=== PATIENT | female | born 1965 | race Caucasian/White ===

== ENCOUNTER 2022-12-20 09:48 | Outpatient (OUT) | payer BC, SELFPAY ==
--- NOTE | 2022-12-20 10:30 | MM_ITS ---
Patient: KINZA GONZALEZ Exam Date: 12/20/2022 : 1965 Gender:F Ordering : DR Paddy Ronquillo . Admission #: [id number] Family : DR MARSHALLPEPE ARAMBULA Order #: [id number] CLICK HERE TO VIEW EXAM RADIOLOGY REPORT PROCEDURE: MM TOMOSYNTHESIS SCREENING BI COMPARISON: MG MAMM SCREEN 3D BARBARA CAD, 11/09/2021. MG MAMM SCREEN 3D BARBARA CAD, 11/03/2020. MG MAMM SCREEN BARBARA W CAD, 10/28/2019. MG MAMM BARBARA SCRN W CAD DIG, 03/15/2015. INDICATIONS: Screening mammogram Z12.31 Calculator Name NCI Breast Cancer Risk Assessment Tool 5 Year Breast Cancer Risk 0.90% Lifetime Breast Cancer Risk 5.90% Personal Breast Cancer No Personal Ovarian Cancer No Treatments None Family Cancers Father with lung/brain cancer at age 71; Uncle-paternal with throat cancer at age ~75. LOCATION: [facility] BREAST COMPOSITION: Scattered areas fibroglandular density. FINDINGS: DIAGNOSTIC CATEGORY 2--BENIGN FINDING: RIGHT BREAST: No significant suspicious finding. Scattered benign-appearing nodules are present. No significant change has occurred. LEFT BREAST: No significant suspicious finding. Scattered benign-appearing nodules are present. No significant change has occurred. RECOMMENDATIONS: ROUTINE MAMMOGRAM AND CLINICAL EVALUATION IN 12 MONTHS. PLEASE NOTE: A NORMAL MAMMOGRAM DOES NOT EXCLUDE THE POSSIBILITY OF BREAST CANCER. A CLINICALLY SUSPICIOUS PALPABLE LUMP SHOULD BE BIOPSIED. Dictated by: Devon Jensen M.D. on 12/20/2022 at 14:43 Approved by: Devon Jensen M.D. on 12/20/2022 at 14:46
--- NOTE | 2022-12-20 10:30 | XR_ITS ---
[address] [address] Patient Name: KINZA GONZALEZ MRN: [id number] date: 1965 Sex: F Assigned Patient Location: [facility] Current Patient Location: [facility] Accession/Order Number: [id number] Exam Date: 12/20/2022 10:12 Report Date: 12/20/2022 10:48 At the request of: MARIANA REDD Procedure: XR DEXA axial skeleton EXAMINATION: XR DEXA axial skeleton HISTORY: Osteoporosis screening Z13.820 COMPARISON: DEXA bone densitometry 10/28/2019 TECHNIQUE: Dual-energy X-ray absorptiometry (DXA) was performed. FINDINGS: SPINE ANALYSIS: Average bone mineral density is 1.219 g/cm2. T-score (standard deviation relative to young adult mean): 0.3 . +5.3% change since prior study. HIP ANALYSIS: Lowest bone mineral density is within the right femoral neck, 0.94 g/cm2. T-score (standard deviation relative to young adult mean): -1.0 . -0.4% change since prior study. IMPRESSION: World [employer] Classification: Normal - Low Fracture Risk Electronically authenticated by: ZOFIA ALEXANDER Date: 12/20/2022 10:48
== END 2022-12-20 09:49 | disposition home or self-care (01) ==
LOC: RAD 09:48
PROVIDERS: PCP Family Medicine; Visit Provider Obstetrics & Gynecology
DX: Z12.31 Encounter for screening mammogram for malignant neoplasm of breast (principal); Z13.820 Encounter for screening for osteoporosis
CPT/HCPCS: 77063; 77067; 77080

== ENCOUNTER 2023-11-18 20:54 | Outpatient (REF) | payer BC, SELFPAY ==
[2023-11-21 13:08] LABS: Age Gdln ACOG Testing Note (.); HPV Aptima Negative (Negative); IGP, Aptima HPV, rfx 16/18,45 Note (.)
== END 2023-11-18 20:55 | disposition home or self-care (01) ==
LOC: LAB 20:54
PROVIDERS: PCP Family Medicine; Visit Provider Obstetrics & Gynecology
DX: Z01.419 Encounter for gynecological examination (general) (routine) without abnormal findings (principal)
CPT/HCPCS: 87624; 88175

== ENCOUNTER 2023-12-24 14:48 | Outpatient (OUT) | payer BC, SELFPAY ==
--- NOTE | 2023-12-24 14:50 | MM_ITS ---
Patient Name: KINZA GONZALEZ MR#: [id number] : 1965 Exam Date: 12/24/2023 Ordering Doctor: DR Paddy Ronquillo . RADIOLOGY REPORT PROCEDURE: MM TOMOSYNTHESIS SCREENING BI COMPARISON: MM TOMOSYNTHESIS SCREENING BI, 12/20/2022. MG MAMM SCREEN 3D BARBARA CAD, 11/09/2021. INDICATIONS: Screening Calculator Name NCI Breast Cancer Risk Assessment Tool 5 Year Breast Cancer Risk 0.90% Lifetime Breast Cancer Risk 5.70% Personal Breast Cancer No Personal Ovarian Cancer No Treatments None Family Cancers Father with lung/brain cancer at age 71; Uncle-paternal with throat cancer at age ~75. LOCATION: [facility] BREAST COMPOSITION: There are scattered areas of fibroglandular density. FINDINGS: DIAGNOSTIC CATEGORY 2--BENIGN FINDING. NO CHANGE FROM COMPARISON. Scattered benign-appearing nodules are present. Scattered benign-appearing calcifications are present. Scattered benign-appearing lymph nodes are present. RIGHT BREAST: No significant suspicious finding. LEFT BREAST: No significant suspicious finding. RECOMMENDATIONS: ROUTINE MAMMOGRAM AND CLINICAL EVALUATION IN 12 MONTHS. PLEASE NOTE: A NORMAL MAMMOGRAM DOES NOT EXCLUDE THE POSSIBILITY OF BREAST CANCER. A CLINICALLY SUSPICIOUS PALPABLE LUMP SHOULD BE BIOPSIED. Dictated by: Jostin Alexander MD on 12/25/2023 at 07:38 Approved by: Jostin Alexander MD on 12/25/2023 at 07:39
== END 2023-12-24 14:49 | disposition home or self-care (01) ==
LOC: MAMMO 14:48
PROVIDERS: PCP Family Medicine; Visit Provider Obstetrics & Gynecology
DX: Z12.31 Encounter for screening mammogram for malignant neoplasm of breast (principal); Z80.1 Family history of malignant neoplasm of trachea, bronchus and lung; Z80.8 Family history of malignant neoplasm of other organs or systems
CPT/HCPCS: 77063; 77067

== ENCOUNTER 2024-11-19 19:54 | Outpatient (REF) | payer BC, SELFPAY ==
--- OUTSIDE RECORDS SUMMARY | 2024-11-19 09:00 | XMS_ITS | Encounter Summary ---
Author Organization [facility] Address [address] [facility] [place] [address] Care Team Providers Care News Anchor Name Role Phone Zay Emmanuel DO Primary Care Provider [phone] Reason for Visit * Reason Comments Well Women Visit Encounter Details Date Type Department Care Team (Late Contact Info) Description 11/19/2024 9:00 AM EDT Office Visit [facility] OB [address] [facility] [facility] [address] Paddy Ronquillo [address] [facility] [address] [place] [address] Well woman exam with routine gynecological exam; Breast cancer screening by mammogram; Postmenopausal state Social History Tobacco Use Types Packs/Day Years Used Date Smoking Tobacco: Former Cigarettes Smokeless Tobacco: Never Alcohol Use Standard Drinks/Week Comments Yes 8 (1 standard drink = 0.6 oz pur e alcohol) Comments Unknown Sex and Gender Information Value Date Recorded Sex Assigned at Female 10/20/2022 8:49 AM EDT Legal Sex Female 11:47 PM EDT Gender Identity Female 10/20/2022 8:49 AM EDT Sexual Orientation Straight 10/20/2022 8: 49 AM EDT documented as of this encounter Last Filed Vital Signs Vital Sign Reading Time Taken Comments Blood Pressure 122/78 11/19/2024 9:24 AM EDT Pulse - - Temperature - - Respiratory Rate - - Oxygen Saturation - - Inhaled Oxygen Concentration - - Weight 78.5 kg (173 lb) 11/19/2024 9:24 AM EDT Height - - Body Mass Index 31.64 11/18/2023 9:01 AM EDT documented in this encounter Progress Notes * Pam Dassasha, CLERK ANALYST - 11/19/2024 9:00 AM EDT Reason for Appointment: Patient ID: Kerry Lopez is a 59 y.o. female who presents for Well Women Visit Patient presents today for Annual Exam. MEDICATIONS Current Outpatient Medications Medication Instructions albuterol HFA 90 mcg/act inhaler 2 puffs, Inhalation, Every 4 hours PRN budesonide-formoterol (Symbicort) 80-4.5 MCG/ACT inhaler 2 puffs, Inhalation, 2 times daily, Rinse mouth with water after use to reduce aftertaste and incidence of candidiasis. Do not swallow. cetirizine (ZyrTEC) 10 MG tablet Daily FLUoxetine (PROZAC) 20 mg, Oral, Daily lisinopril 20 mg, Oral, Daily MAGNESIUM GLYCINATE PO Oral, Take 2 gummies a day Multiple Vitamins-Minerals (VITAMINS TO GO WOMEN PO) Oral, SHIVAM Vaginal moisture Take 2 capsules a day omeprazole OTC (PRILOSEC OTC) 20 mg, Daily before breakfast phentermine (Adipex-P) 37.5 MG tablet TAKE 1 TABLET BY MOUTH BEFORE BREAKFAST Specialty Vitamins Products (MENOPAUSE RELIEF PO) Oral, SHIVAM Take 2 gummies Specialty Vitamins Products (MENOPAUSE RELIEF PO) Take by mouth SUMAtriptan (IMITREX) 100 mg, Oral, 2 times daily PRN ALLERGIES No Known Allergies PROBLEMS Active Ambulatory Problems Diagnosis Date Noted Pain in female genitalia on intercourse 11/18/2023 Postmenopausal state 11/18/2023 Well woman exam with routine gynecological exam 11/18/2023 Resolved Ambulatory Problems Diagnosis Date Noted No Resolved Ambulatory Problems Past Medical History: Diagnosis Date Abnormal weight gain Anxiety with depression Dysmenorrhea Hot flashes due to menopause Mood change Obesity Uterine leiomyoma HISTORY PAST MEDICAL HISTORY SOCIAL HISTORY Past Medical History: Diagnosis Date Abnormal weight gain Anxiety with depression Dysmenorrhea Hot flashes due to menopause Mood change Obesity Uterine leiomyoma Social History Tobacco Use Smoking status: Former Types: Cigarettes Smokeless tobacco: Never Vaping Use Vaping status: Never Used Substance Use Topics Alcohol use: Yes Alcohol/week: 8.0 standard drinks of alcohol Types: 8 Shots of liquor per week Drug use: Never FAMILY HISTORY Family History Problem Relation Name Age of Onset Hypertension Mother SURGICAL HISTORY Past Surgical History: Procedure Laterality Date SECTION, LOW TRANSVERSE CHOLECYSTECTOMY DILATION AND CURETTAGE OF UTERUS HYSTERECTOMY 08/11/2018 [place] TONSILLECTOMY & ADENOIDECTOMY <AGE 13 TUBAL LIGATION VAGINA RECONSTRUCTION SURGERY vaginal tear repair REVIEW OF SYSTEMS Review of Systems: Review of Systems Constitutional: Negative. HENT: Negative. Eyes: Negative. Respiratory: Negative. Cardiovascular: Negative. Gastrointestinal: Negative. Genitourinary: Negative. Musculoskeletal: Negative. Skin: Negative. Neurological: Negative. All other systems reviewed and are negative. Hematological: Negative. Endocrine: Negative. Allergic/Immunologic: Negative. OBJECTIVE Objective: Physical Exam Constitutional: Appearance: Normal appearance. She is well-developed. Genitourinary: Vulva normal. Vaginal cuff intact. Cervix is absent. Uterus is absent. Breasts: Breasts are soft. Right: Normal. Left: Normal. Cardiovascular: Rate and Rhythm: Normal rate and regular rhythm. Abdominal: General: Bowel sounds are normal. There is no distension. Palpations: Abdomen is soft. Tenderness: There is no abdominal tenderness. There is no guarding or rebound. Musculoskeletal: General: No swelling. Normal range of motion. Right lower leg: No edema. Left lower leg: No edema. Neurological: Mental Status: She is alert and oriented to person, place, and time. Skin: General: Skin is warm and dry. Psychiatric: Mood and Affect: Mood normal. Behavior: Behavior normal. Vitals and nursing note reviewed. Exam conducted with a professor of history present. Vitals: Estimated body mass index is 31.64 kg/m?? as calculated from the following: Height as of 11/18/23: 5' 2 . Weight as of this encounter: 173 lb. BP: 122/78 No LMP recorded. ASSESSMENT & PLAN ICD-10-CM 1. Well woman exam with routine gynecological exam Z01.419 THIN PREP TIS PAP AND HR HPV DNA 2. Breast cancer screening by mammogram Z12.31 Bilateral screening mammogram Bilateral screening mammogram 3. Postmenopausal state Z78.0 Annual: Patient presents today for an annual exam. Patient states she is doing well and has no complaints. Pap was obtained without difficulty and patient given mammogram order to have scheduled/obtained. Discussed patient supplements by [employer] brand for menopause, that seem to be helping. Orders Placed This Encounter Procedures Bilateral screening mammogram Follow Up: Patient is to return in one year for annual unless needed otherwise. Documented by Pam Acevedo LPN on behalf of: Paddy Ronquillo DO documented in this encounter Plan of Treatment Upcoming Encounters Date Type Department Care Team (Late st Contact Info) Description 11/30/2025 10:00 AM EDT Office Visit [facility] [address] [facility] [facility] [phone] Paddy Ronquillo DO [address] [facility] [place] [address] Scheduled Orders Name Type Priority Associated Diagnoses Orde r Schedule Bilateral screening mammogram Imaging Routine Breast cancer screening by mammogram Expected: 11/19/2024, Expires: 01/19/2026 THIN PREP TIS PAP AND HR HPV DNA Pathology and Cytology Routine Well woman exam with routine gynecological exam Ordered: 11/19/2024 documented as of this encounter Visit Diagnoses Diagnosis Well woman exam with routine gynecological exam Routine gynecological examination Breast cancer screening by mammogram Postmenopausal state Asymptomatic postmenopausal status (age-related) (natural) documented in this encounter Care Teams News Anchor Relationship Specialty Start Date End Date Zay Emmanuel DO PCP - General 11/13/22 documented as of this encounter
--- OUTSIDE RECORDS SUMMARY | 2024-11-19 19:57 | XMS_ITS | Encounter Summary ---
Author Organization [facility] Address [address] [facility] [place] [address] Care Team Providers Care Receiver Name Role Phone Héctormabel Zay Renu ANDREW Primary Care Provider [phone] Encounter Details Date Type Department Care Team (Late Contact Info) Description 12/27/2022 Abstract [facility] [address] [place] [address] Paddy Ronquillo [facility] [address] [place], [place] [address] Social History Tobacco Use Types Packs/Day Years [...] AM EDT documented as of this encounter Plan of Treatment Upcoming Encounters Date Type Department Care Team (Late Contact Info) Description 11/30/2025 10:00 AM EDT Office Visit [facility] [address] [place] [address] Paddy Ronquillo [facility] [address] [place], [place] [address] documented as of this encounter Visit Diagnoses Not on filedocumented in this encounter Care Teams Receiver Relationship Specialty Start Date End Date Zay Emmanuel DO PCP - General 11/13/22 documented as of this encounter
--- OUTSIDE RECORDS SUMMARY | 2024-11-19 19:57 | XMS_ITS | Clinical Summary ---
Author Organization [facility] Address [address] [place] [address] Care Team Providers Care Chief Passenger Ship Steward/Stewardess Name Role Phone Zay Arambula DO Primary Care Provider [phone] Allergies No known active allergies Medications lisinopril 10 MG tablet Take 20 mg by mouth Daily Active budesonide-form oterol (Symbicort) 80-4.5 MCG/ACT inhaler Inhale 2 puffs in the morning and 2 puffs before bedtime. Rinse mouth with water after use to reduce aftertaste and incidence of candidiasis. Do not swallow.. Active albuterol HFA 90 mcg/act inhaler Inhale 2 puffs every 4 (four) hours if needed for wheezing. Active cetirizine (ZyrTEC) 10 MG tablet Daily 4 Active FLUoxetine (PROzac) 20 MG tablet Take 20 mg by mouth Daily 4 Active phentermine (Adipex-P) 37.5 MG tablet TAKE 1 TABLET BY MOUTH BEFORE BREAKFAST Active SUMAtriptan (Imitrex) 100 MG tablet Take 100 mg by mouth 2 (two) times a day as needed 3 Active Multiple Vitamins-Minera ls (VITAMINS TO GO WOMEN PO) Take by mouth SHIVAM Vaginal moisture Take 2 capsules a day Active omeprazole OTC (PriLOSEC OTC) 20 MG EC tablet Take 20 mg by mouth in the morning. Take before meals. Do not crush, chew, or split. Active MAGNESIUM GLYCINATE PO Take by mouth Take 2 gummies a day Active Specialty Vitamins Products (MENOPAUSE RELIEF PO) Take by mouth SHIVAM Take 2 gummies Active Specialty Vitamins Products (MENOPAUSE RELIEF PO) Take by mouth Activ e Active Problems Problem Noted Date Diagnosed Date Pain in female genitalia on intercourse 11/18/19 Postmenopausal state 11/18/2023 Well woman exam with routine gynecological exam 11/18/2023 Encounters Date Type Department Care Team Description 11/19/2024 9:00 AM EDT Office Visit [facility] [address] [facility] [place] [address] Paddy Ronquillo, Well woman exam with routine gynecological exam; Breast cancer screening by mammogram; Postmenopausal state 11/19/2024 Bamboo flowsheet [facility] [address] [facility] [place] [address] Paddy Ronquillo DO 11/14/2024 Travel 11/12/2024 Travel from Last 3 Months Family History Medical History Relation Name Comments Hypertension Mother Relation Name Status Comments Brother 1 Alive Brother 2 Daughter 1 Alive Daughter 2 Alive Father Mother Alive Son Alive Social History Tobacco Use Types Packs/Day Years Used Date Smoking Tobacco: Former Cigarettes Smokeless Tobacco: Never Tobacco Cessation:Counseling Given: Not Answered Alcohol Use Standard Drinks/Week Comments Yes 8 (1 standard drink = 0.6 oz pur e alcohol) Comments Unknown Sex and Gender Information Value Date Recorded Sex Assigned at Female 10/20/2022 8:49 AM EDT Legal Sex Female 11:47 PM EDT Gender Identity Female 10/20/2022 8:49 AM EDT Sexual Orientation Straight 10/20/2022 8: 49 AM EDT Last Filed Vital Signs Vital Sign Reading Time Taken Comments Blood Pressure 122/78 11/19/2024 9:24 AM EDT Pulse - - Temperature - - Respiratory Rate - - Oxygen Saturation - - Inhaled Oxygen Concentration - - Weight 78.5 kg (173 lb) 11/19/2024 9:24 AM EDT Height 157.5 cm (5' 2 ) 11/18/2023 9:01 AM EDT Body Mass Index 31.64 11/18/2023 9:01 AM EDT Plan of Treatment Upcoming Encounters Date Type Department Care Team (Late st Contact Info) Description 11/30/2025 10:00 AM EDT Office Visit [facility] [address] [facility] [place] [address] Paddy Ronquillo, DO [address] [place] [address] Health Maintenance Due Date Last Done Comments CT Colonography 1965 Colonoscopy 1965 FIT 1965 FOBT 1965 Sigmoidoscopy 1965 Mammogram 12/24/2024 12/25/2023 Influenza Vaccine (Season Ended) 2025 Colorectal Cancer Screening 12/21/2025 FIT-DNA 12/21/2025 12/21/2022, 04/28/2018 Pap Smear 11/07/2026 11/07/2021 Cervical Cancer Screening 01/01/2028 HPV/Cotest 01/01/2028 12/31/2022 Procedures Procedure Name Priority Date/Time Associated Diagnosis Comments MM TOMOSYNTHESIS SCREENING BI 12/25/2023 7:39 AM EDT THINPREP PAP AND HPV MRNA E6/E7 W/RFL HPV 16,18/45 Routine 12/31/2022 1:54 PM EDT Well woman exam with routine gynecological exam PAP SMEAR Routine 11/07/2021 12:00 AM EDT from Last 3 Months or Most Recently Relevant to Health Maintenance Results * MM TOMOSYNTHESIS SCREENING BI (12/25/2023 7:39 AM EDT) Anatomical Region Laterality Modality Other 12/25/2023 7:39 AM EDT Narrative 12/25/2023 7:40 AM EDT The [address] [address] Mammography Report Signed Patient: KINZA LOPEZ MR#: [id number] : 1965 Acct:[id number] Age/Sex: 58 / F ADM Date: 12/24/23 Loc: MAMMO Attending Dr: Paddy Ronquillo D.O. Ordering Physician: Paddy Ronquillo D.O. Results: Date of Service: 12/24/23 Follow Up: Procedure(s): MM tomosynthesis screening BI Accession Number(s): [id number] cc: Paddy Ronquillo D.O.; IESHA ARAMBULA Patient Name: KINZA LOPEZ MR#: [id number] : 1965 Exam Date: 12/24/2023 Ordering Doctor: DR Paddy Ronquillo . RADIOLOGY REPORT PROCEDURE: MM TOMOSYNTHESIS SCREENING BI COMPARISON: MM TOMOSYNTHESIS SCREENING BI, 12/20/2022. MG MAMM SCREEN 3D BARBARA CAD, 11/09/2021. INDICATIONS: Screening Calculator Name NCI Breast Cancer Risk Assessment Tool 5 Year Breast Cancer Risk 0.90% Lifetime Breast Cancer Risk 5.70% Personal Breast Cancer No Personal Ovarian Cancer No Treatments None Family Cancers Father with lung/brain cancer at age 71; Uncle-paternal with throat cancer at age 75. LOCATION: [facility] BREAST COMPOSITION: There are scattered areas of fibroglandular density. FINDINGS: DIAGNOSTIC CATEGORY 2--BENIGN FINDING. NO CHANGE FROM COMPARISON. Scattered benign-appearing nodules are present. Scattered benign-appearing calcifications are present. Scattered benign-appearing lymph nodes are present. RIGHT BREAST: No significant suspicious finding. LEFT BREAST: No significant suspicious finding. RECOMMENDATIONS: ROUTINE MAMMOGRAM AND CLINICAL EVALUATION IN 12 MONTHS. PLEASE NOTE: A NORMAL MAMMOGRAM DOES NOT EXCLUDE THE POSSIBILITY OF BREAST CANCER. A CLINICALLY SUSPICIOUS PALPABLE LUMP SHOULD BE BIOPSIED. Dictated by: Jostin Alexander MD on 12/25/2023 at 07:38 Approved by: Jostin Alexander MD on 12/25/2023 at 07:39 Dictated By: Jostin Alexander M.D. Signed By: 12/25/23 0740 DD/ 0739 TD/TT: Mail Processing Clerk: Procedure Note Radiology, Radiologist, - 12/25/2023 [place] [address] Mammography Report Signed Patient: KINZA LOPEZ DMR#: [id number] : 1965Acct:[id number] Age/Sex: 58 / FADM Date: 12/24/23 Loc: MAMMO Attending Dr: Paddy Ronquillo D.O. Ordering Physician: Paddy Ronquillo D.O.Results: Date of Service: 12/24/23Follow Up: Procedure(s): MM tomosynthesis screening BI Accession Number(s): [id number] cc: Paddy Ronquillo D.O.; ZOFIAYonathanIESHA Patient Name: KINZA LOPEZ MR#: [id number] : 1965 Exam Date: 12/24/2023 Ordering Doctor: DR Paddy Ronquillo . RADIOLOGY REPORT PROCEDURE: MM TOMOSYNTHESIS SCREENING BI COMPARISON: MM TOMOSYNTHESIS SCREENING BI, 12/20/2022. MG MAMM [id number] BARBARA CAD, 11/09/2021. INDICATIONS: Screening Calculator Name NCI Breast Cancer Risk Assessment Tool 5 Year Breast Cancer Risk 0.90% Lifetime Breast Cancer Risk 5.70% Personal Breast Cancer No Personal Ovarian Cancer No Treatments None Family Cancers Father with lung/brain cancer at age 71; Uncle-paternal with throat cancer at age 75. LOCATION: [facility] BREAST COMPOSITION: There are scattered areas of fibroglandulardensity. FINDINGS: DIAGNOSTIC CATEGORY 2--BENIGN FINDING. NO CHANGE FROM COMPARISON. Scattered benign-appearing nodules are present. Scatteredbenign-appearing calcifications are present. Scattered benign-appearing lymph nodes are present. RIGHT BREAST: No significant suspicious finding. LEFT BREAST: No significant suspicious finding. RECOMMENDATIONS: ROUTINE MAMMOGRAM AND CLINICAL EVALUATION IN 12 MONTHS. PLEASE NOTE: A NORMAL MAMMOGRAM DOES NOT EXCLUDE THE POSSIBILITY OFBREAST CANCER. A CLINICALLY SUSPICIOUS PALPABLE LUMP SHOULD BE BIOPSIED. Dictated by: Jostin Alexander MD on 12/25/2023 at 07:38 Approved by: Jostin Alexander MD on 12/25/2023 at 07:39 Dictated By: Jostin Alexander M.D. Signed By:12/25/23 0740 DD/ 0739 TD/TT: Mail Processing Clerk: us Paddy Yg DO [facility] Final Result * THINPREP PAP AND HPV MRNA E6/E7 W/RFL HPV 16,18/45 (12/31/2022 1:54 PM EDT) us Paddy Yg DO LAB BLOOD ORDERABLES Final Resul t EXTERNAL LAB * Pap Smear (11/07/2021 12:00 AM EDT) Swab Cervical swab / Unknown us Historical Provider LAB CYTOLOGY ORDERABLES F inal Result EXTERNAL LAB from Last 3 Months or Most Recently Relevant to Health Maintenance Insurance Care Teams Chief Passenger Ship Steward/Stewardess Relationship Specialty Start Date End Date Zay Arambula DO PCP - General 11/13/22
--- OUTSIDE RECORDS SUMMARY | 2024-11-19 19:57 | XMS_ITS | Encounter Summary ---
Author Organization [facility] Address [address] [facility] [place] [address] Care Team Providers Care Coiler Operator Name Role Phone Héctormabel Zay Renu ANDREW Primary Care Provider [phone] Encounter Details Date Type Department Care Team (Late Contact Info) Description 12/27/2022 Abstract [facility] [address] [place] [address] [facility] [address] [place], [place] [address] Social History Tobacco Use Types Packs/Day Years [...] 11/30/2025 10:00 AM EDT Office Visit [facility] [address] [place] [address] [facility] [address] [place], [place] [address] documented as of this encounter Visit Diagnoses Not on filedocumented in this encounter Care Teams Coiler Operator Relationship Specialty Start Date End Date Zay Emmanuel DO PCP - General 11/13/22 documented as of this encounter
--- OUTSIDE RECORDS SUMMARY | 2024-11-19 19:57 | XMS_ITS | Encounter Summary ---
Author Organization [facility] Address [address] [facility] [place] [address] Care Team Providers Care Electric Powerline Examiner Name Role Phone Zay Emmanuel DO Primary Care Provider Encounter Details Date Type Department Care Team (Latest Contact Info) Description 11/12/2024 Travel Social History Tobacco Use Types Packs/Day Years [...] EDT Office Visit [facility] [address] [place] [phone] Paddy Ronquillo DO [address] [facility] [place] [address] documented as of this encounter Visit Diagnoses Not on filedocumented in this encounter Care Teams Electric Powerline Examiner Relationship Specialty Start Date End Date Zay Emmanuel DO PCP - General 11/13/22 documented as of this encounter
--- OUTSIDE RECORDS SUMMARY | 2024-11-19 19:57 | XMS_ITS | Encounter Summary ---
Author Organization [facility] Address [address] [facility] [place] [address] Care Team Providers Care Sprinkler Inspector Name Role Phone Zay Emmanuel Renu ANDREW Primary Care Provider [phone] Encounter Details Date Type Department Care Team (Late Contact Info) Description 11/12/2022 Abstract [facility] [address] [place] [address] [address]addy Ronquillo[address]i, [facility] Social History Tobacco Use Types Packs/Day Years Used Date Smoking Tobacco: Never Assessed Comments Unknown Sex and Gender Information Value Date Recorded Sex Assigned at Female 10/20/2022 8:49 AM EDT Legal Sex Female 11:47 PM EDT Gender Identity Female 10/20/2022 8:49 AM EDT Sexual Orientation Straight 10/20/2022 8: 49 AM EDT COVID-19 Exposure Response Date Recorded In the last 10 days, have yo u been in contact with someone who was confirmed or suspected to have Coronavirus/COVID-19? No / Unsure 11/12/2022 2:45 PM EDT documented as of this encounter Plan of Treatment Upcoming Encounters Date Type Department Care Team (Late Contact Info) Description 11/30/2025 10:00 AM EDT Office Visit [facility] [address] [place] [address] Paddy Ronquillo [facility] Kw[place]i, [facility]11 documented as of this encounter Visit Diagnoses Not on filedocumented in this encounter Care Teams Sprinkler Inspector Relationship Specialty Start Date End Date Zay Emmanuel DO PCP - General 11/13/22 documented as of this encounter
--- OUTSIDE RECORDS SUMMARY | 2024-11-19 19:57 | XMS_ITS | Clinical Summary ---
Author Organization [facility] Address [address] [place], [place] [id number] Care Team Providers Care Business English Instructor Name Role Phone Unavailable Primary Care Provider Unavailabl e Social History Tobacco Use Types Packs/Day Years Used Date Smoking Tobacco: Never Assessed Comments Unknown Sex and Gender Information Value Date Recorded Sex Assigned at Not on file Legal Sex Female 11:02 AM EDT Gender Identity Not on file Sexual Orientation Not on file Plan of Treatment Not on file
--- OUTSIDE RECORDS SUMMARY | 2024-11-19 19:57 | XMS_ITS | Encounter Summary ---
Author Organization [facility] Address [address] [facility] [place] [address] Care Team Providers Care Finishing And Shipping Supervisor Name Role Phone Héctormabel Zay Renu ANDREW Primary Care Provider [phone] Encounter Details Date Type Department Care Team (Late Contact Info) Description 12/27/2022 Abstract [facility] [address] [place] [address] Paddy Ronquillo [facility] Kw[place]i, [place] [address] Social History Tobacco Use Types Packs/Day Years [...] 11/30/2025 10:00 AM EDT Office Visit [facility] [address] [place] [address] Paddy Ronquillo [facility] [address] [place], [place] [address] documented as of this encounter Visit Diagnoses Not on filedocumented in this encounter Care Teams Finishing And Shipping Supervisor Relationship Specialty Start Date End Date Zay Emmanuel DO PCP - General 11/13/22 documented as of this encounter
--- OUTSIDE RECORDS SUMMARY | 2024-11-19 19:57 | XMS_ITS | Encounter Summary ---
Author Organization [facility] Address [address] [place] [address] Care Team Providers Care Photovoltaic Subcontractor Name Role Phone Unavailable Primary Care Provider Unavailabl e Source Comments In the event this information is protected by the Federal Confidentiality of Alcohol and Drug AbusePatient Records regulations: The Federal rules restrict any use of the information to criminally investigate or prosecute any alcohol or drug abuse patient.[facility] Encounter Details Date Type Department Care Team (Late st Contact Info) Description 12/24/2023 Lab Requisition [facility] [place] [address] Spike Mcgregor MD [address] [place] [phone] Person encountering health services to consult on behalf of another person Social History Tobacco Use Types Packs/Day Years Used Date Smoking Tobacco: Never Assessed Comments Unknown Sex and Gender Information Value Date Recorded Sex Assigned at Not on file Legal Sex Female 11:02 AM EDT Gender Identity Not on file Sexual Orientation Not on file documented as of this encounter Plan of Treatment Not on file documented as of this encounter Procedures Procedure Name Priority Date/Time Associated Diagnosis Comments SURGICAL PATHOLOGY REFERENCE LAB CONSULT Routine 12/24/2023 11:10 AM EDT Person encountering health services to consult on behalf of another person documented in this encounter Results * SURGICAL PATHOLOGY REFERENCE LAB CONSULT (12/24/2023 11:10 AM EDT) Case Report Surgical Pathology Report Case: [id number] Authorizing Provider: Spike Mcgregor, Collected: 12/24/2023 11:10 AM Ordering Location: [facility] Received: 12/24/2023 11:09 AM [facility] Pathologist: Nani Dorsey MD Specimen: Slide(s), 1 SLIDE [id number] 12/24/2023 5:08 PM EDT [facility] FINAL DIAGNOSIS A. Skin, left axilla, shave biopsy: - Squamous hyperplasia with acantholytic dyskeratosis, see comment. ÁNGEL/roberto 12/24/2023 12/24/2023 5:08 PM EDT [facility] at 1708 EDT Diagnosis Comment Thank you for consulting on this case of a 58-year-old woman with a lesion on the left axilla. Histologic sections demonstrate a lobular, endophytic, squamous proliferation with hyperkeratosis, hypergranulosis, and acanthosis with downward extension of the rete ridges into villus projections. The epidermis shows marked acantholysis from the suprabasilar region to the upper third of the epidermis, with scattered dyskeratosis of keratinocytes. The findings are those of squamous hyperplasia with acantholytic dyskeratosis. As a solitary lesion the findings are most consistent with a warty dyskeratoma. If part of a rash, the findings could be consistent with Blanco's disease. Clinical correlation remains essential. Thank you for consulting on this case and please keep me apprised of any pertinent clinical follow-up. 12/24/2023 5:08 PM EDT [facility] Clinical History CONSULT REQUESTED 12/24/2023 5:08 PM EDT [facility] Performing Lab Diagnostic interpretation performed at [facility], [address] [place] [address]# [id number] Professor Of Environmental Studies: Patrice Anguiano M.D. 12/24/2023 5:08 PM EDT [facility] Blocks or Slides MICROSCOPE SLIDE / Unknown 12/24/2023 11:10 AM EDT 12/24/2023 11:09 AM EDT us Spike Dsouza MD SURGICAL PATHOLOGY Fin al Result Performing Organization Address City/State/[facility] Co de Phone Number [facility] [place] [id number] [place] [address], documented in this encounter Visit Diagnoses Diagnosis Person encountering health services to consult on behalf of another person Other person consulting on behalf of another person documented in this encounter
--- OUTSIDE RECORDS SUMMARY | 2024-11-19 19:57 | XMS_ITS | Encounter Summary ---
Author Organization [facility] Address [address] [facility] [place] [address] Care Team Providers Care Tax Professional Name Role Phone HéctorZay monroe Renu ANDREW Primary Care Provider [phone] Encounter Details Date Type Department Care Team (Late st Contact Info) Description 12/25/2023 Clinisync Result Encounter [facility] External Department Unsolicited Paddy Ronquillo, DO [address] [place] [id number] Social History Tobacco Use Types Packs/Day Years [...] EDT Office Visit [facility] [address] [place] [phone] Paddy Ronquillo DO [address] [place] [address] documented as of this encounter Procedures Procedure Name Priority Date/Time Associated Diagnosis Comments MM TOMOSYNTHESIS SCREENING BI 12/25/2023 7:39 AM EDT documented in this encounter Results * MM TOMOSYNTHESIS SCREENING BI (12/25/2023 7:39 AM EDT) Anatomical Region Laterality Modality Other 12/25/2023 7:39 AM EDT Narrative 12/25/2023 7:40 [place] [address] Mammography Report Signed Patient: KINZA LOPEZ MR#: [id number] : 1965 Acct:[id number] Age/Sex: 58 / F ADM Date: 12/24/23 Loc: MAMMO Attending Dr: Paddy Ronquillo D.O. Ordering Physician: Paddy Ronquillo D.O. Results: Date of Service: 12/24/23 Follow Up: Procedure(s): MM tomosynthesis screening BI Accession Number(s): [id number] cc: Paddy Ronquillo D.O.; IESHA EMMANUEL Patient Name: KINZA LOPEZ MR#: [id number] : 1965 Exam Date: 12/24/2023 Ordering Doctor: [...] throat cancer at age 76. LOCATION: [facility] BREAST COMPOSITION: There are scattered areas [...] Signed By: 12/25/23 0740 DD/ 0739 TD/TT: Utility Gelatin Maker: Procedure Note Radiology, Radiologist, MD - 12/25/2023 [place] [address] Mammography Report Signed Patient: KINZA LOPEZ DMR#: [id number] : 1965Acct:[id number] Age/Sex: 58 / FADM Date: 12/24/23 Loc: MAMMO Attending Dr: Paddy Ronquillo D.O. Ordering Physician: Paddy Ronquillo D.O.Results: Date of Service: 12/24/23Follow Up: Procedure(s): MM tomosynthesis screening BI Accession Number(s): [id number] cc: Paddy Ronquillo D.O.; IESHA EMMANUEL Patient Name: KINZA LOPEZ MR#: [id number] : 1965 Exam Date: 12/24/2023 Ordering Doctor: DR Paddy Ronquillo . RADIOLOGY REPORT PROCEDURE: MM TOMOSYNTHESIS SCREENING BI COMPARISON: MM TOMOSYNTHESIS SCREENING BI, 12/20/2022. MG MAMM [id number] BARBARA CAD, 11/09/2021. INDICATIONS: Screening Calculator Name NCI Breast Cancer Risk Assessment Tool 5 Year Breast Cancer Risk 0.90% Lifetime Breast Cancer Risk 5.70% Personal Breast Cancer No Personal Ovarian Cancer No Treatments None Family Cancers Father with lung/brain cancer at age 71; Uncle-paternal with throat cancer at age 75. LOCATION: [facility] BREAST COMPOSITION: There are scattered areas [...] 07:39 Dictated By: Jostin Alexander M.D. Signed By:12/25/2340 DD/ 8 TD/TT: Utility Gelatin Maker: Paddy Ronquillo DO [facility] Final Result documented in this encounter Visit Diagnoses Not on filedocumented in this encounter Care Teams Tax Professional Relationship Specialty Start Date End Date Zay Emmanuel DO PCP - General 11/13/22 documented as of this encounter
--- OUTSIDE RECORDS SUMMARY | 2024-11-19 19:57 | XMS_ITS | Encounter Summary ---
Author Organization [facility] Address [address] [facility] [place] [address] Care Team Providers Care Technician Support Association Name Role Phone Héctormabel Zay Renu ANDREW Primary Care Provider [phone] Encounter Details Date Type Department Care Team (Late Contact Info) Description 11/19/2024 Bamboo flowsheet [facility] [address] [place] [address] Paddy Ronquillo [address] [place], [place] [address] Social History Tobacco Use Types Packs/Day Years [...] 11/30/2025 10:00 AM EDT Office Visit [facility] [address] [place] [address] Paddy Ronquillo [facility] [place] [address] documented as of this encounter Visit Diagnoses Not on filedocumented in this encounter Care Teams Technician Support Association Relationship Specialty Start Date End Date Zay Emmanuel DO PCP - General 11/13/22 documented as of this encounter
--- OUTSIDE RECORDS SUMMARY | 2024-11-19 19:58 | XMS_ITS | CCD ---
Author Organization [facility] CliniSypr Care Team Providers Care Safety Instructor Name Role Phone Zay Arambula Unavailable DO Zay Arambula Primary Care Provider DO Zay Arambula Attending Provider [phone] ZAY ARAMBULA Primary Care Unavailable IVANIA ., DR PEÑA Attending Unavailable IVANIA ., DR PEÑA Consulting Unavailable IVANIA ., DR PEÑA Admitting Unavailable DO Zay Arambula Primary Care Provider DO Zay Arambula Attending Provider AJAY NEWBY Attending Unavailable MARIANA RONQUILLO Attending Unavailable DO Zay Arambula Primary Care Provider [phone] DO Zay Arambula Attending Provider [phone] Zay Arambula DO Primary Care Provider [phone] Zay Arambula DO Attending Provider [phone] Zay Arambula Primary Care Unavailable Zay Arambula Attending Unavailable Zay Arambula Admitting Unavailable Zay Arambula Attending Unavailable Zay Arambula Admitting Unavailable Zay Arambula Primary Care Unavailable Zay Arambula Attending Unavailable Zay Arambula Admitting Unavailable Zay Arambula Primary Care Unavailable Zay Arambula Attending Unavailable Zay Arambula Admitting Unavailable Zay Arambula Primary Care Unavailable Medications Current Medications Medication Drug Class(es) Dates Sig (Normalized) Sig (Original) cetirizine hydrochloride 10 mg oral tablet (20 sources) Histamine-1 Receptor Antagonist Start: 08-07-2023 take 1 tablet by mouth once daily Cetirizine (Zyrtec) 10 mg tablet Active 10 MG PO Daily August 07, 2023 1:00am FreeTextSi tablet Orally Once a day; Note: Source Status: Taking; Provider: Cholo Collazo ( ) take 1 tablet by messi th every twenty-four hours ZyrTEC Allergy 10 MG 1 tablet Orally Once a day Active FLUoxetine 40 mg oral capsule (20 sources) Serotonin Reuptake Inhibitor Start: 09-09-2024 take 1 capsule by mouth once daily Fluoxetine (Prozac) 40 mg capsule Active 40 MG PO Daily September 09, 2024 12:00am Start: 08-07-2023 End: 09-09-2024 take 1 capsule by mouth once daily Fluoxetine 20 mg capsule Discontinued 20 MG PO Daily September 09, 2024 12:00am September 09, 2024 9:05am Start: 05-16-2023 take 1 tablet by messi th every twenty-four hours FLUoxetine HCl 20 MG 1 tablet Orally Once a day for 30 days Apr, Active lisinopril 20 mg oral tablet (20 sources) Angiotensin Converting Enzyme Inhibitor Start: 09-09-2024 take 1 tablet by mouth once daily Lisinopril 20 mg tablet Active 20 MG PO Daily September 09, 2024 9:45am Start: 04-30-2017 End: 09-09-2024 take 1 tablet by mouth once daily Lisinopril 10 mg tablet Discontinued 10 MG PO Daily November 25, 2023 4:30pm September 09, 2024 9:50am magnesium gluconate 550 mg oral tablet (3 sources) Start: 09-09-2024 take 1 tablet by mouth once daily Magnesium Gluconate 30 mg (550 mg) tablet Active 30 MG PO Daily September 09, 2024 12:00am omeprazole 20 mg delayed release oral capsule (3 sources) Proton Pump Inhibitor Start: 09-09-2024 take 1 capsule by mouth once daily Omeprazole 20 mg capsule,delayed release(DR/EC) Active 20 MG PO Daily September 09, 2024 12:00am ProAir HFA 108 (90 Base) MCG/ACT (18 sources) Start: 08-06-2017 take 2 puff(s) by inhalation every four hours as needed ProAir HFA 108 (90 Base) MCG/ACT 2 puffs as needed Inhalation every 4 hrs Jul, Active Start: 08-06-2017 take 2 puff(s) by in halation every four hours as needed ProAir HFA 108 (90 Base) MCG/ACT 2 puffs as needed Inhalation every 4 hrs prn Jul, Active Completed/Discontinued Medications Medication Drug Class(es) Dates Sig (Normalized) Sig (Original) [id number] 200 actuat albuterol 0.09 mg/actuat metered dose inhaler (20 sources) beta2-Adrenergic Agonist Start: 08-06-2017 take 2 puff(s) by inhalation every four hours as needed ProAir HFA 108 (90 Base) MCG/ACT 2 puffs as needed Inhalation every 4 hrs prn Jul, Active Start: 08-06-2017 Start: 04-30-2017 End: 08-09-2023 Albuterol Sulfate (Proair Hf a) 90 mcg/actuation HFA aerosol inhaler Discontinued 2 INH INHALATION Q6H as needed for Shortness Of Breath 8.5 August 08, 2023 3:16pm August 09, 2023 1:07pm azithromycin 250 mg oral tablet (15 sources) Macrolide Antimicrobial Start: 02-11-2024 End: 04-23-2024 Azithromycin (Zithromax Z-Sabas) 250 mg tablet Discontinued 0 PO .COMPLEX 6 April 14, 2024 12:00am April 23, 2024 4:50pm For 250 mg dose pack: take 500 mg today (day 1), then 250 mg for 4 days (days 2-5) PO Start: 09-24-2022 Zithromax Z-Pa k 250 MG as directed Orally as directed Sep, Active Start: 06-13-2021 Zithromax Z-Pa k 250 MG 2 tablet on the first day, then 1 tablet daily for 4 days Orally Once a day for 5 day(s) May, Active Start: 06-13-2021 120 actuat budesonide 0.16 mg/actuat / formoterol fumarate 0.0045 mg/actuat metered dose inhaler (20 sources) Corticosteroid, beta2-Adrenergic Agonist Start: 06-13-2023 take 2 puff(s) by inhalation once daily Budesonide-Formoterol Fumarate 160-4.5 MCG/ACT 2 puffs Inhalation Once a day May, Active Start: 04-30-2017 End: 09-09-2024 take 1 puff(s) by inhalation twice daily Budesonide-Formoterol 160-4.5 mcg/actuation HFA aerosol inhaler Discontinued 2 PUFF INHALATION Twice daily 10.2 May 27, 2024 12:56pm September 09, 2024 9:50am Start: 08-17-2015 take 2 puff(s) by in halation once daily as needed Symbicort 160-4.5 MCG/ACT 2 puffs Inhalation Once a day prn Aug, Active Start: 08-17-2015 citalopram 40 mg oral tablet (6 sources) Serotonin Reuptake Inhibitor Start: 04-30-2017 End: 08-07-2023 take 1 tablet by mouth once daily Citalopram (Celexa) 40 mg Tablet Discontinued 40 MG PO Daily April 30, 2017 1:00am August 07, 2023 5:21pm dexlansoprazole 60 mg delayed release oral capsule (6 sources) Proton Pump Inhibitor Start: 04-30-2017 End: 08-07-2023 take 1 capsule by mouth once daily Dexlansoprazole (Dexilant) 60 capsule,biphase delayed releas Discontinued 60 MG PO Daily April 30, 2017 1:00am August 07, 2023 5:22pm diclofenac sodium 0.01 mg/mg topical gel (15 sources) Nonsteroidal Anti-inflammatory Drug Start: 05-12-2024 End: 09-09-2024 apply 2 g topically four times daily Diclofenac Sodium (Aleve (Diclofenac)) 1 % gel Discontinued 2 GM TOPICAL Four times daily 100 90 May 12, 2024 4:07pm September 09, 2024 9:04am Start: 04-23-2024 End: 05-12-2024 apply 2 g topically four times daily Diclofenac Sodium (Aleve (Diclofenac)) 1 % gel Discontinued 2 GM TOPICAL Four times daily 100 90 April 23, 2024 1:00am May 12, 2024 4:08pm Start: 04-11-2021 Pennsaid 2 % 2 pumps Externally Twice a day Mar, Active Start: 04-11-2021 doxycycline hyclate 100 mg oral capsule (3 sources) Tetracycline-class Drug Start: 07-07-2024 End: 09-09-2024 take 1 capsule by mouth twice daily at mealtime Doxycycline Hyclate 100 mg capsule Discontinued 100 MG PO Twice daily 05 04July 07, 2024 1:00am September 09, 2024 9:05am take with food and full glass of water, no dairy products ibuprofen 800 mg oral tablet (6 sources) Nonsteroidal Anti-inflammatory Drug Start: 04-30-2017 End: 08-07-2023 take 1 tablet by mouth every eight hours as needed for pain Ibuprofen 800 mg tablet Discontinued 800 MG PO Q8H as needed for Pain April 30, 2017 1:00am August 07, 2023 5:22pm levoFLOXacin 500 mg oral tablet (3 sources) Quinolone Antimicrobial Start: 04-23-2024 End: 05-12-2024 take 1 tablet by mouth once daily Levofloxacin 500 mg tablet Discontinued 500 MG PO Daily April 23, 2024 1:00am May 12, 2024 3:25pm LORazepam 1 mg oral tablet (6 sources) Benzodiazepine Start: 04-30-2017 End: 08-07-2023 take 1 tablet by mouth at bedtime as needed for anxiety Lorazepam (Ativan) 1 mg Tablet Discontinued 1 MG PO Bedtime as needed for Anxiety April 30, 2017 1:00am August 07, 2023 5:22pm meclizine hydrochloride 25 mg oral tablet (19 sources) Antiemetic Start: 12-07-2022 take 1 tablet by mouth every twelve hours Meclizine HCl 25 MG 1 tablet as needed Orally every 12 hrs Nov, Active Start: 04-30-2017 End: 09-09-2024 take 1 tablet by mouth once daily as needed for dizziness Meclizine 25 mg tablet Discontinued 25 MG PO Daily as needed for prn dizziness May 12, 2024 4:07pm September 09, 2024 9:05am methylPREDNISolone 4 mg oral tablet (3 sources) Corticosteroid Start: 04-14-2024 End: 04-23-2024 take 1 tablet by mouth once Methylprednisolone (Medrol (Sabas)) 4 mg tablets,dose pack Discontinued 0 PO per package directions April 14, 2024 12:00am April 23, 2024 4:50pm PO PER PKG DIR mupirocin 0.02 mg/mg topical ointment (8 sources) RNA Synthetase Inhibitor Antibacterial Start: 02-11-2024 End: 04-23-2024 Mupirocin 2 % ointment Discontinued 1 APPLIC TOPICAL Twice daily February 12, 2024 10:07am April 23, 2024 4:50pm Nirmatrelvir-Ritonavi r (Paxlovid) 300 mg (150 mg x 2)-100 mg tablets,dose pack (3 sources) Start: 05-27-2024 End: 07-07-2024 Nirmatrelvir-Ritonavi r (Paxlovid) 300 mg (150 mg x 2)-100 mg tablets,dose pack Discontinued 0 PO .COMPLEX May 27, 2024 1:00am July 07, 2024 5:30pm take TWO 150 mg tablets of nirmatrelvir with ONE 100 mg tablet of ritonavir twice daily for 5 days PO phentermine hydrochloride 37.5 mg oral tablet (20 sources) Sympathomimetic Amine Anorectic Start: 08-07-2023 End: 04-23-2024 take 1 tablet by mouth once daily before breakfast Phentermine 37.5 mg tablet Discontinued 37.5 MG PO Daily February 11, 2024 3:01pm April 23, 2024 4:50pm 1 tablet before breakfast Orally Once a day Start: 06-13-2023 take 1 tablet by messi once daily before breakfast Adipex-P 37.5 MG 1 tablet before breakfast Orally Once a day for 30 days May, Active Start: 05-16-2023 take 1 tablet by messi once daily before breakfast Adipex-P 37.5 MG 1 tablet before breakfast Orally Once a day for 30 days Apr, Active Start: 04-18-2023 take 1 tablet by messi once daily before breakfast Adipex-P 37.5 MG 1 tablet before breakfast Orally Once a day for 30 days Apr, Active Start: 03-20-2023 take 1 tablet by messi once daily before breakfast Adipex-P 37.5 MG 1 tablet before breakfast Orally Once a day for 30 days Mar, Active predniSONE 20 mg oral tablet (11 sources) Start: 04-23-2024 End: 05-12-2024 Prednisone 20 mg tablet Discontinued 20 MG PO .COMPLEX April 23, 2024 1:00am May 12, 2024 3:25pm 20 mg orally BID for five days, QD for five days; Start: 09-24-2022 predniSONE 20 MG 1 tablet Orally BID for 5 days then Daily for 5 days Sep, Active Start: 06-13-2021 predniSONE 20 MG 1 tablet Orally BID x 5 days, daily x 5 days for 10 days May, Active SUMAtriptan 100 mg oral tablet (20 sources) Serotonin-1b and Serotonin-1d Receptor Agonist Start: 11-26-2016 End: 09-09-2024 Sumatriptan Succinate 100 mg Tablet Discontinued 1 dose pk PO As Directed as needed for Headache April 30, 2017 1:00am September 09, 2024 9:05am tiZANidine 4 mg oral tablet (15 sources) Central alpha-2 Adrenergic Agonist Start: 04-30-2017 End: 08-07-2023 take 1 tablet by mouth at bedtime Tizanidine 4 mg tablet Discontinued 4 MG PO Bedtime April 30, 2017 1:00am August 07, 2023 5:22pm Problems Active Problems Problem Classification Problem Date Documented Date Episodic/Chronic Abdominal hernia (20 sources) Umbilical hernia; Translations: [Umbilical hernia without obstruction or gangrene] Episodic Abdominal pain (20 sources) Epigastric pain; Translations: [Epigastric pain] 07-07-2024 Episodic Adjustment disorders (20 sources) Family tension; Translations: [Reaction to severe stress, unspecified] 02-11-2024 Chronic Anxiety disorders (20 sources) Anxiety disorder; Translations: [Anxiety disorder, unspecified] Chronic Asthma (20 sources) Asthma; Translations: [Other asthma] Onset: 05-01-2021 Resolved: 06-18-2021 Chronic Conditions associated with dizziness or vertigo (12 sources) Dizziness and giddiness; Translations: [Dizziness] Episodic Diabetes mellitus without complication (20 sources) Hyperglycemia; Translations: [Hyperglycemia, unspecified] Onset: 04-11-2021 Resolved: 04-11-2021 Episodic Disorders of lipid metabolism (20 sources) Hyperlipidemia; Translations: [Hyperlipidemia, unspecified] Onset: 04-11-2021 Resolved: 04-11-2021 Chronic Esophageal disorders (20 sources) Gastroesophageal reflux disease; Translations: [Gastro-esophageal reflux disease without esophagitis] 08-08-2023 Chronic Essential hypertension (20 sources) Essential hypertension; Translations: [Essential (primary) hypertension] Onset: 12-04-2021 Resolved: 12-04-2021 Chronic Headache; including migraine (20 sources) Migraine; Translations: [Migraine, unspecified, not intractable, without status migrainosus] Onset: 04-11-2021 Resolved: 04-11-2021 Chronic Headache; including migraine (11 sources) Headache; Translations: [Headache] 02-11-2024 Episodic Malaise and fatigue (20 sources) Fatigue; Translations: [Other fatigue] Onset: 04-11-2021 Resolved: 04-11-2021 Episodic Menopausal disorders (10 sources) Menopausal syndrome; Translations: [Menopausal and female climacteric states] Chronic Mood disorders (20 sources) Major depressive disorder, single episode, unspecified; Translations: [Depression] 04-30-2017 Chronic Other connective tissue disease (10 sources) Trochanteric bursitis; Translations: [Trochanteric bursitis, left hip] Episodic Other connective tissue disease (2 sources) Pain in right hand Onset: 06-13-2021 Resolved: 06-13-2021 Episodic Other infections; including parasitic (6 sources) Post-viral disorder; 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] 07-07-2024 Chronic Other lower respiratory disease (13 sources) Cough; Translations: [Cough] 05-12-2024 Episodic Other nervous system disorders (20 sources) Carpal tunnel syndrome; Translations: [Carpal tunnel syndrome, unspecified upper limb] Chronic Other non-traumatic joint disorders (20 sources) Knee pain; Translations: [Pain in right knee] Episodic Other non-traumatic joint disorders (10 sources) Hip pain; Translations: [Pain in left hip] Episodic Other nutritional; endocrine; and metabolic disorders (18 sources) Body mass index 30+ - obesity; Translations: [Body mass index (BMI) 30.0-30.9, adult] Chronic Other nutritional; endocrine; and metabolic disorders (6 sources) Obesity caused by energy imbalance; Translations: [Other obesity due to excess calories] Chronic Other nutritional; endocrine; and metabolic disorders (4 sources) Other obesity due to excess calories Chronic Other nutritional; endocrine; and metabolic disorders (2 sources) Body mass index (BMI) 32.0-32.9, adult Chronic Other nutritional; endocrine; and metabolic disorders (3 sources) Obese class I; Translations: [Body mass index (BMI) 31.0-31.9, adult] Chronic Other nutritional; endocrine; and metabolic disorders (1 source) Body mass index (BMI) 31.0-31.9, adult Chronic Other nutritional; endocrine; and metabolic disorders (7 sources) Obesity; Translations: [Obesity, unspecified] 09-05-2023 Chronic Other nutritional; endocrine; and metabolic disorders (5 sources) Obesity, unspecified; Translations: [Obesity, unspecified] Chronic Other nutritional; endocrine; and metabolic disorders (2 sources) Body mass index (BMI) 30.0-30.9, adult Chronic Other nutritional; endocrine; and metabolic disorders (6 sources) Overweight in adulthood with body mass index of 25 or more but less than 30; Translations: [Body mass index (BMI) 28.0-28.9, adult] 09-05-2023 Episodic Other nutritional; endocrine; and metabolic disorders (1 source) Body mass index (BMI) 29.0-29.9, adult; Translations: [Body Mass Index 29.0-29.9, adult] 08-08-2023 Episodic Other nutritional; endocrine; and metabolic disorders (1 source) Body mass index (BMI) 28.0-28.9, adult; Translations: [Body Mass Index 28.0-28.9, adult] 09-05-2023 Episodic Other nutritional; endocrine; and metabolic disorders (1 source) Body mass index (BMI) 27.0-27.9, adult; Translations: [Body Mass Index 27.0-27.9, adult] 02-11-2024 Episodic Other screening for suspected conditions (not mental disorders or infectious disease) (15 sources) Encounter for screening for malignant neoplasm of cervix; Translations: [Patient encounter status] Onset: 11-13-2022 Episodic Other skin disorders (4 sources) Skin tag; Translations: [Other hypertrophic disorders of the skin] 11-12-2023 Episodic Other upper respiratory disease (10 sources) Allergic rhinitis; Translations: [Allergic rhinitis, unspecified] Chronic Other upper respiratory disease (15 sources) Seasonal allergy; Translations: [Other seasonal allergic rhinitis] Chronic Other upper respiratory disease (2 sources) Other seasonal allergic rhinitis Chronic Other upper respiratory infections (18 sources) Sinusitis; Translations: [Chronic sinusitis, unspecified] Chronic Other upper respiratory infections (10 sources) Acute sinusitis; Translations: [Acute sinusitis, unspecified] Episodic Residual codes; unclassified (20 sources) Insomnia; Translations: [Insomnia, unspecified] Episodic Residual codes; unclassified (10 sources) Dyssomnia; Translations: [Sleep disorder, unspecified] Episodic Residual codes; unclassified (4 sources) Pain; Translations: [Pain, unspecified] 11-12-2023 Episodic Viral infection (6 sources) Disease caused by 2019-nCoV; Translations: [COVID-19] 05-27-2024 Episodic Past or Other Problems Problem Classification Problem Date Documented Da te Episodic/Chronic Neoplasms of unspecified nature or uncertain behavior (2 sources) Neoplasm of uncertain behavior, unspecified; Translations: [Neoplasm of uncertain behavior of skin] Onset: 12-13-2023 Episodic Other connective tissue disease (2 sources) Pain in right finger(s); Translations: [Pain of finger of right hand M79.644] Onset: 04-11-2021 Resolved: 05-01-2021 Episodic Other lower respiratory disease (1 source) Cough Onset: 06-13-2021 Resolved: 06-13-2021 Episodic Other non-traumatic joint disorders (5 sources) Pain in left knee; Translations: [Left knee pain] Onset: 04-13-2024 04-10-2024 Episodic Residual codes; unclassified (1 source) Localized edema Onset: 06-13-2021 Resolved: 06-13-2021 Episodic Unclassified (1 source) Lumbar back pain M54.50 Results Test Name Value Interpretation Reference Range Facility Alanine aminotransferase [En zymatic activity/volume] in Serum or PlasmaOrdered By: Zay Arambula on 09-09-2024 ALT [Catalytic activity/Vol] Alanine aminotransferase [Enzymatic activity/volume] in Serum or Plasma 7-52 [facility] Albumin [Mass/volume] in Ser um or Plasma by Bromocresol green (BCG) dye binding methoOrdered By: Zay Arambula on 09-09-2024 Albumin BCG dye [Mass/Vol] Albumin [Mass/volume] in Serum or Plasma by Bromocresol green (BCG) dye binding metho 3.5-5.7 [facility] Alkaline phosphatase [Enzyma tic activity/volume] in Serum or PlasmaOrdered By: Zay Arambula on 09-09-2024 ALP [Catalytic activity/Vol] Alkaline phosphatase [Enzymatic activity/volume] in Serum or Plasma 34-104 [facility] Aspartate aminotransferase [ Enzymatic activity/volume] in Serum or PlasmaOrdered By: Zay Arambula on 09-09-2024 AST [Catalytic activity/Vol] Aspartate aminotransferase [Enzymatic activity/volume] in Serum or Plasma 13-39 [facility] Basophils Auto (Bld) [#/Vol] Ordered By: Zay Arambula on 09-09-2024 Basophils (Bld) [#/Vol] Automated basoph il count 0.0-0.2 [facility] Basophils/100 WBC Auto (Bld) Ordered By: Zay Arambula on 09-09-2024 Basophils/100 WBC (Bld) Automated basophil % . [facility] Bilirubin.total [Mass/volume ] in Serum or PlasmaOrdered By: Zay Arambula on 09-09-2024 Bilirubin [Mass/Vol] Bilirubin.total [Mass/volume] in Serum or Plasma 0.3-1.0 [facility] CMP with reflex to A1Con Albumin [Mass/Vol] 4.7 g/dL Normal 3.5-5.7 [facility] Comment on above: Performed By: #### C BC, EBS A1C, CMP wRFX A1C, LIPID, TSH3 #### [facility] [address] [place] [address] [place] Albumin/Globulin [Mass ratio] 1.9 {ratio} Normal [facility] Comment on above: Performed By: #### C BC, EBS A1C, CMP wRFX A1C, LIPID, TSH3 #### [facility] [address] [place] [address] [place] ALP [Catalytic activity/Vol] 62 U/L Normal 34-104 [facility] Comment on above: Performed By: #### C BC, EBS A1C, CMP wRFX A1C, LIPID, TSH3 #### [facility] [address] [place] [address] [place] ALT [Catalytic activity/Vol] 40 U/L Normal 7-52 [facility] Comment on above: Performed By: #### C BC, EBS A1C, CMP wRFX A1C, LIPID, TSH3 #### [facility] [address] [place] [id number] [place] Anion gap [Moles/Vol] 14.1 mmol/L Normal 6.0-15.0 [facility] Comment on above: Performed By: #### C BC, EBS A1C, CMP wRFX A1C, LIPID, TSH3 #### [address] AST [Catalytic activity/Vol] 31 U/L Normal 13-39 [facility] Comment on above: Performed By: #### C BC, EBS A1C, CMP wRFX A1C, LIPID, TSH3 #### [address] Bilirubin [Mass/Vol] 0.6 mg/dL Normal 0.3-1.0 [facility] Comment on above: Performed By: #### C BC, EBS A1C, CMP wRFX A1C, LIPID, TSH3 #### [address] Calcium [Mass/Vol] 10.0 mg/dL Normal 8.6-10.3 [facility] Comment on above: Performed By: #### C BC, EBS A1C, CMP wRFX A1C, LIPID, TSH3 #### [place] [address] [place] Chloride [Moles/Vol] 104 mmol/L Normal 98-107 [facility] Comment on above: Performed By: #### C BC, EBS A1C, CMP wRFX A1C, LIPID, TSH3 #### [place] [address] [place] CO2 [Moles/Vol] 29.4 mmol/L Normal 21.0-31.0 [facility] Comment on above: Performed By: #### C BC, EBS A1C, CMP wRFX A1C, LIPID, TSH3 #### [place] [address] [place] Creatinine [Mass/Vol] 0.74 mg/dL Normal 0.60-1.20 [facility] Comment on above: Performed By: #### C BC, EBS A1C, CMP wRFX A1C, LIPID, TSH3 #### [facility] [address] [place] [address] [place] GFR/1.73 sq M.predicted MDRD (S/P/Bld) [Vol rate/Area] mL/min/{1.73_m2} Normal [facility] Comment on above: Performed By: #### C BC, EBS A1C, CMP wRFX A1C, LIPID, TSH3 #### [address] Globulin (S) [Mass/Vol] 2.5 g/dL Normal T he [facility] Comment on above: Performed By: #### C BC, EBS A1C, CMP wRFX A1C, LIPID, TSH3 #### [address] Glucose [Mass/Vol] 104 mg/dL High 70-100 [facility] Comment on above: Result Comment: ADA recommended reference range Performed By: #### C BC, EBS A1C, CMP wRFX A1C, LIPID, TSH3 #### [address] Potassium [Moles/Vol] 4.5 mmol/L Normal 3.5-5.1 [facility] Comment on above: Performed By: #### C BC, EBS A1C, CMP wRFX A1C, LIPID, TSH3 #### [address] Protein [Mass/Vol] 7.2 g/dL Normal 6.4-8.9 [facility] Comment on above: Performed By: #### C BC, EBS A1C, CMP wRFX A1C, LIPID, TSH3 #### [address] Sodium [Moles/Vol] 143 mmol/L Normal 136-145 [facility] Comment on above: Performed By: #### C BC, EBS A1C, CMP wRFX A1C, LIPID, TSH3 #### [address] Urea nitrogen [Mass/Vol] 12 mg/dL Normal 7-25 [facility] Comment on above: Performed By: #### C BC, EBS A1C, CMP wRFX A1C, LIPID, TSH3 #### [facility] [address] [place] [id number] [facility] Calcium [Mass/volume] in Ser um or PlasmaOrdered By: Zay Arambula on 09-09-2024 Calcium [Mass/Vol] Calcium [Mass/volume ] in Serum or Plasma 8.6-10.3 [facility] Carbon dioxide, total [Moles /volume] in Serum or PlasmaOrdered By: Zay Arambula on 09-09-2024 CO2 [Moles/Vol] Carbon dioxide, tota l [Moles/volume] in Serum or Plasma 21.0-31.0 [facility] Chloride [Moles/volume] in S benja or PlasmaOrdered By: Zay Arambula on 09-09-2024 Chloride [Moles/Vol] Chloride [Moles/volume] in Serum or Plasma 98-107 [facility] Cholesterol [Mass/volume] in Serum or PlasmaOrdered By: Zay Arambula on 09-09-2024 Cholesterol [Mass/Vol] Cholesterol [Mass/volume] in Serum or Plasma 140-200 [facility] Comment on above: Chol less than 200 m g/dl low riskChol 201-239 mg/dl borderline riskChol 240 mg/dl and greater high risk Cholesterol in HDL [Mass/vol ume] in Serum or PlasmaOrdered By: Zay Arambula on 09-09-2024 Cholesterol in HDL [Mass/Vol] Serum or plasma high density lipoprotein (HDL) cholesterol measurement 23-92 [facility] Comment on above: HDL CHOL ATP-III CLA SSIFICATION Cardiovascular RiskHDL > or equal to 60 mg/dL LOWHDL < 40 mg/dL HIGH Cholesterol in LDL Calc [Mas s/Vol]Ordered By: Zay Arambula on 09-09-2024 Cholesterol in LDL [Mass/Vol] Cholesterol in LDL [Mass/volume] in Serum or Plasma by calculation 0-100 [facility] Comment on above: LDL ATP III CLASSIFI CATIONLDL less than 100 mg/dL OptimalLDL 100-129 mg/dL Near or above optimalLDL 130-159 mg/dL Borderline highLDL 160-189 mg/dL HighLDL greater than 189 mg/dL Very high Cholesterol in VLDL Calc [Ma ss/Vol]Ordered By: Zay Arambula on 09-09-2024 Cholesterol in VLDL [Mass/Vol] Cholesterol in VLDL [Mass/volume] in Serum or Plasma by calculation [facility] Complete Blood Count Auto Di ffon 09-09-2024 Basophils (Bld) [#/Vol] 0.1 10*3/uL Normal 0.0-0.2 [facility] Comment on above: Result Comment: PERF ORMED BY: [place] [address] PATHOLOGIST SCOW DERRICK OPERATOR SPIKE DAVALOS M.D. Performed By: #### C BC, EBS A1C, CMP wRFX A1C, LIPID, TSH3 #### [address] Basophils/100 WBC (Bld) 0.9 % Normal . [facility] Comment on above: Performed By: #### C BC, EBS A1C, CMP wRFX A1C, LIPID, TSH3 #### [place] [address] [place] Eosinophils (Bld) [#/Vol] 0.1 10*3/uL Normal 0.0-0.45 [facility] Comment on above: Performed By: #### C BC, EBS A1C, CMP wRFX A1C, LIPID, TSH3 #### [address] Eosinophils/100 WBC (Bld) 1.2 % Normal . [facility] Comment on above: Performed By: #### C BC, EBS A1C, CMP wRFX A1C, LIPID, TSH3 #### [address] Erythrocyte distribution width (RBC) [Ratio] 12.7 % Normal 11.9-15.3 [facility] Comment on above: Performed By: #### C BC, EBS A1C, CMP wRFX A1C, LIPID, TSH3 #### [address] Hematocrit (Bld) [Volume fraction] 42.4 % Normal 34.0-46.4 [facility] Comment on above: Performed By: #### C BC, EBS A1C, CMP wRFX A1C, LIPID, TSH3 #### [address] Hemoglobin (Bld) [Mass/Vol] 14.2 g/dL Normal 11.8-15.4 [facility] Comment on above: Performed By: #### C BC, EBS A1C, CMP wRFX A1C, LIPID, TSH3 #### [address] Lymphocytes (Bld) [#/Vol] 1.3 10*3/uL Normal 1.00-4.8 [facility] Comment on above: Performed By: #### C BC, EBS A1C, CMP wRFX A1C, LIPID, TSH3 #### [address] Lymphocytes/100 WBC (Bld) 18.2 % Normal . [facility] Comment on above: Performed By: #### C BC, EBS A1C, CMP wRFX A1C, LIPID, TSH3 #### [address] MCH (RBC) [Entitic mass] 30.2 pg Normal 24.7-34.3 [facility] Comment on above: Performed By: #### C BC, EBS A1C, CMP wRFX A1C, LIPID, TSH3 #### [address] MCV (RBC) [Entitic vol] 89.9 fL Normal 80-100 [facility] Comment on above: Performed By: #### C BC, EBS A1C, CMP wRFX A1C, LIPID, TSH3 #### [address] Mean Corpuscular HGB Conc 33.6 g/dL Normal 32.0-35.0 [facility] Comment on above: Performed By: #### C BC, EBS A1C, CMP wRFX A1C, LIPID, TSH3 #### [address] Monocytes (Bld) [#/Vol] 0.6 10*3/uL Normal 0.0-0.8 [facility] Comment on above: Performed By: #### C BC, EBS A1C, CMP wRFX A1C, LIPID, TSH3 #### [facility] [address] [place] [address] [place] Monocytes/100 WBC (Bld) 8.2 % Normal . [facility] Comment on above: Performed By: #### C BC, EBS A1C, CMP wRFX A1C, LIPID, TSH3 #### [place] [address] [place] Neutrophils (Bld) [#/Vol] 5.3 10*3/uL Normal 1.8-7.7 [facility] Comment on above: Performed By: #### C BC, EBS A1C, CMP wRFX A1C, LIPID, TSH3 #### [place] [address] [place] Neutrophils/100 WBC (Bld) 71.5 % Normal . [facility] Comment on above: Performed By: #### C BC, EBS A1C, CMP wRFX A1C, LIPID, TSH3 #### [place] [address] [place] NRBC% 0.1 /100{WBC} Normal 0-0.5 [facility] Comment on above: Performed By: #### C BC, EBS A1C, CMP wRFX A1C, LIPID, TSH3 #### [place] [address] [place] Platelet mean volume (Bld) [Entitic vol] 8.4 fL Normal 6.3-10.7 [facility] Comment on above: Performed By: #### C BC, EBS A1C, CMP wRFX A1C, LIPID, TSH3 #### [place] [address] [place] Platelets (Bld) [#/Vol] 287 10*3/uL Normal 150-450 [facility] Comment on above: Performed By: #### C BC, EBS A1C, CMP wRFX A1C, LIPID, TSH3 #### [place] [address] [place] RBC (Bld) [#/Vol] 4.72 10*6/uL Normal 3.60-5.00 [facility] Comment on above: Performed By: #### C BC, EBS A1C, CMP wRFX A1C, LIPID, TSH3 #### [address] WBC (Bld) [#/Vol] 7.4 10*3/uL Normal 3.8-11.6 [facility] Comment on above: Performed By: #### C BC, EBS A1C, CMP wRFX A1C, LIPID, TSH3 #### [address] Creatinine [Mass/volume] in Serum or PlasmaOrdered By: Zay Arambula on 09-09-2024 Creatinine [Mass/Vol] Creatinine [Mass/volume] in Serum or Plasma 0.60-1.20 [facility] EBS A1C with Estimated Ave G luon 09-09-2024 Glucose [Mass/Vol] 111 mg/dL Normal [facility] Comment on above: Result Comment: PERF ORMED BY: [place] [address] PATHOLOGIST SCOW DERRICK OPERATOR SPIKE DAVALOS M.D. Performed By: #### C BC, EBS A1C, CMP wRFX A1C, LIPID, TSH3 #### [address] HbA1c (Bld) [Mass fraction] 5.5 % Normal 4.3-5.6 [facility] Comment on above: Result Comment: Incr eased risk for diabetes: 5.7 - 6.4 diabetes: >6.4 glycemic control for adults with diabetes: <7.0 Performed By: #### C BC, EBS A1C, CMP wRFX A1C, LIPID, TSH3 #### [place] [address] [place] Eosinophils Auto (Bld) [#/Vo l]Ordered By: Zay Arambula on 09-09-2024 Eosinophils (Bld) [#/Vol] Automated eosinophil count 0.0-0.45 [facility] Eosinophils/100 WBC Auto (Bl d)Ordered By: Zay Arambula on 09-09-2024 Eosinophils/100 WBC (Bld) Automated eosinophil % . [facility] Erythrocyte distribution wid th Auto (RBC) [Ratio]Ordered By: Zay Arambula on 09-09-2024 Erythrocyte distribution width (RBC) [Ratio] Erythrocyte distribution width [Ratio] by Automated count 11.9-15.3 [facility] FPG ECG *PCP OFFICE ONLY*on 09-09-2024 FPG ECG *PCP OFFICE ONLY* [facility] [place] [address] Electrocardiograph Report Signed Patient: Kerry Lopez MR#: [id number] : 1965 Acct:[id number] Age/Sex: 58 / F ADM Date: 09/09/24 Loc: EKGCAST Room: Type: [facility] Attending Dr: Zay Arambula DO Ordering Provider: Zay Arambula DO Date of Service: 09/09/24 ECG/FPG ECG *PCP OFFICE ONLY*: Z00.00 - Encounter for general adult medical examination ... Copies to: Test Reason : Blood Pressure : */* mmHG Vent. Rate : 78 BPM Atrial Rate : 78 BPM P-R Int : 118 ms QRS Dur : 70 ms QT Int : 390 ms P-R-T Axes : 72 50 45 degrees QTcB Int : 444 ms Normal sinus rhythm Normal ECG No previous ECGs available Confirmed by Osman Lance ([id number]) on 09/15/2024 5:16:12 AM Referred By: Electronically Signed By: Osman Lance Transcribed By: MUS Signed By Osman Lance MD 09/15/24 0516 Normal [facility] Globulin Calc (S) [Mass/Vol] Ordered By: aZy Arambula on 09-09-2024 Globulin (S) [Mass/Vol] Serum globulin measurement by calculation (mass/volume) [facility] Glucose [Mass/volume] in Ser um or PlasmaOrdered By: Zay Arambula on 09-09-2024 Glucose [Mass/Vol] Glucose [Mass/volume ] in Serum or Plasma High 70-100 [facility] Comment on above: ADA recommended refe rence range Hematocrit Auto (Bld) [Volum e fraction]Ordered By: Zay Arambula on 09-09-2024 Hematocrit (Bld) [Volume fraction] Hematocrit [Volume Fraction] of Blood by Automated count 34.0-46.4 [facility] Hemoglobin [Mass/volume] in BloodOrdered By: Zay Arambula on 09-09-2024 Hemoglobin (Bld) [Mass/Vol] Hemoglobin [Mass/volume] in Blood 11.8-15.4 [facility] Leukocytes [#/volume] correc mike for nucleated erythrocytes in Blood by Automated counOrdered By: Zay Arambula on 09-09-2024 WBC corrected for nucl RBC Auto (Bld) [#/Vol] Leukocytes [#/volume] corrected for nucleated erythrocytes in Blood by Automated coun 3.8-11.6 [facility] Lipid Panelon 09-09-2024 Cholesterol [Mass/Vol] 193 mg/dL Normal 140-200 [facility] Comment on above: Result Comment: Chol less than 200 mg/dl low risk Chol 201-239 mg/dl borderline risk Chol 240 mg/dl and greater high risk Performed By: #### C BC, EBS A1C, CMP wRFX A1C, LIPID, TSH3 #### [facility] [address] [place] [id number] [place] Cholesterol in HDL [Mass/Vol] 86 mg/dL Normal 23-92 [facility] Comment on above: Result Comment: HDL CHOL ATP-III CLASSIFICATION Cardiovascular Risk HDL > or equal to 60 mg/dL LOW HDL < 40 mg/dL HIGH Performed By: #### C BC, EBS A1C, CMP wRFX A1C, LIPID, TSH3 #### [facility] [address] [place] [address] [place] Cholesterol.total/Heide sterol in HDL [Mass ratio] 2.2 {ratio} Normal <5.0 [facility] Comment on above: Performed By: #### C BC, EBS A1C, CMP wRFX A1C, LIPID, TSH3 #### [facility] [address] [place] [address] [place] LDL Cholesterol,Calculated 94 mg/dL Normal 0-100 [facility] Comment on above: Result Comment: LDL ATP III CLASSIFICATION LDL less than 100 mg/dL Optimal LDL 100-129 mg/dL Near or above optimal LDL 130-159 mg/dL Borderline high LDL 160-189 mg/dL High LDL greater than 189 mg/dL Very high Performed By: #### C BC, EBS A1C, CMP wRFX A1C, LIPID, TSH3 #### [facility] [address] Triglyceride w/Reflex 64 mg/dL Normal 0-149 [facility] Comment on above: Result Comment: TRIG ATP III CLASSIFICATION TRIG less than 150 mg/dL Normal TRIG 150-199 mg/dL Borderline high TRIG 200-500 mg/dL High TRIG greater than 500 mg/dL Very high Standard traceable to the Center for Disease Conrtrol and Prevention (CDC) test method. Performed By: #### C BC, EBS A1C, CMP wRFX A1C, LIPID, TSH3 #### [facility] [address] VLDL CHOLESTEROL 12 mg/dL Normal [facility] Comment on above: Performed By: #### C BC, EBS A1C, CMP wRFX A1C, LIPID, TSH3 #### [facility] [address] Lymphocytes Auto (Bld) [#/Vo l]Ordered By: Zay Arambula on 09-09-2024 Lymphocytes (Bld) [#/Vol] Lymphocytes [#/volume] in Blood by Automated count 1.00-4.8 [facility] Lymphocytes/100 WBC Auto (Bl d)Ordered By: Zay Arambula on 09-09-2024 Lymphocytes/100 WBC (Bld) Lymphocytes/100 leukocytes in Blood by Automated count . [facility] MCH Auto (RBC) [Entitic mass ]Ordered By: Zay Arambula on 09-09-2024 MCH (RBC) [Entitic mass] MCH [Entitic mass] by Automated count 24.7-34.3 [facility] MCHC Auto (RBC) [Mass/Vol]Or dered By: Zay Arambula on 09-09-2024 MCHC (RBC) [Mass/Vol] MCHC [Mass/volume] by Automated count 32.0-35.0 [facility] MCV Auto (RBC) [Entitic vol] Ordered By: Zay Arambula on 09-09-2024 MCV (RBC) [Entitic vol] MCV [Entitic vol ume] by Automated count 80-100 [facility] Monocytes Auto (Bld) [#/Vol] Ordered By: Zay Arambula on 09-09-2024 Monocytes (Bld) [#/Vol] Automated blood monocyte count 0.0-0.8 [facility] Monocytes/100 WBC Auto (Bld) Ordered By: Zay Arambula on 09-09-2024 Monocytes/100 WBC (Bld) Automated monocyte % . [facility] Neutrophils Auto (Bld) [#/Vo l]Ordered By: Zay Arambula on 09-09-2024 Neutrophils (Bld) [#/Vol] Neutrophils [#/volume] in Blood by Automated count 1.8-7.7 [facility] Neutrophils/100 WBC Auto (Bl d)Ordered By: Zay Arambula on 09-09-2024 Neutrophils/100 WBC (Bld) Automated neutrophil % . [facility] No Panel InformationOrdered By: Zay Arambula on 09-09-2024 Estimated GFR (CKD-EPI) > 60.0 mL/Min [facility] Creatinine Clearance (Chem N/A [facility] Nucleated erythrocytes [Pres ence] in Blood by Automated countOrdered By: Zay Arambula on 09-09-2024 Nucleated RBC Auto Ql (Bld) Nucleated erythrocytes [Presence] in Blood by Automated count 0-0.5 [facility] Platelet mean volume Auto (B ld) [Entitic vol]Ordered By: Zay Arambula on 09-09-2024 Platelet mean volume (Bld) [Entitic vol] Platelet mean volume [Entitic volume] in Blood by Automated count 6.3-10.7 [facility] Platelets Auto (Bld) [#/Vol] Ordered By: Zay Arambula on 09-09-2024 Platelets (Bld) [#/Vol] Platelets [#/vol ume] in Blood by Automated count 150-450 [facility] Potassium [Moles/volume] in Serum or PlasmaOrdered By: Zay Arambula on 09-09-2024 Potassium [Moles/Vol] Potassium [Moles/volume] in Serum or Plasma 3.5-5.1 [facility] Protein [Mass/volume] in Ser um or PlasmaOrdered By: Zay Arambula on 09-09-2024 Protein [Mass/Vol] Protein [Mass/volume ] in Serum or Plasma 6.4-8.9 [facility] RBC Auto (Bld) [#/Vol]Ordere d By: Zay Arambula on 09-09-2024 RBC (Bld) [#/Vol] Erythrocytes [#/volume] in Blood by Automated count 3.60-5.00 [facility] Serum or plasma albumin/glob ulin mass ratioOrdered By: Zay Arambula on 09-09-2024 Albumin/Globulin [Mass ratio] Serum or plasma albumin/globulin mass ratio [facility] Serum or plasma anion gap de terminationOrdered By: Zay Arambula on 09-09-2024 Anion gap [Moles/Vol] Serum or plasma an ion gap determination 6.0-15.0 [facility] Serum or plasma total choles terol/high density lipoprotein (HDL) cholesterol mass ratOrdered By: Zay Arambula on 09-09-2024 Cholesterol.total/Heide sterol in HDL [Mass ratio] Serum or plasma total cholesterol/high density lipoprotein (HDL) cholesterol mass rat <5.0 [facility] Sodium [Moles/volume] in Ser um or PlasmaOrdered By: Zay Arambula on 09-09-2024 Sodium [Moles/Vol] Sodium [Moles/volume ] in Serum or Plasma 136-145 [facility] Thyroid Stimulating Hormoneo n 09-09-2024 TSH Qn 0.88 m[IU]/L Normal 0.45-5.33 [facility] Comment on above: Result Comment: PERF ORMED BY: [place] [address] PATHOLOGIST SCOW DERRICK OPERATOR SPIKE DAVALOS M.D. Performed By: #### C BC, EBS A1C, CMP wRFX A1C, LIPID, TSH3 #### [place] [address] [place] Thyrotropin [Units/volume] i n Serum or PlasmaOrdered By: Zay Arambula on 09-09-2024 TSH Qn Thyrotropin [Units/volume] in Serum or Plasma 0.45-5.33 [facility] Triglyceride [Mass/volume] i n Serum or PlasmaOrdered By: Zay Arambula on 09-09-2024 Triglyceride [Mass/Vol] Triglyceride [Mass/volume] in Serum or Plasma 0-149 [facility] Comment on above: TRIG ATP III CLASSIF ICATIONTRIG less than 150 mg/dL NormalTRIG 150-199 mg/dL Borderline highTRIG 200-500 mg/dL High TRIG greater than 500 mg/dL Very highStandard traceable to the Center for Disease Conrtrol and Prevention (CDC) test method. Urea nitrogen [Mass/volume] in Serum or PlasmaOrdered By: Zay Arambula on 09-09-2024 Urea nitrogen [Mass/Vol] Urea nitrogen [Mass/volume] in Serum or Plasma 01-08 [facility] WBC Auto (Bld) [#/Vol]Ordere d By: Zay Arambula on 09-09-2024 WBC (Bld) [#/Vol] Leukocytes [#/volume ] in Blood by Automated count 3.8-11.6 [facility] Laboratory - Chemistry and C hemistry - challengeon 07-07-2024 Bilirubin Ql (U) Negative [facility] Glucose (U) [Mass/Vol] Negative [facility] Ketones Ql (U) Negative [facility] pH (U) 6.5 [pH] [facility] Specific gravity (U) [Rel density] 1.010 [facility] Urobilinogen (U) [Mass/Vol] 0.2 mg/dL [facility] Laboratory - Specimen inform ationon 07-07-2024 Appearance (U) clear [facility] Color (U) yellow [facility] Laboratory - Urinalysison Leukocyte esterase Test strip Ql (U) Negative [facility] Nitrite Ql (U) Negative [facility] Protein Ql (U) Negative [facility] No Panel Informationon 07-07 Urine Occult Blood Negative [facility] XR knee LT 4V*on 04-13-2024 XR knee LT 4V* [facility] [address] [address] XRay Report Signed Patient: Kerry Lopez MR#: [id number] : 1965 Acct:[id number] Age/Sex: 58 / F ADM Date: 04/13/24 Loc: XD Room: Type: [facility] Attending Dr: Zya Arambula DO Copies to: Zay Arambula DO Ordering Provider: Zay Arambula DO Date of Service: 04/13/24 XR/XR knee LT 4V*: M25.562 - Pain in left knee LEFT KNEE - 4 views COMPARISON: 07/18/2018 CLINICAL DATA: Left knee pain for the past month. No specific injury. AP, lateral and both oblique views were obtained. There is no acute fracture or dislocation. There is no disproportionate joint space narrowing. There is minor marginal spurring at the medial tibiofemoral compartment. There is subchondral lucency at the posterior patella that could be chondromalacia. A trace amount of joint fluid is seen. There is no soft tissue swelling. 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 NO ACUTE BONY FINDINGS. Impression dictated by: Skye Wheatley M.D.04/13/2024 10:49 AM Dictation Location: [place] [address] Transcribed By: [facility] 04/13/24 1049 Dictated By: Skye Wheatley MD 04/13/24 104 Signed By: 04/13/24 1049 Normal [facility] Influenza virus B Ag [Presen ce] in Upper respiratory specimen by Rapid immunoassayon 02-11-2024 FLUBV Ag IA.rapid Ql (Nph) Negative [facility] No Panel Informationon 02-10 Influenza Type A (Rapid) Negative [facility] POC SARS CoV-2 Antigen Negative [facility] No Panel InformationOrdered By: Zay Arambula on 02-11-2024 Quick Strep (POC) [facility] RSV (POC) [facility] Greyson 12-13-2023 L Specimen: [id number] Received: 12/16/23-0753 Status: SOUT Req Num: [id number] Spec Type: Surgical Subm Dr: Zay Arambula DO Tissues: A Skin-Other than Cyst, tag, debridement or plastic repair (LT AXILLA) Procedures: HE, Gross/Micro L4 Age/ Patient Sex Location Account Attending Physician Kerry Lopez 58/F [id number] Zay Arambula DO SPEC NUM: [id number] RECD: 12/16/23 STATUS: JAG CAROL NUM: [id number] GIOVANNA: 12/13/23- [facility] DR: Zay Arambula DO ENTERED: 12/16/[address] [facility] [address]: SPEC TYPE: Surgical DEPT: S ORDERED: HE, Gross/Micro L4 ORDERED: ASHLEE Gross/Micro L4 Supplemental Report Addendum 1 Entered: 12/26/23 This case was sent to [facility] for consultation. 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 Please see attached consultation report from [facility] for diagnostic details. Addendum Signed (signature on file) Spike Davalos MD 12/26/231953 -------- Pathological Diagnosis Preliminary report Skin lesion, left axilla, biopsy: Reactive keratosis. Pending consultation. -------- Specimen: [id number] Received: 12/16/23 Status: JAG Matthew Num: [id number] Spec Type: Surgical Subm Dr: Zay Arambula DO Tissues: A Skin-Other than Cyst, tag, debridement or plastic repair (LT AXILLA) Procedures: Rebecca ROSADO -------- Patient: Kerry Lopez [id number] (Continued) -------- Specimen: [id number] Received: 12/16/23 (Continued) Signed (signature on file) Spike Davalos MD 12/18/23 1537 -------- Specimen: [id number] Received: 12/16/23 Status: JAG Matthew Num: [id number] Spec Type: Surgical Subm Dr: Zay Arambula DO Tissues: A Skin-Other than Cyst, tag, debridement or plastic repair (LT AXILLA) Procedures: Rebecca ROSADO -------- Patient: Kerry Lopez [id number] (Continued) -------- Specimen: [id number] Received: 12/16/23 (Continued) Clinical Information Neoplasm of uncertain behavior of skin/suspicious lesion Gross Description Received in formalin labeled with the patient's name, date of and left axilla 1.1 cm is a 0.6 x 0.4 x 0.3 cm raised thakkar-white skin shave biopsy. The specimen is inked black along its resection margin, bisected and entirely submitted in A1. CPT Codes 45519 -------- -------- Specimen: [id number] Received: 12/16/23 Status: JAG Matthew Num: [id number] Spec Type: Surgical Subm Dr: Zay Arambula, Tissues: A Skin-Other than Cyst, tag, debridement or plastic repair (LT AXILLA) Procedures: HE, Gross/Micro L4 -------- Patient: Kerry Lopez [id number] (Continued) -------- Signed (signature on file) Spike Davalos MD 12/18/23 1537 Normal [facility] Alanine aminotransferase [En zymatic activity/volume] in Serum or PlasmaOrdered By: Zay Arambula on 09-09-2023 ALT [Catalytic activity/Vol] 27 U/L 7-52 [facility] Albumin [Mass/volume] in Ser um or Plasma by Bromocresol green (BCG) dye binding methoOrdered By: Zay Arambula on 09-09-2023 Albumin BCG dye [Mass/Vol] 4.4 g/dL 3.5-5.7 [facility] Alkaline phosphatase [Enzyma tic activity/volume] in Serum or PlasmaOrdered By: Zya Arambula on 09-09-2023 ALP [Catalytic activity/Vol] 59 U/L 34-104 [facility] Aspartate aminotransferase [ Enzymatic activity/volume] in Serum or PlasmaOrdered By: Zay Arambula on 09-09-2023 AST [Catalytic activity/Vol] 22 U/L 13-39 [facility] Basophils Auto (Bld) [#/Vol] Ordered By: Zay Arambula on 09-09-2023 Basophils (Bld) [#/Vol] 0.1 10*3/uL 0.0-0.2 [facility] Basophils/100 WBC Auto (Bld) Ordered By: Zay Arambula on 09-09-2023 Basophils/100 WBC (Bld) 0.9 % . [facility] Bilirubin.total [Mass/volume ] in Serum or PlasmaOrdered By: Zay Arambula on 09-09-2023 Bilirubin [Mass/Vol] 0.6 mg/dL 0.3-1.0 [facility] Calcium [Mass/volume] in Ser um or PlasmaOrdered By: Zay Arambula on 09-09-2023 Calcium [Mass/Vol] 9.4 mg/dL 8.6-10.3 [facility] Carbon dioxide, total [Moles /volume] in Serum or PlasmaOrdered By: Zay Arambula on 09-09-2023 CO2 [Moles/Vol] 28.2 mmol/L 21.0-31.0 [facility] Chloride [Moles/volume] in S benja or PlasmaOrdered By: Zay Arambula on 09-09-2023 Chloride [Moles/Vol] 107 mmol/L 98-107 [facility] Cholesterol [Mass/volume] in Serum or PlasmaOrdered By: Zay Arambula on 09-09-2023 Cholesterol [Mass/Vol] 176 mg/dL 140-200 [facility] Comment on above: Chol less than 200 m g/dl low riskChol 201-239 mg/dl borderline riskChol 240 mg/dl and greater high risk Cholesterol in LDL Calc [Mas s/Vol]Ordered By: Zay Arambula on 09-09-2023 Cholesterol in LDL [Mass/Vol] 81 mg/dL 0-100 [facility] Comment on above: LDL ATP III CLASSIFI CATIONLDL less than 100 mg/dL OptimalLDL 100-129 mg/dL Near or above optimalLDL 130-159 mg/dL Borderline highLDL 160-189 mg/dL HighLDL greater than 189 mg/dL Very high Cholesterol in VLDL Calc [Ma ss/Vol]Ordered By: Zay Arambula on 09-09-2023 Cholesterol in VLDL [Mass/Vol] 15 mg/dL [facility] Creatinine [Mass/volume] in Serum or PlasmaOrdered By: Zay Arambula on 09-09-2023 Creatinine [Mass/Vol] 0.75 mg/dL 0.60-1.20 [facility] Eosinophils Auto (Bld) [#/Vo l]Ordered By: Zay Arambula on 09-09-2023 Eosinophils (Bld) [#/Vol] 0.1 10*3/uL 0.0-0.45 [facility] Eosinophils/100 WBC Auto (Bl d)Ordered By: Zay Arambula on 09-09-2023 Eosinophils/100 WBC (Bld) 1.2 % . [facility] Erythrocyte distribution wid th Auto (RBC) [Ratio]Ordered By: Zay Arambula on 09-09-2023 Erythrocyte distribution width (RBC) [Ratio] 13.2 % 11.9-15.3 [facility] Globulin Calc (S) [Mass/Vol] Ordered By: Zay Arambula on 09-09-2023 Globulin (S) [Mass/Vol] 2.2 g/dL [facility] Glucose [Mass/volume] in Ser um or PlasmaOrdered By: Zay Arambula on 09-09-2023 Glucose [Mass/Vol] 104 mg/dL 70-100 [facility] Comment on above: ADA recommended refe rence rangeRandom Glucose Reference Range is dependent on time and content of last meal. Glucose of more than 200 mg/dL in a nonstressed, ambulatory subject supports the diagnosis of Diabetes Mellitus. Glucose mean value [Mass/vol ume] in Blood Estimated from glycated hemoglobinOrdered By: Zay Arambula on 09-09-2023 Average glucose Estimated from glycated hemoglobin (Bld) [Mass/Vol] 111 mg/dL [facility] Hematocrit Auto (Bld) [Volum e fraction]Ordered By: Zay Arambula on 09-09-2023 Hematocrit (Bld) [Volume fraction] 42.2 % 34.0-46.4 [facility] Hemoglobin A1c percentageOrd ered By: Zay Arambula on 09-09-2023 HbA1c (Bld) [Mass fraction] 5.5 % 4.3-5.6 [facility] Comment on above: Increased risk for d iabetes: 5.7 - 6.4diabetes: >6.4glycemic control for adults with diabetes: <7.0 Hemoglobin [Mass/volume] in BloodOrdered By: Zay Arambula on 09-09-2023 Hemoglobin (Bld) [Mass/Vol] 13.7 g/dL 11.8-15.4 [facility] Leukocytes [#/volume] correc mike for nucleated erythrocytes in Blood by Automated counOrdered By: Zay Arambula on 09-09-2023 WBC corrected for nucl RBC Auto (Bld) [#/Vol] 6.3 10*3/uL 3.8-11.6 [facility] Lymphocytes Auto (Bld) [#/Vo l]Ordered By: Zay Arambula on 09-09-2023 Lymphocytes (Bld) [#/Vol] 1.5 10*3/uL 1.00-4.8 [facility] Lymphocytes/100 WBC Auto (Bl d)Ordered By: Zay Arambula on 09-09-2023 Lymphocytes/100 WBC (Bld) 24.6 % . [facility] MCH Auto (RBC) [Entitic mass ]Ordered By: Zay Arambula on 09-09-2023 MCH (RBC) [Entitic mass] 29.6 pg 24.7-34.3 [facility] MCHC Auto (RBC) [Mass/Vol]Or dered By: Zay Arambula on 09-09-2023 MCHC (RBC) [Mass/Vol] 32.6 g/dL 32.0-35.0 [facility] MCV Auto (RBC) [Entitic vol] Ordered By: Zay Arambula on 09-09-2023 MCV (RBC) [Entitic vol] 90.8 fL 80-100 [facility] Monocytes Auto (Bld) [#/Vol] Ordered By: Zay Arambula on 09-09-2023 Monocytes (Bld) [#/Vol] 0.6 10*3/uL 0.0-0.8 [facility] Monocytes/100 WBC Auto (Bld) Ordered By: Zay Arambula on 09-09-2023 Monocytes/100 WBC (Bld) 9.7 % . [facility] Neutrophils Auto (Bld) [#/Vo l]Ordered By: Zay Arambula on 09-09-2023 Neutrophils (Bld) [#/Vol] 4.0 10*3/uL 1.8-7.7 [facility] Neutrophils/100 WBC Auto (Bl d)Ordered By: Zay Arambula on 09-09-2023 Neutrophils/100 WBC (Bld) 63.6 % . [facility] No Panel InformationOrdered By: Zay Arambula on 09-09-2023 Estimated GFR (CKD-EPI) > 60.0 mL/Min [facility] Creatinine Clearance (Chem N/A [facility] Nucleated erythrocytes [Pres ence] in Blood by Automated countOrdered By: Zay Arambula on 09-09-2023 Nucleated RBC Auto Ql (Bld) 0.1 /100{WBC} 0-0.5 [facility] Platelet mean volume Auto (B ld) [Entitic vol]Ordered By: Zay Arambula on 09-09-2023 Platelet mean volume (Bld) [Entitic vol] 8.2 fL 6.3-10.7 [facility] Platelets Auto (Bld) [#/Vol] Ordered By: Zay Arambula on 09-09-2023 Platelets (Bld) [#/Vol] 249 10*3/uL 150-450 [facility] Potassium [Moles/volume] in Serum or PlasmaOrdered By: Zay Arambula on 09-09-2023 Potassium [Moles/Vol] 4.1 mmol/L 3.5-5.1 [facility] Protein [Mass/volume] in Ser um or PlasmaOrdered By: Zay Arambula on 09-09-2023 Protein [Mass/Vol] 6.6 g/dL 6.4-8.9 [facility] RBC Auto (Bld) [#/Vol]Ordere d By: Zay Arambula on 09-09-2023 RBC (Bld) [#/Vol] 4.64 10*6/uL 3.60-5.00 [facility] Serum or plasma albumin/glob ulin mass ratioOrdered By: Zay Arambula on 09-09-2023 Albumin/Globulin [Mass ratio] 2.0 {ratio} [facility] Serum or plasma anion gap de terminationOrdered By: Zay Arambula on 09-09-2023 Anion gap [Moles/Vol] 9.9 mmol/L 6.0-15.0 [facility] Serum or plasma high density lipoprotein (HDL) cholesterol measurementOrdered By: Zay Arambula on 09-09-2023 Cholesterol in HDL [Mass/Vol] 79 mg/dL 23- [facility] Comment on above: HDL CHOL ATP-III CLA SSIFICATION Cardiovascular RiskHDL > or equal to 60 mg/dL LOWHDL < 40 mg/dL HIGH Serum or plasma total choles terol/high density lipoprotein (HDL) cholesterol mass ratOrdered By: Zay Arambula on 09-09-2023 Cholesterol.total/Heide sterol in HDL [Mass ratio] 2.2 {ratio} <5.0 [facility] Sodium [Moles/volume] in Ser um or PlasmaOrdered By: Zay Arambula on 09-09-2023 Sodium [Moles/Vol] 141 mmol/L 136-145 [facility] Thyrotropin [Units/volume] i n Serum or PlasmaOrdered By: Zay Arambula on 09-09-2023 TSH Qn 1.22 m[IU]/L 0.45-5.33 [facility] Triglyceride [Mass/volume] i n Serum or PlasmaOrdered By: Zay Arambula on 09-09-2023 Triglyceride [Mass/Vol] 79 mg/dL 0-149 [facility] Comment on above: TRIG ATP III CLASSIF ICATIONTRIG less than 150 mg/dL NormalTRIG 150-199 mg/dL Borderline highTRIG 200-500 mg/dL High TRIG greater than 500 mg/dL Very highStandard traceable to the Center for Disease Conrtrol and Prevention (CDC) test method. Urea nitrogen [Mass/volume] in Serum or PlasmaOrdered By: Zay Arambula on 09-09-2023 Urea nitrogen [Mass/Vol] 11 mg/dL 01-08 [facility] WBC Auto (Bld) [#/Vol]Ordere d By: Zay Arambula on 09-09-2023 WBC (Bld) [#/Vol] 6.3 10*3/uL 3.8-11.6 [facility] A1C HEMOGLOBINon 10-04-2023 HbA1c (Bld) [Mass fraction] 5,.5 [facility] [employer] Other HbA1c (Bld) [Mass fraction]o n 03-20-2023 A1C HEMOGLOBIN [facility] [employer] Other Alanine aminotransferase [En zymatic activity/volume] in Serum or PlasmaOrdered By: Zay Arambula on 09-28-2022 ALT [Catalytic activity/Vol] 37 U/L 7-52 [facility] Albumin [Mass/volume] in Ser um or Plasma by Bromocresol green (BCG) dye binding methoOrdered By: Zay Arambula on 09-28-2022 Albumin BCG dye [Mass/Vol] 4.3 g/dL 3.5-5.7 [facility] Alkaline phosphatase [Enzyma tic activity/volume] in Serum or PlasmaOrdered By: Zay Arambula on 09-28-2022 ALP [Catalytic activity/Vol] 47 U/L 34-104 [facility] Aspartate aminotransferase [ Enzymatic activity/volume] in Serum or PlasmaOrdered By: Zay Arambula on 09-28-2022 AST [Catalytic activity/Vol] 28 U/L 13-39 [facility] Basophils Auto (Bld) [#/Vol] Ordered By: Zay Arambula on 09-28-2022 Basophils (Bld) [#/Vol] 0.1 10*3/uL 0.0-0.2 [facility] Basophils/100 WBC Auto (Bld) Ordered By: Zay Arambula on 09-28-2022 Basophils/100 WBC (Bld) 1.1 % . [facility] Bilirubin.total [Mass/volume ] in Serum or PlasmaOrdered By: Zay Arambula on 09-28-2022 Bilirubin [Mass/Vol] 0.7 mg/dL 0.3-1.0 [facility] Calcium [Mass/volume] in Ser um or PlasmaOrdered By: Zay Arambula on 09-28-2022 Calcium [Mass/Vol] 8.7 mg/dL 8.6-10.3 [facility] Carbon dioxide, total [Moles /volume] in Serum or PlasmaOrdered By: Zay Arambula on 09-28-2022 CO2 [Moles/Vol] 27.1 mmol/L 21.0-31.0 [facility] Chloride [Moles/volume] in S benja or PlasmaOrdered By: Zay Arambula on 09-28-2022 Chloride [Moles/Vol] 108 mmol/L 98-107 [facility] Cholesterol [Mass/volume] in Serum or PlasmaOrdered By: Zay Arambula on 09-28-2022 Cholesterol [Mass/Vol] 162 mg/dL 140-200 [facility] Comment on above: Chol less than 200 m g/dl low riskChol 201-239 mg/dl borderline riskChol 240 mg/dl and greater high risk Cholesterol in LDL Calc [Mas s/Vol]Ordered By: Zay Arambula on 09-28-2022 Cholesterol in LDL [Mass/Vol] 69 mg/dL 0-100 [facility] Comment on above: LDL ATP III CLASSIFI CATIONLDL less than 100 mg/dL OptimalLDL 100-129 mg/dL Near or above optimalLDL 130-159 mg/dL Borderline highLDL 160-189 mg/dL HighLDL greater than 189 mg/dL Very high Cholesterol in VLDL Calc [Ma ss/Vol]Ordered By: Zay Arambula on 09-28-2022 Cholesterol in VLDL [Mass/Vol] 9 mg/dL [facility] Creatinine [Mass/volume] in Serum or PlasmaOrdered By: Zay Arambula on 09-28-2022 Creatinine [Mass/Vol] 0.78 mg/dL 0.60-1.20 [facility] Eosinophils Auto (Bld) [#/Vo l]Ordered By: Zay Arambula on 09-28-2022 Eosinophils (Bld) [#/Vol] 0.2 10*3/uL 0.0-0.45 [facility] Eosinophils/100 WBC Auto (Bl d)Ordered By: Zay Arambula on 09-28-2022 Eosinophils/100 WBC (Bld) 2.9 % . [facility] Erythrocyte distribution wid th Auto (RBC) [Ratio]Ordered By: Zay Arambula on 09-28-2022 Erythrocyte distribution width (RBC) [Ratio] 12.9 % 11.9-15.3 [facility] Ferritin [Mass/volume] in Se rum or PlasmaOrdered By: Zay Arambula on 09-28-2022 Ferritin [Mass/Vol] 115.5 ng/mL 11.0-306.8 [facility] Globulin Calc (S) [Mass/Vol] Ordered By: Zay Arambula on 09-28-2022 Globulin (S) [Mass/Vol] 2.2 g/dL [facility] Glucose [Mass/volume] in Ser um or PlasmaOrdered By: Zay Arambula on 09-28-2022 Glucose [Mass/Vol] 105 mg/dL 70-100 [facility] Comment on above: ADA recommended refe rence rangeRandom Glucose Reference Range is dependent on time and content of last meal. Glucose of more than 200 mg/dL in a nonstressed, ambulatory subject supports the diagnosis of Diabetes Mellitus. Hematocrit Auto (Bld) [Volum e fraction]Ordered By: Zay Arambula on 09-28-2022 Hematocrit (Bld) [Volume fraction] 42.3 % 34.0-46.4 [facility] Hemoglobin [Mass/volume] in BloodOrdered By: Zay Arambula on 09-28-2022 Hemoglobin (Bld) [Mass/Vol] 13.9 g/dL 11.8-15.4 [facility] Iron [Mass/volume] in Serum or PlasmaOrdered By: Zay Arambula on 09-28-2022 Iron [Mass/Vol] 115 ug/dL 50-212 [facility] Iron binding capacity [Mass/ volume] in Serum or PlasmaOrdered By: Zay Arambula on 09-28-2022 Iron binding capacity [Mass/Vol] 392 ug/dL 255-450 [facility] Iron saturation [Mass Fracti on] in Serum or PlasmaOrdered By: Zay Arambula on 09-28-2022 Iron saturation [Mass fraction] 29.3 % 20-50 [facility] Leukocytes [#/volume] correc mike for nucleated erythrocytes in Blood by Automated counOrdered By: Zay Arambula on 09-28-2022 WBC corrected for nucl RBC Auto (Bld) [#/Vol] 6.5 10*3/uL 3.8-11.6 [facility] Lymphocytes Auto (Bld) [#/Vo l]Ordered By: Zay Arambula on 09-28-2022 Lymphocytes (Bld) [#/Vol] 2.0 10*3/uL 1.00-4.8 [facility] Lymphocytes/100 WBC Auto (Bl d)Ordered By: Zay Arambula on 09-28-2022 Lymphocytes/100 WBC (Bld) 31.2 % . [facility] MCH Auto (RBC) [Entitic mass ]Ordered By: Zay Arambula on 09-28-2022 MCH (RBC) [Entitic mass] 29.8 pg 24.7-34.3 [facility] MCHC Auto (RBC) [Mass/Vol]Or dered By: Zay Arambula on 09-28-2022 MCHC (RBC) [Mass/Vol] 32.7 g/dL 32.0-35.0 [facility] MCV Auto (RBC) [Entitic vol] Ordered By: Zay Arambula on 09-28-2022 MCV (RBC) [Entitic vol] 91.2 fL 80-100 [facility] Monocytes Auto (Bld) [#/Vol] Ordered By: Zay Arambula on 09-28-2022 Monocytes (Bld) [#/Vol] 0.6 10*3/uL 0.0-0.8 [facility] Monocytes/100 WBC Auto (Bld) Ordered By: Zay Arambula on 09-28-2022 Monocytes/100 WBC (Bld) 9.6 % . [facility] Neutrophils Auto (Bld) [#/Vo l]Ordered By: Zay Arambula on 09-28-2022 Neutrophils (Bld) [#/Vol] 3.6 10*3/uL 1.8-7.7 [facility] Neutrophils/100 WBC Auto (Bl d)Ordered By: Zay Arambula on 09-28-2022 Neutrophils/100 WBC (Bld) 55.2 % . [facility] No Panel InformationOrdered By: Zay Arambula on 09-28-2022 Estimated GFR (CKD-EPI) > 60.0 mL/Min [facility] Creatinine Clearance (Chem N/A [facility] Nucleated erythrocytes [Pres ence] in Blood by Automated countOrdered By: Zay Arambula on 09-28-2022 Nucleated RBC Auto Ql (Bld) 0.3 /100{WBC} 0-0.5 [facility] Platelet mean volume Auto (B ld) [Entitic vol]Ordered By: Zay Arambula on 09-28-2022 Platelet mean volume (Bld) [Entitic vol] 8.8 fL 6.3-10.7 [facility] Platelets Auto (Bld) [#/Vol] Ordered By: Zay Arambula on 09-28-2022 Platelets (Bld) [#/Vol] 212 10*3/uL 150-450 [facility] Potassium [Moles/volume] in Serum or PlasmaOrdered By: Zay Arambula on 09-28-2022 Potassium [Moles/Vol] 4.2 mmol/L 3.5-5.1 [facility] Protein [Mass/volume] in Ser um or PlasmaOrdered By: Zay Arambula on 09-28-2022 Protein [Mass/Vol] 6.5 g/dL 6.4-8.9 [facility] RBC Auto (Bld) [#/Vol]Ordere d By: Zay Arambula on 09-28-2022 RBC (Bld) [#/Vol] 4.65 10*6/uL 3.60-5.00 [facility] Serum or plasma albumin/glob ulin mass ratioOrdered By: Zay Arambula on 09-28-2022 Albumin/Globulin [Mass ratio] 2.0 {ratio} [facility] Serum or plasma anion gap de terminationOrdered By: Zay Arambula on 09-28-2022 Anion gap [Moles/Vol] 10.1 mmol/L 6.0-15.0 [facility] Serum or plasma high density lipoprotein (HDL) cholesterol measurementOrdered By: Zay Arambula on 09-28-2022 Cholesterol in HDL [Mass/Vol] 83 mg/dL 35-85 [facility] Comment on above: HDL CHOL ATP-III CLA SSIFICATION Cardiovascular RiskHDL > or equal to 60 mg/dL LOWHDL < 40 mg/dL HIGH Serum or plasma total choles terol/high density lipoprotein (HDL) cholesterol mass ratOrdered By: Zay Arambula on 09-28-2022 Cholesterol.total/Heide sterol in HDL [Mass ratio] 2.0 {ratio} <5.0 [facility] Sodium [Moles/volume] in Ser um or PlasmaOrdered By: Zay Arambula on 09-28-2022 Sodium [Moles/Vol] 141 mmol/L 136-145 [facility] Thyrotropin [Units/volume] i n Serum or PlasmaOrdered By: Zay Arambula on 09-28-2022 TSH Qn 1.64 m[IU]/L 0.45-5.33 [facility] Thyroxine (T4) free [Mass/vo lume] in Serum or PlasmaOrdered By: Zay rAambula on 09-28-2022 Free T4 [Mass/Vol] 0.85 ng/dL 0.61-1.12 [facility] Transferrin [Mass/volume] in Serum or PlasmaOrdered By: Zay Arambula on 09-28-2022 Transferrin [Mass/Vol] 280 mg/dL 203-362 [facility] Triglyceride [Mass/volume] i n Serum or PlasmaOrdered By: Zay Arambula on 09-28-2022 Triglyceride [Mass/Vol] 49 mg/dL 0-149 [facility] Comment on above: TRIG ATP III CLASSIF ICATIONTRIG less than 150 mg/dL NormalTRIG 150-199 mg/dL Borderline highTRIG 200-500 mg/dL High TRIG greater than 500 mg/dL Very highStandard traceable to the Center for Disease Conrtrol and Prevention (CDC) test method. Urea nitrogen [Mass/volume] in Serum or PlasmaOrdered By: Zay Arambula on 09-28-2022 Urea nitrogen [Mass/Vol] 15 mg/dL 7-25 [facility] WBC Auto (Bld) [#/Vol]Ordere d By: Zay Arambula on 09-28-2022 WBC (Bld) [#/Vol] 6.5 10*3/uL 3.8-11.6 [facility] Vital Signs Date Time Vital Sign Value Performing Clinician Facility 09-09-2024 09:00-0400 Body height 157.48 cm Zay Arambula DO Work Phone: [facility] 09-09-2024 09:00-0400 Body mass index (BMI) [Ratio] 31.2 kg/m2 Zay Héctors DO Work Phone: [facility] 09-09-2024 09:00-0400 Body weight 77.56 kg Zay Héctors DO Work Phone: [facility] 09-09-2024 09:00-0400 Diastolic blood pressure 88 mm[Hg] Zay Kuns DO Work Phone: [facility] 09-09-2024 09:00-0400 Heart rate 88 /min Zay Kuns DO Work Phone: [facility] 09-09-2024 09:00-0400 Respiratory rate 18 /min Zay Héctors DO Work Phone: [facility] 09-09-2024 09:00-0400 SaO2% (BldA) [Mass fraction] 97 % Zay Héctors DO Work Phone: [facility] 09-09-2024 09:00-0400 Systolic blood pressure 142 mm[Hg] Zay Hcétors DO Work Phone: [facility] 07-07-2024 16:04-0500 Body height 157.48 cm Zay Héctors DO Work Phone: [facility] 07-07-2024 16:04-0500 Body mass index (BMI) [Ratio] 31.8 kg/m2 Zay Kuns DO Work Phone: [facility] 07-07-2024 16:04-0500 Body weight 78.92 kg Zay Kuns DO Work Phone: [facility] 07-07-2024 16:04-0500 Diastolic blood pressure 90 mm[Hg] Zay Kuns DO Work Phone: [facility] 07-07-2024 16:04-0500 Heart rate 87 /min Zay Kuns DO Work Phone: [facility] 07-07-2024 16:04-0500 Respiratory rate 18 /min Zay Kuns DO Work Phone: [facility] 07-07-2024 16:04-0500 SaO2% (BldA) [Mass fraction] 98 % Zay Kuns DO Work Phone: [facility] 07-07-2024 16:04-0500 Systolic blood pressure 150 mm[Hg] Zay Kuns DO Work Phone: [facility] 02-11-2024 14:32-0400 Body height 157.48 cm DO Zay Kuns Work Phone: [facility] 02-11-2024 14:32-0400 Body mass index (BMI) [Ratio] 27.4 kg/m2 DO Zay Kuns Work Phone: [facility] 02-11-2024 14:32-0400 Body weight 68.03 kg DO Zay Kuns Work Phone: [facility] 02-11-2024 14:32-0400 Diastolic blood pressure 96 mm[Hg] DO Zay Kuns Work Phone: [facility] 02-11-2024 14:32-0400 Heart rate 91 /min DO Zay Kuns Work Phone: [facility] 02-11-2024 14:32-0400 Respiratory rate 16 /min DO Zay Kuns Work Phone: [facility] 02-11-2024 14:32-0400 SaO2% (BldA) [Mass fraction] 98 % DO Zay Kuns Work Phone: [facility] 02-11-2024 14:32-0400 Systolic blood pressure 144 mm[Hg] DO Zay Kuns Work Phone: [facility] 09-05-2023 13:49-0400 Body height 157.48 cm DO Zay Kuns Work Phone: [facility] 09-05-2023 13:49-0400 Body mass index (BMI) [Ratio] 28.9 kg/m2 DO Zay Kuns Work Phone: [facility] 09-05-2023 13:49-0400 Body weight 71.66 kg DO Zay Kuns Work Phone: [facility] 09-05-2023 13:49-0400 Diastolic blood pressure 80 mm[Hg] DO Zay Kuns Work Phone: [facility] 09-05-2023 13:49-0400 Heart rate 85 /min DO Zay Kuns Work Phone: [facility] 09-05-2023 13:49-0400 Respiratory rate 16 /min DO Zay Kuns Work Phone: [facility] 09-05-2023 13:49-0400 SaO2% (BldA) [Mass fraction] 94 % DO Zay Kuns Work Phone: [facility] 09-05-2023 13:49-0400 Systolic blood pressure 118 mm[Hg] DO Zay Kuns Work Phone: [facility] 08-08-2023 14:12-0500 Body height 157.48 cm DO Zay Kuns Work Phone: [facility] 08-08-2023 14:12-0500 Body mass index (BMI) [Ratio] 29.6 kg/m2 DO Zay Kuns Work Phone: [facility] 08-08-2023 14:12-0500 Body weight 73.48 kg DO Zay Kuns Work Phone: [facility] 08-08-2023 14:12-0500 Diastolic blood pressure 86 mm[Hg] DO Zay Kuns Work Phone: [facility] 08-08-2023 14:12-0500 Heart rate 83 /min DO Zay Arambula Work Phone: [facility] 08-08-2023 14:12-0500 Respiratory rate 16 /min DO Zay Arambula Work Phone: [facility] 08-08-2023 14:12-0500 SaO2% (BldA) [Mass fraction] 97 % DO Zay Arambula Work Phone: [facility] 08-08-2023 14:12-0500 Systolic blood pressure 130 mm[Hg] DO Zay Arambula Work Phone: [facility] 07-11-2023 13:45-0500 Body height 157.48 cm Zay Arambula Other [facility] 07-11-2023 13:45-0500 Body mass index (BMI) [Ratio] 30.21 kg/m2 Zay Arambula Other [facility] [employer] Other 07-11-2023 13:45-0500 Body weight 74.93 kg Zay Arambula Other [facility] 07-11-2023 13:45-0500 Diastolic blood pressure 76 mm[Hg] Zay Arambula Other [facility] 07-11-2023 13:45-0500 Respiratory rate 16 /min Zay Arambula Other [employer] [facility] [employer] Other 07-11-2023 13:45-0500 SaO2% (BldA) [Mass fraction] 96 % Zay Arambula Other [employer] [facility] [employer] Other 07-11-2023 13:45-0500 Systolic blood pressure 116 mm[Hg] Zay Anayas Other [facility] 06-13-2023 14:45-0500 Body height 157.48 cm Zay Anayas Other [facility] 06-13-2023 14:45-0500 Body mass index (BMI) [Ratio] 30.47 kg/m2 Zay Arambula Other [employer] Other 06-13-2023 14:45-0500 Body weight 75.57 kg Zay Arambula Other [employer] Other 06-13-2023 14:45-0500 Body weight 75.56 kg DO Zayjailyn Arambula Work Phone: [facility] 06-13-2023 14:45-0500 Diastolic blood pressure 78 mm[Hg] Zay Arambula Other [facility] 06-13-2023 14:45-0500 Respiratory rate 16 /min Zay Arambula Other [employer] Other 06-13-2023 14:45-0500 SaO2% (BldA) [Mass fraction] 96 % Zay Arambula Other [employer] Other 06-13-2023 14:45-0500 Systolic blood pressure 128 mm[Hg] Zay Arambula Other [facility] 05-16-2023 14:15-0500 Body height 157.48 cm Zay Arambula Other [employer] Other 05-16-2023 14:15-0500 Body mass index (BMI) [Ratio] 31.02 kg/m2 Zay Arambula Other [employer] Other 05-16-2023 14:15-0500 Body weight 76.93 kg Zay Arambula Other [employer] Other 05-16-2023 14:15-0500 Diastolic blood pressure 84 mm[Hg] Zayjailyn Anayamabel Other [employer] Other 05-16-2023 14:15-0500 Respiratory rate 18 /min Zay Anayamabel Other [employer] Other 05-16-2023 14:15-0500 SaO2% (BldA) [Mass fraction] 95 % Zayjailyn Anayamabel Other [employer] Other 05-16-2023 14:15-0500 Systolic blood pressure 124 mm[Hg] Zay Arambula Other [employer] Other 04-18-2023 12:30-0400 Body height 157.48 cm Zayjailyn Anayamabel Other [employer] Other 04-18-2023 12:30-0400 Body mass index (BMI) [Ratio] 32 kg/m2 Zay Anayamabel Other [employer] Other 04-18-2023 12:30-0400 Body weight 79.38 kg Zay Arambula Other [employer] Other 04-18-2023 12:30-0400 Diastolic blood pressure 86 mm[Hg] Zay Cholo Other [employer] Other 04-18-2023 12:30-0400 Respiratory rate 18 /min Zay Cholo Other [employer] Other 04-18-2023 12:30-0400 SaO2% (BldA) [Mass fraction] 99 % Zay Arambula Other [employer] Other 04-18-2023 12:30-0400 Systolic blood pressure 136 mm[Hg] Zay Arambula Other [employer] Other 03-20-2023 09:30-0400 Body height 157.48 cm Zay Arambula Other [employer] Other 03-20-2023 09:30-0400 Body mass index (BMI) [Ratio] 32.55 kg/m2 Zay Arambula Other [employer] Other 03-20-2023 09:30-0400 Body weight 80.74 kg Zay Arambula Other [employer] Other 03-20-2023 09:30-0400 Diastolic blood pressure 74 mm[Hg] Zay Arambula Other [employer] Other 03-20-2023 09:30-0400 Respiratory rate 16 /min Zay Cholo Other [employer] Other 03-20-2023 09:30-0400 SaO2% (BldA) [Mass fraction] 98 % Zay Arambula Other [employer] Other 03-20-2023 09:30-0400 Systolic blood pressure 122 mm[Hg] Zay Arambula Other [employer] Other 12-10-2022 14:00-0400 Body height 157.48 cm Zay Arambula Other [employer] Other 12-10-2022 14:00-0400 Body mass index (BMI) [Ratio] 32.19 kg/m2 Zay Arambula Other [employer] Other 12-10-2022 14:00-0400 Body weight 79.83 kg Zay Cholo Other [employer] Other 12-10-2022 14:00-0400 Diastolic blood pressure 84 mm[Hg] Zay Arambula Other [employer] Other 12-10-2022 14:00-0400 Respiratory rate 16 /min Zay Arambula Other [employer] Other 12-10-2022 14:00-0400 SaO2% (BldA) [Mass fraction] 97 % Zay Arambula Other [employer] Other 12-10-2022 14:00-0400 Systolic blood pressure 134 mm[Hg] Zay Arambula Other [employer] Other 10-16-2022 14:45-0400 Body height 157.48 cm Zay Arambula Other [employer] Other 10-16-2022 14:45-0400 Body mass index (BMI) [Ratio] 32 kg/m2 Zay Arambula Other [facility] Other 10-16-2022 14:45-0400 Body weight 79.38 kg Zay Arambula Other [facility] Other 10-16-2022 14:45-0400 Diastolic blood pressure 78 mm[Hg] Zay Arambula Other [facility] Other 10-16-2022 14:45-0400 Respiratory rate 16 /min Zay Arambula Other [facility] Other 10-16-2022 14:45-0400 SaO2% (BldA) [Mass fraction] 98 % Zay Héctormabel Other [facility] Other 10-16-2022 14:45-0400 Systolic blood pressure 136 mm[Hg] Zay Arambula Other [facility] Other 09-24-2022 15:00-0400 Body height 157.48 cm Zay Arambula Other [facility] Other 09-24-2022 15:00-0400 Body mass index (BMI) [Ratio] 32 kg/m2 aZy Arambula Other [facility] Other 09-24-2022 15:00-0400 Body weight 79.38 kg Zay Arambula Other [facility] Other 09-24-2022 15:00-0400 Diastolic blood pressure 88 mm[Hg] Zay Arambula Other [facility] Other 09-24-2022 15:00-0400 Respiratory rate 16 /min Zay Arambula Other [facility] Other 09-24-2022 15:00-0400 SaO2% (BldA) [Mass fraction] 96 % Zay Arambula Other [facility] Other 09-24-2022 15:00-0400 Systolic blood pressure 128 mm[Hg] Zay Arambula Other [facility] Other 06-13-2021 14:45-0500 Body height 157.48 cm Zay Arambula Other [facility] Other 06-13-2021 14:45-0500 Body temperature 96.7 [degF] Zayjailyn Arambula Other [facility] Other 06-13-2021 14:45-0500 Diastolic blood pressure 80 mm[Hg] Zya Cholo Other [facility] Other 06-13-2021 14:45-0500 Systolic blood pressure 135 mm[Hg] Zay Arambula Other [facility] Other 04-11-2021 14:45-0400 Body height 157.48 cm Zay Arambula Other [facility] Other 04-11-2021 14:45-0400 Body mass index (BMI) [Ratio] 31.82 kg/m2 Zay Arambula Other [facility] Other 04-11-2021 14:45-0400 Body weight 78.93 kg Zay Arambula Other [facility] Other 04-11-2021 14:45-0400 Diastolic blood pressure 70 mm[Hg] Zay Arambula Other [facility] Other 04-11-2021 14:45-0400 Respiratory rate 16 /min Zay Arambula Other [facility] Other 04-11-2021 14:45-0400 SaO2% (BldA) [Mass fraction] 97 % Zay Arambula Other [facility] Other 04-11-2021 14:45-0400 Systolic blood pressure 116 mm[Hg] Zay Arambula Other [facility] Other Encounters Encounter Date Encounter Type Care Provider Facility Start: 09-09-2024 End: 09-09-2024 Patient encounter procedure Zay Arambula DO Work Phone: [facility] [place] Work Phone: Start: 09-09-2024 End: 09-09-2024 ambulatory Zay Arambula DO Work Phone: [facility] Work Phone: Start: 09-09-2024 End: 09-09-2024 ambulatory Zay Arambula DO Work Phone: [facility] Work Phone: Start: 09-09-2024 End: 09-09-2024 Encounter for general adult medical examination without abnormal findings Zay Cholo DO Work Phone: [facility] Start: 09-09-2024 End: 09-09-2024 Patient encounter procedure Zay Arambula DO Work Phone: [facility] [place] Work Phone: Start: 07-07-2024 End: 07-07-2024 Patient encounter procedure Zay Arambula DO Work Phone: [facility] [place] Work Phone: Start: 04-13-2024 End: 04-13-2024 Patient encounter procedure DO Zay Arambula Work Phone: [facility] Work Phone: Start: 04-13-2024 End: 04-13-2024 ambulatory DO Zayjailyn Arambula Work Phone: [facility] Work Phone: Start: 03-12-2024 Non-patient / Non-visit DO Nav jailyn Cholo Work Phone: [facility] [place] Work Phone: Start: 02-11-2024 End: 02-11-2024 Patient encounter procedure DO Zay Arambula Work Phone: [facility] [place] Work Phone: Start: 12-13-2023 End: 12-13-2023 ambulatory Zay Arambula Facility:[facility] Start: 11-18-2023 End: 11-18-2023 ambulatory MARIANA RONQUILLO Not Available Start: 10-01-2023 End: 10-01-2023 ambulatory AJAY NEWBY Not Available Start: 09-09-2023 End: 09-09-2023 ambulatory DO Zay Arambula Work Phone: [facility] Work Phone: Start: 09-09-2023 End: 09-09-2023 Patient encounter procedure DO Zay Arambula Work Phone: [facility] [place] Work Phone: Start: 09-05-2023 End: 09-05-2023 Patient encounter procedure DO Zay Arambula Work Phone: [facility] [place] Work Phone: Start: 08-08-2023 End: 08-08-2023 Patient encounter procedure DO Zay Arambula Work Phone: [facility] [place] Work Phone: Start: 07-11-2023 End: 07-11-2023 ambulatory Zay Arambula Other [facility] Other Start: 07-11-2023 Office outpatient vi sit 15 minutes Zay Arambula [facility] [place] Start: 07-11-2023 End: 07-11-2023 Patient encounter procedure DO Zay Arambula Work Phone: [facility]- Start: 06-13-2023 End: 06-13-2023 ambulatory Zay Arambula Other [facility] Other Start: 06-13-2023 Office outpatient vi sit 15 minutes Zay Arambula [facility] [place] Start: 06-13-2023 End: 06-13-2023 Patient encounter procedure DO Zay Arambula Work Phone: [facility] [place] Work Phone: Start: 05-16-2023 End: 05-16-2023 ambulatory Zay Arambula Other [facility] Other Start: 05-16-2023 Office outpatient vi sit 15 minutes Zay Arambula [facility] [place] Start: 04-19-2023 End: 04-19-2023 ambulatory Zay Arambula Other [facility] Other Start: 04-19-2023 Telephone encounter Zay Arambula [facility] [place] Start: 04-18-2023 End: 04-18-2023 ambulatory Zay Arambula Other [facility] Other Start: 04-18-2023 Office outpatient vi sit 15 minutes Zay Arambula [facility] [place] Start: 03-20-2023 End: 03-20-2023 ambulatory Zay Arambula Other [facility] Other Start: 03-20-2023 Office outpatient vi sit 15 minutes Zay Arambula [facility] [place] Start: 02-18-2023 End: 02-18-2023 ambulatory Zay Arambula Other [facility] Other Start: 02-18-2023 Encounter by carolin Arambula [facility] [place] Start: 01-16-2023 End: 01-16-2023 ambulatory Zay Arambula Other [facility] Other Start: 01-16-2023 Encounter by Shiftg[employer] r link Zay Arambula [facility] [place] Start: 12-10-2022 End: 12-10-2022 ambulatory Zay Arambula Other [facility] Other Start: 12-10-2022 Office outpatient vi sit 15 minutes Zay Arambula [facility] [place] Start: 12-07-2022 End: 12-07-2022 ambulatory Zay Arambula Other [facility] Other Start: 12-07-2022 Telephone encounter Zay Arambula [facility] [place] Start: 12-02-2022 End: 12-02-2022 ambulatory Zay Arambula Other [facility] Other Start: 12-02-2022 Encounter by Seculert Zay Arambula [facility] [place] Start: 11-13-2022 End: 11-13-[address] ZAY ARAMBULA Facility: Start: 10-18-2022 End: 10-18-2022 ambulatory Zay Arambula Other [facility] Other Start: 10-18-2022 Telephone encounter Zay Arambula [facility] [place] Start: 10-16-2022 End: 10-16-2022 ambulatory Zay Arambula Other [employer] Other Start: 10-16-2022 Office outpatient vi sit 15 minutes Zay Arambula [facility] [place] Start: 10-16-2022 Telephone encounter Zay Arambula [facility] [place] Start: 09-28-2022 End: 09-28-2022 ambulatory DO Zay Arambula Work Phone: [facility] Work Phone: Start: 09-28-2022 End: 09-28-2022 Patient encounter procedure DO Zay Arambula Work Phone: [facility] [place] Work Phone: Start: 09-24-2022 End: 09-24-2022 ambulatory Zay Arambula Other [facility] Other Start: 09-24-2022 Office outpatient vi sit 25 minutes Zay Arambula [facility] [place] Start: 07-17-2022 End: 07-17-2022 ambulatory Zay Héctormabel Other [facility] Other Start: 07-17-2022 Encounter by Seculert Zay Cholo [facility] [place] Start: 06-28-2022 End: 06-28-2022 ambulatory Zayjailyn Arambula Other [facility] Other Start: 06-28-2022 Telephone encounter Zayjailyn Anayamabel [facility] [place] Start: 06-02-2022 End: 06-02-2022 ambulatory Zayjailyn Arambula Other [facility] Other Start: 06-02-2022 Encounter by Seculert Zay Cholo [facility] [place] Start: 12-04-2021 End: 12-04-2021 ambulatory Zayjailyn Arambula Other [facility] Other Start: 12-04-2021 Encounter by Seculert Zay Cholo [facility] [place] Start: 11-16-2021 End: 11-16-2021 ambulatory Zay Héctormabel Other [employer] Other Start: 11-16-2021 Telephone encounter Zayjailyn Arambula [facility] [place] Start: 06-18-2021 End: 06-18-2021 ambulatory Zay Héctormabel Other [facility] Other Start: 06-18-2021 Encounter by compute r link Zay Arambula [facility] Start: 06-13-2021 (Televisit) Televisit Zay Arambula [facility] Start: 06-13-2021 End: 06-13-2021 ambulatory Zay Cholo Other [employer] Other Start: 05-01-2021 End: 05-01-2021 ambulatory Zay Cholo Other [facility] Other Start: 05-01-2021 Encounter by Seculert Zay Cholo [facility] Start: 04-11-2021 Office outpatient vi sit 15 minutes Zay Arambula [facility] Procedures Date Procedure Procedure Detail Performing Clinician Start: 04-13-2024 X-ray of left knee, four views DO Zay Arambula Work Phone: Start: 02-11-2024 Quick Strep (POC) DO Ruth rowe Cholo Work Phone: Start: 02-11-2024 RSV (POC) DO Zay Talbert israel Work Phone: Electrocardiogram Zay Arambula Other Plan of Treatment Date Care Activity Detail Author Start: 09-09-2024 [facility] Start: 09-09-2024 [facility] Albumin/Globulin ratio [facility] Anion gap measurement [facility] Basophils [#/volume] in Blood by Automated count [facility] Basophils/100 leukoc ytes in Blood by Automated count [facility] Calculated LDL cholesterol level [facility] Cholesterol.total/Ch olesterol in HDL [Mass Ratio] in Serum or Plasma [facility] Eosinophils/100 leuk ocytes in Blood by Automated count [facility] Erythrocyte distribu tion width [Ratio] by Automated count [facility] Erythrocytes [#/volume] in Blood [facility] Globulin [Mass/volume] in Serum [facility] Glucose measurement estimated from glycated hemoglobin [facility] Glucose measurement estimated from glycated hemoglobin [facility] Hematocrit [Volume F raction] of Blood [facility] Hemoglobin [Mass/vol ume] in Blood [facility] Hemoglobin A1c/Hemog lobin.total in Blood [facility] Leukocytes [#/volume ] corrected for nucleated erythrocytes in Blood by Automated coun [facility] Leukocytes [#/volume] in Blood [facility] Lymphocytes [#/volum e] in Blood by Automated count [facility] Lymphocytes/100 leuk ocytes in Blood by Automated count [facility] MCH [Entitic mass] b y Automated count [facility] MCHC [Mass/volume] b y Automated count [facility] MCV [Entitic volume] by Automated count [facility] Monocytes [#/volume] in Blood by Automated count [facility] Monocytes/100 leukoc ytes in Blood by Automated count [facility] Neutrophils [#/volum e] in Blood by Automated count [facility] Neutrophils/100 leuk ocytes in Blood by Automated count [facility] Nucleated erythrocyt es [Presence] in Blood by Automated count [facility] Platelet mean volume [Entitic volume] in Blood by Automated count [facility] Platelets [#/volume] in Blood [facility] VLDL cholesterol measurement [facility] Immunizations Immunization Date Immunization Notes Care Provider Torrey kirkland 06-14-2021 COVID-19 mRNA, Comirnaty (Pfizer) DO Zay Arambula Work Phone: [facility] 10-12-2020 COVID-19 Vaccine Pfizer - Documentation Purposes Only Zay Arambula Other [facility] 09-21-2020 COVID-19 Vaccine Pfizer - Documentation Purposes Only Zay Arambula Other [facility] 09-26-2018 influenza, seasonal, injectable Patient Objection Zay Arambula Other [facility] Other NEGATED: Highlighted row has not occurred!09-26-2018 influenza, seasonal, injectable Patient Objection Zay Arambula Other [facility] Payers Date Payer Category Payer Unknown [id number] 2023 Self-pay [id number] 1965 Unknown [id number] 1965 Unknown [id number] 1965 Unknown [id number] 1958 [facility] [id number] Unknown HCAP/HFA/FAP Active [id number] Unknown [id number] Unknown [id number] Unknown [id number] Unknown [id number] Social History Date Type Detail Facility Unknown if ever smoked [facility] Other Sex Assigned At Sex Assigned At Bir th [facility] Other Start: 04-30-2017 End: 09-09-2024 Tobacco smoking status NHIS Ex-smoker (finding) [facility] Start: 1965 Sex Assigned At Female F [facility] Start: 09-09-2024 End: 09-10-2024 Sex Female (finding) [facility] Clinical Notes 07-18-2016 to 09-09-2024 Note Date & Type Note Facility 09-09-2024 Evaluation note Authored September 09, 2024 9:2 4am The above note written by Soto Cardoso LPN, acting as human recorder, note dictated by Dr. Zay Arambula. [facility] Work Phone: 1(654) 686-718308-27-2024 Evaluation note* Author Magali Cardoso [facility] Authored February 11, 2024 2: 27pm The above note written by Soto Cardoso LPN, acting as human recorder, note dictated by Dr. Zay Arambula. [facility] Work Phone: 1(127) 850-453802-22-2024 Evaluation note* Author Franny Alvarado [facility] Authored August 08, 2023 3:53pm The above note written by RICH Serrato acting as human recorder, note dictated by Dr.Bryan Arambula. Author Elodia Castle [facility] Authored September 05, 2023 2:1 2pm Sooner if needed, the ER if concerns,The above note written by Eloida Castle LPN acting as human recorder, note dictated by Dr. Zay Arambula [facility] Work Phone: 1(878) 974-934401-25-2024 Evaluation note* Encounter Date Diagnosis Assessment Notes Treatment Notes Treatment Clinical Notes Jun, BMI 30.0-30.9,adult (ICD-10 - Z68.30) Patient is to continue with the above medication. Encouraged patient with her efforts in weight loss. Refill provided. We will follow up again next month. Jun, Obesity (ICD-10 - E66.9) Encouraged to watch diet and increase exercise regimen; we will continue to monitor. [facility] Other 12-28-2023 Evaluation note* Encounter Date Diagnosis Assessment Notes Treatment Notes Treatment Clinical Notes May, Obesity (ICD-10 - E66.9) Encouraged she continue with weight loss efforts. May, BMI 30.0-30.9,adult (ICD-10 - Z68.30) Patient has lost three pounds and was advised she needs to lose another five pounds over the next two months to continue after the initial three months. Patient encouraged to stay active and monitor diet to promote optimal weight loss. Refill e-scribed. 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 She also has multiple other spots on her arms and legs that I advised should be monitored. She is in agreement with getting established with dermatology. She will call if a referral is needed. May, Other asthma (ICD-10 - J45.998) Brand symbicort is no longer covered as of the beginning of the year, generic printed to take in when she needs a refill. [facility] Other 11-30-2023 Evaluation note* Encounter Date Diagnosis Assessment Notes Treatment Notes Treatment Clinical Notes Apr, Other obesity due to excess calories (ICD-10 - E66.09) Encouraged to watch diet and increase exercise regimen; we will continue to monitor. Apr, BMI 31.0-31.9,adult (ICD-10 - Z68.31) Patient presents in the office with a nine pound weight loss from last check. Refill provided. Apr, Anxiety (ICD-10 - F41.9) Patient admits to increase of anxiety, stress and irritability. Patient has been on different SSRI's in the past. The patient has on prozac in the past that Dr. Ronquillo did prescribe and she does recall this helping. Therefore I did prescribe the above medication. Apr, Other asthma (ICD-10 - J45.998) The patient got a notice her insurance will no longer be covering the symbicort inhaler, patient is to bring in the letter from her insurance at the next appointment to see what they will cover. [facility] Other 11-03-2023 Evaluation note* Encounter Date Diagnosis Assessment Notes Treatment Notes Treatment Clinical Notes Apr, Other obesity due to excess calories (ICD-10 - E66.09) [facility] Other 11-02-2023 Evaluation note* Encounter Date Diagnosis Assessment Notes Treatment Notes Treatment Clinical Notes Apr, Other obesity due to excess calories (ICD-10 - E66.09) Pt's goal was to lose 8.5 pounds over the 3 month course. She does have 5.3 pounds to go to meet her goal, which I do feel she will be able to achieve. She feels she could have lost more this month, but she was laid off for some time and was less active. Pt is doing well on the above medication, therefore a refill was provided for them today after an [place] report was generated and reviewed. Pt is to continue with the above medication and continue watching their diet and increase their exercise regimen. Apr, Body mass index [BMI] 32.0-32.9, adult (ICD-10 - Z68.32) [facility] Other 10-04-2023 Evaluation note* Encounter Date Diagnosis Assessment Notes Treatment Notes Treatment Clinical Notes Mar, Dizziness (ICD-10 - R42) Dizziness has subsided somewhat. It is triggered periodically when she gets her hair done. Mar, Seasonal allergies (ICD-10 - J30.2) Mar, Screening for colon cancer (ICD-10 - Z12.11) Recent cologuard from 12/2022 was negative. This will be repeated in 3 years. To report any changes in stools Mar, Hyperglycemia (ICD-10 - R73.9) In house A1C is 5.5 which has improved from previous. She has modified her diet and has tried to reduce her carb and starch intake. I do want her to continue with diet modification. Increase activity as tolerated and she needs to work on weight loss. Mar, Essential (primary) hypertension (ICD-10 - I10) Blood pressure is well controlled on the lisinopril She denies any cough. I do wish to keep her on the current meds as ordered and I want her to continue to monitor her BP at home. Work on weight loss Mar, Other obesity due to excess calories (ICD-10 - E66.09) Patient is wanting to lose weight. She had taken Adipex by a different provider over a year ago and did well on it. She is interested in trying Adipex again to lose weight. I have reviewed the criteria and rules for being on this medication. She must present with a 5% weight reduction in order to continue to be on this. EKG will be performed in office today. If this is normal then I will order Adipex for her today. She needs to lose 7 pounds in the next 3 months. EKG in office does not show any changes from the previous. Safe to start medication Mar, Body mass index [BMI] 32.0-32.9, adult (ICD-10 - Z68.32) Patient needs to reduce her caloric intake. Increase activity and work on weight loss. I will initiate adipex today. [facility] Other 09-04-2023 Evaluation note* Encounter Date Diagnosis Assessment Notes Treatment Notes Treatment Clinical Notes Feb, Other asthma (ICD-10 - J45.998) [facility] Other 06-26-2023 Evaluation note* Encounter Date Diagnosis Assessment Notes Treatment Notes Treatment Clinical Notes Nov, Dizziness (ICD-10 - R42) Patient voices significant improvement on antivert. She describes several instances of vertigo in a few days time before calling last Saturday when antivert was prescribed for her. Upon examination I did reproduce a slight vertiginious episode with head maneuver, very mild in nature. Work note provided, she may continue with antivert as needed. Nov, Screening for colon cancer (ICD-10 - Z12.11) [facility] Other 06-23-2023 Evaluation note* Encounter Date Diagnosis Assessment Notes Treatment Notes Treatment Clinical Notes Nov, Vertigo (ICD-10 - R42) [facility] Other 06-18-2023 Evaluation note* Encounter Date Diagnosis Assessment Notes Treatment Notes Treatment Clinical Notes Nov, Essential (primary) hypertension (ICD-10 - I10) [facility] Other 05-02-2023 Evaluation note* Encounter Date Diagnosis Assessment Notes Treatment Notes Treatment Clinical Notes October, Hyperlipidemia (ICD-10 - E78.5) Cholesterol levels are great upon review of blood work results. Total cholesterol is WNL at 162, LDL is WNL at 69 and HDL is borderline elevated at 89 which I am very happy about. Therefore the patient is to continue to monitor diet and exercise. October, Hyperglycemia (ICD-1 0 - R73.9) Fasting glucose reading of 105 and A1C reading of 5.8. Therefore, patient is to continue to monitor diet and exercise. October, Fatigue, unspecified type (ICD-10 - R53.83) Iron levels and thyroid levels are WNL upon review of blood work results. October, Migraine (ICD-10 - G43.909) Patient admits to missing two days of work back in August due to migraines. I am agreeable that the patient needs to get FMLA for migraines and I am agreeable to provide this for her. Refill provided of the above medication. [facility] Other 04-10-2023 Evaluation note* Encounter Date Diagnosis Assessment Notes Treatment Notes Treatment Clinical Notes Sep, Hand pain, right (ICD-10 - M79.641) Patient does have significant pain and swelling in her right hand but she does repetitive movements at work using a cutting tool. Sep, Seasonal allergies (ICD-10 - J30.2) I did suggest updating blood work then as long as everything looks okay, we will discuss a kenalog injection when she returns as OTC allergy medications are not as effective. Sep, Lumbar back pain (ICD-10 - M54.50) Patient does have intermittent back pain that is worsened with different tasks at work. Sep, Fatigue (ICD-10 - R53.83) Patient reports significant fatigue for quite some time now. She has not had any blood work since 2020 therefore I suggested we update that before we discuss further. She did start using [employer] supplements including turmeric, magnesium 50mg, and 5mg melatonin gummies that both help her sleep at night and will also help with her joint pain/swelling. Blood work ordered to update. Sep, Hyperlipidemia (ICD-10 - E78.5) Blood work ordered to update. Sep, Hyperglycemia (ICD-1 0 - R73.9) Blood work ordered to update. Sep, Sinusitis (ICD-10 - J32.9) Above prescribed to alleviate sinus symptoms related to the weather. She was advised if the oral steroids help but wear off and symptom start to return, we will discuss a kenalog injection when she comes back to review her blood work. Pt was advised to get blood work before starting oral steroid but she may start the zpak right away. [facility] Other 01-31-2023 Evaluation note* Encounter Date Diagnosis Assessment Notes Treatment Notes Treatment Clinical Notes Jun, Other asthma (ICD-10 - J45.998) [employer] Other 01-12-2023 Evaluation note* Encounter Date Diagnosis Assessment Notes Treatment Notes Treatment Clinical Notes Jun, Other asthma (ICD-10 - J45.998) [facility] Other 12-17-2022 Evaluation note* Encounter Date Diagnosis Assessment Notes Treatment Notes Treatment Clinical Notes May, Essential (primary) hypertension (ICD-10 - I10) [facility] Other 06-20-2022 Evaluation note* Encounter Date Diagnosis Assessment Notes Treatment Notes Treatment Clinical Notes Nov, Essential (primary) hypertension (ICD-10 - I10) [facility] Other 12-28-2021 Evaluation note* Encounter Date Diagnosis Assessment Notes Treatment Notes Treatment Clinical Notes May, Cough (ICD-10 - R05) I did prescribe the above antibiotic with steroids and encouraged patient to increase fluids. Discussed with patient if the symptoms persist, suggest a covid test. Patient verbally understood. May, Edema of hand (ICD-10 - R60.0) Reviewed XR results with the patient May, Right hand pain (ICD-10 - M79.641) Reviewed XR results with patient. Noted mild arthritis at the right thumb. I advised patient to continue using topical as needed. May, Other asthma (ICD-10 - J45.998) Patient is to continue with the above inhaler as needed. [facility] Other 11-15-2021 Evaluation note* Encounter Date Diagnosis Assessment Notes Treatment Notes Treatment Clinical Notes Apr, Pain of finger of right hand (ICD-10 - M79.644) Apr, Other asthma (ICD-10 - J45.998) [facility] Other 10-26-2021 Evaluation note* Encounter Date Diagnosis Assessment Notes Treatment Notes Treatment Clinical Notes Mar, Migraine (ICD-10 - G43.909) I did provide a refill of the above medication for patient to take as needed for migraine. Mar, Hyperglycemia (ICD-1 0 - R73.9) Patients A1C reading of 5.6 upon review of blood work results. Mar, Fatigue, unspecified type (ICD-10 - R53.83) Patients TSH and iron levels are WNL upon review of blood work results. Mar, Hyperlipidemia (ICD-10 - E78.5) Patients cholesterol levels continue to be WNL upon review of blood work results. Therefore I encouraged patient to continue with diet and exercise. Mar, Pain of finger of right hand (ICD-10 - M79.644) Noted right middle finger. Patient reports pain, swelling and tingling sensation. I did provide sample of the above topical cream. XR order provided to rule out abnormalities. [facility] Other 02-01-2017 History general Narrative - Reported* Type Description Date Medical History hypertension 2010 Medical History mammogram (2010) Medical History 07/2016 Right Nephrolithiasis Medical History 07/27/2016 Medical History Follows with Dr. Ronquillo for paps and mammograms Medical History 10/2019 Mammogram, P AP smear, and DEXA at [facility] Surgical History gallbladder removed 1994 Surgical History tonsils removed Surgical History 1983 Surgical History D&C 09/2016 Surgical History Hysterectomy 08/2018 Hospitalization History see above [facility] Other 02-01-2017 History general Narrative - Reported* Type Description Date Medical History hypertension 2010 Medical History mammogram (2010) Medical History 07/2016 Right Nephrolithiasis Medical History 07/27/2016 Medical History Follows with Dr. Ronquillo for paps and mammograms Medical History 10/2019 Mammogram, P AP smear, and DEXA at [facility] Medical History 12/21/2022 Negative cologuard Surgical History gallbladder removed 1994 Surgical History tonsils removed Surgical History 1983 Surgical History D&C 09/2016 Surgical History Hysterectomy 08/2018 Hospitalization History see above [facility] Other Evaluation noteNortLateral SV Other Evaluation [facility]No [facility] [employer] Other Evaluation noteNo assessment information available [facility] Work Phone: Evaluation note* Author Magali Cardoso [facility] Authored September 09, 2024 9:2 4am The above note written by Soto Cardoso LPN, acting as human recorder, note dictated by Dr. Zay Arambula. [facility] Work Phone: History general N[facility]ative - [facility] [employer] Other Chief Complaint and Reason for Visit Chief Complaint E78.5 R53.83 r73.9 Chief Complaint Adipex Adipex adipex adipex E78.5 Reason for Visit Body mass index 29.0 -29.9, adult Obesity BMI 28.0-28.9,adult Depression Hyperglycemia Hyperlipidemia Obesity Chief Complaint 2 month f/u Amb Documentation m25.562 Reason for Visit BMI 27.0-27.9,adult Obesity Stress at home Headache Sinusitis Chief Complaint Admit Date fatigue July 07, 2024 3 :04pm wellness September 09, 2024 8:4 8am Reason for Visit Admit Date Left flank pain July 07, 2024 3 :04pm Post covid-19 condition, unspecified Angus rice 2024 3:04pm Sinusitis July 07, 2024 3 :04pm Depression September 09, 2024 8:4 8am Hypertension September 09, 2024 8:4 8am Encounter for wellness examination September 09, 2024 8:48am Chief Complaint Admit Date fatigue July 07, 2024 3 :04pm wellness September 09, 2024 8:4 8am Z00.00 September 09, 2024 8:5 3am z00.00 September 09, 2024 9:5 3am Advance Directives No Advanced Directives Records Found Advance Directive Response Recorded Date/ Time Advance Directives No February 4:24pm Summary Purpose Family History No Family History Records Found Relationship Condition Age at Onset Recorded Date/T ramez brother Unknown father Unknown family member Unknown Not Specified Hypertension Unknown Family history of mental disorder Unknown natural son Diabetes mellitus Unknown daughter High blood cholesterol Unknown Disorder of thyroid Unknown Relationship Condition Age at Onset Recorded Date/T ramez brother Unknown son Diabetes mellitus Unknown daughter High blood cholesterol Unknown Disorder of thyroid Unknown mother Hypertension Unknown Cerebrovascular accident (CVA) Unknown Family history of mental disorder Unknown Heart disease Unknown Relationship Condition Age at Onset Recorded Date/T ramez daughter High blood cholesterol Unknown Disorder of thyroid Unknown mother Hypertension Unknown Cerebrovascular accident (CVA) Unknown Family history of mental disorder Unknown son Diabetes mellitus Unknown Heart disease Unknown Additional Source Comments REASON FOR VISIT (unrecogniz ed section and content) FOLLOW UPNew Refill Request2 month Follow upClinical Acute IllnessNew Refill RequestNew Refill RequestRefillsNew Refill Requestfatigue/wants to get bloodworkClinical3 week follow up review labsfmla questionNew Refill RequestClinical Acute IllnessPER BPK- dizziness- needs work note see TECancel Appointment RequestNew Refill RequestR/S 3 month f/u dizzinessadipex #2REFILLadipexADIPEXadipex Care Teams (unrecognized sec tion and content) Team Status: Active Member Role Status Jhonny Arambula DO Primary Care Provider Active Team Status: Inactive Member Role Status Jhonny Arambula DO Primary Care Provider, Attending Provi melodie Active Team Status: Inactive Member Role Status Jhonny Arambula DO Attending Provider Active Start: June 13, 2023 End: June 13, 2023 Team Status: Inactive Member Role Status Jhonny Arambula DO Attending Provider Active Start: July 11, 2023 End: July 11, 2023 Team Status: Inactive Member Role Status Jhonny Arambula DO Primary Care Provide r, Attending Provider Active Start: August 08, 2023 End: August 08, 2023 Team Status: Inactive Member Role Status Jhonny Arambula DO Primary Care Provide r, Attending Provider Active Start: September 05, 2023 End: September 05, 2023 Team Status: Inactive Member Role Status Jhonny Arambula DO Primary Care Provide r, Attending Provider Active Start: September 09, 2023 End: September 09, 2023 Team Status: Inactive Member Role Status Jhonny Arambula DO Primary Care Provide r, Attending Provider Active Start: February 11, 2024 End: February 11, 2024 Team Status: Active Member Role Status Dates Zay Kuns , DO Primary Care Provider Active Sta rt: March 12, 2024 RICH Donahue Attending Provider Active Start: March 12, 2024 Team Status: Inactive Member Role Status Dates Zayjailyn Arambula DO Primary Care Provide r, Attending Provider Active Start: April 13, 2024 End: April 13, 2024 Team Status: Inactive Member Role Status Dates Zayjailyn Arambula , DO Primary Care Provide r, Attending Provider Active Start: July 07, 2024 End: July 07, 2024 Team Status: Inactive Member Role Status Dates Zay Cholo , DO Primary Care Provide r, Attending Provider Active Start: September 09, 2024 End: September 09, 2024 Team Status: Active Member Role Status Dates Zay Héctormabel , DO Primary Care Provide r, Attending Provider Active Start: September 09, 2024 Goals (unrecognized section and content) Goals may be documented in a n alternate section INFORMATION SOURCE (unrecogn ized section and content) DATE CREATED AUTHOR 11/23/2022 [facility] pital DATE CREATED AUTHOR AUTHOR'S ORGANIZ ATION 11/18/2023 [facility] EPIC DATE CREATED AUTHOR AUTHOR'S ORGANIZ ATION 09/30/2024 [facility] FOR RECORDS PERTAINING TO PATIENTS WHO ARE OR HAVE BEEN ENROLLED IN A CHEMICAL DEPENDENCY/SUBSTANCEABUSE PROGRAM, SOME INFORMATION MAY BE OMITTED. This clinical summary was aggregated from multiple sources. Caution should be exercised in using it in the provision of clinical care. This summary normalizes information from multiple sources, and as a consequence, information in this document may materially change the coding, format and clinical context of patient data. In addition, data may be omitted in some cases. CLINICAL DECISIONS SHOULD BE BASED ON THE PRIMARY CLINICAL RECORDS. [employer] [facility]. provides no warranty or guarantee of the accuracy or completeness of information in this document.
[2024-11-24 09:08] LABS: Age Gdln ACOG Testing Note (.); HPV Aptima Negative (Negative); IGP, Aptima HPV, rfx 16/18,45 Note (.)
== END 2024-11-19 19:55 | disposition home or self-care (01) ==
LOC: LAB 19:54
PROVIDERS: PCP Family Medicine; Visit Provider Obstetrics & Gynecology
DX: Z01.419 Encounter for gynecological examination (general) (routine) without abnormal findings (principal)
CPT/HCPCS: 87624; 88175

== ENCOUNTER 2025-04-27 14:41 | Outpatient (OUT) | payer BC, SELFPAY ==
--- OUTSIDE RECORDS SUMMARY | 2025-04-27 09:04 | XMS_ITS | Continuity of Care Document ---
Author Organization [facility] Address [address] [place] [address] Phone Care Team Providers Care Animal Shelter Clerk Name Role Phone Zay Emmanuel DO Primary Care Provider Zay Emmanuel DO Attending Provider Care Teams Patient Care Team Team Status: Active Member Role/Relationship Status Jhonny Emmanuel DO Primary Care Provider Active Visit Care Team Team Status: Inactive Member Role/Relationship Status Jhonny Emmanuel DO Primary Care Provider Active Sta rt: January 27, 2025 End: January 27gen Emmanuel DOAttrobbin ProviderActiveStart: January 27, 2025 End: January 27, 2025 Visit Care Team Team Status: Inactive Member Role/Relationship Status Jhonny Emmanuel DO Primary Care Provider Active Sta rt: February 08, 2025 End: February 08gen Emmanuel DOAttending ProviderActiveStart: February 08, 2025 End: February 08, 2025 Visit Care Team Team Status: Inactive Member Role/Relationship Status Jhonny Emmanuel DO Primary Care Provider Active Sta rt: March 16, 2025 End: March 16gen Emmanuel DOAttrobbin ProviderActiveStart: March 16, 2025 End: March 16, 2025 Patient Care Team Team Status: Inactive Member Role/Relationship Status Jhonny Emmanuel DO Primary Care Provider Active Sta rt: April 27, 2025 End: April 27gen Emmanuel DOAttending ProviderActiveStart: April 27, 2025 End: April 27, 2025 Chief Complaint and Reason for Visit Chief Complaint Admit Date per bpk work note January 27, 2025 10 :54am BP per Dr. Emmanuel/ FMLA February 08, 2025 1:56pm HTN med check March 16, 2025 2:01pm 2 month f/u April 27, 2025 1:16pm Reason for Visit Admit Date Hypertension January 27, 2025 10 :54am Viral gastroenteritis January 27, 2025 10:54am Hypertension February 08, 2025 1: 56pm Migraine February 08, 2025 1: 56pm Hypertension March 16, 2025 2:01pm Migraine March 16, 2025 2:01pm Hypertension April 27, 2025 1:16pm Migraine April 27, 2025 1:16pm Allergies, Adverse Reactions, Alerts Allergen Type Severity Reaction Last Updated Verified Status No Known Allergies Allergy Unknown April 27, 2025 1:28pmYesActive Social History Smoking Status Status Start Date End Date Date of Observa tion Ex-smoker (finding) December 08, 2024 2:36pm Observation Status Observation Response Date of Response Legal Sex Female (finding) [facility] 1965 Family History Relationship Condition Age at Onset Recorded Date/T ramez daughter High blood cholesterol Unknown Disorder of thyroidUnknownmotherHypertensionUnknownCerebrovascular accident (CVA)UnknownFamily history of mental disorderUnknownsonDiabetes mellitusUnknown Heart diseaseUnknown Problems Active Problems Problem Diagnosis/Recorded Date Onset Date Stat us Post covid-19 condition, unspecified July 07 4:32pm Unknown Active Insomnia August 07, 2023 4:15pm Unknown A ctive Other asthma August 07, 2023 4:15pm Unknown A ctive Viral gastroenteritis January 27, 2025 10:35am Unknow n Active Tension headache December 15, 2024 11:55am Unknown A ctive Depression April 30, 2017 7:36pm Unknown A ctive Migraine August 07, 2023 4:15pm Unknown A ctive Hyperglycemia August 07, 2023 4:15pm Unknown Active Hyperlipidemia August 07, 2023 4:15pm Unknown Active Somatic dysfunction of cervical region December 15, 2024 11:57am Unknown Active Stress at home August 07, 2023 4:15pm Unknown Active BMI 27.0-27.9,adult November 12, 2023 1:17pm Unknown Active Left knee pain April 10, 2024 7:30am Unknown Active Left flank pain July 07, 2024 4:53pm Unknown Active GERD (gastroesophageal reflux disease) August 07, 2023 4:15pm Unknown Active Hypertension August 07, 2023 4:15pm Unknown A ctive Obesity August 07, 2023 4:15pm Unknown A ctive Inactive/Resolved Problems Problem Diagnosis/Recorded Date Onset Date Stat us COVID May 27, 2024 11:43am Unknown Resolved Acute cough December 08, 2024 2:16pm Unknown Resol faiza Skin tag November 12, 2023 1:33pm Unknown Resolv ed Pain November 12, 2023 1:34pm Unknown Resolv ed Cough May 12, 2024 3:05pm Unknown R esolved Sinusitis July 07, 2024 4:32pm Unknown Re solved Viremia July 07, 2024 4:30pm Unknown Re solved Sore throat December 08, 2024 2:16pm Unknown Resol faiza Medications Medication Status Dose Units Route Directions Qty Days Refills S tart Date Stop Date End Date Reason(s) Instructions Adherence Albuterol Sulfate (Proair Hfa) 90 mcg/actuation HFA aerosol inhaler Discontinued 2 INH INHALATION Q6H as neede d for Shortness Of Breath 8.5 2February 2023 12:06pmApril 2024 2:04pmLisinopril 10 mg tablet Ktdaxyewnipj14OLPLEprme941Mmjx 2023 3:30pmMarch 2024 8:50am Phentermine 37.5 mg ymjfxdYtkbdjjqvzwr38.8KNNHLvuep73757Msed 2023 1:16pm February 11, 2024 2:24pmBody mass index (BMI) of 29.0 to 29.9 in adult Obesity Body mass index [BMI] 29.0-29.9, adult Obesity, unspecified1 tablet before breakfast Orally Once a dayMupirocin 2 % atyfqpyvNnjsqszycsgz4CAHNIGMSJAXBXVgtix lqjql383Rpljtt 2023 9:07amNovember 2023 3:50pmAzithromycin (Zithromax Z-Sabas) 250 mg uylsowCqolluvplgww1VF .MFCSRDL22Xvavctd 2023 11:00pmNovember 2023 3:50pmFor 250 mg dose pack: take 500 mg today (day 1), then 250 mg for 4 days (days 2-5) PO Methylprednisolone (Medrol (Sabas)) 4 mg tablets,dose zbirTejhhfpjcpud3OClrj package urbemlktca500Ieacyam 2023 11:00pmNovember 2023 3:50pmPO PER PKG DIRLisinopril 20 mg zrbxgeQuunzinphzce22LPOJAsiwb642Jwney 2024 11:19am February 02, 2025 12:50pmAlbuterol Sulfate 90 mcg/actuation HFA aerosol inhaler Zewdwmkhdmdr0KVQQAKUHOYSONN1Q as needed for Shortness Of Breath8.52April 2024 2:04pmApril 2024 5:39pmAlbuterol Sulfate 90 mcg/actuation HFA aerosol hqqqomzFifumm2FRQGAHVBHAYMBB7W as needed for Shortness Of Breath8.52April 2024 5:39pmComplies with drug therapyAzithromycin (Zithromax Z-Sabas) 250 mg lccoyqBsnpjtfsxkhx1UA.KGCTBTO28Glpo 2024 11:00pmJuly 2024 11:31amFor 250 mg dose pack: take 500 mg today (day 1), then 250 mg for 4 days (days 2-5) POBudesonide-Formoterol 160-4.5 mcg/actuation HFA aerosol inhalerDiscontinued2 PUFFINHALATIONTwice daily10.21July 2024 11:09amOctober 2024 11:30am Olmesartan 20 mg gvkigmDttjubbodtsz92XXKPRykhf295Vlhjer 2024 11:00pm March 16, 2025 2:22pmTizanidine 4 mg wtobomOwuqoi4VHFUKbmzt at bedtime as needed for muscle ncctfkybgm506Foejqb 2024 10:41amComplies with drug therapyOlmesartan 40 mg xxkdmvTjzjxbwubguz65WVXNYnhok347Rsrgsjv 2024 11:29amOctober 2024 9:45amBudesonide-Formoterol 160-4.5 mcg/actuation HFA aerosol kwcbxtjOthcmrajvoyf8BVCZXHCRTEYNNRCkyyo daily10.October 2024 11:30amOctober 2024 9:45amBudesonide-Formoterol 160-4.5 mcg/actuation HFA aerosol hjhrgjfJioeti9TPPUHGSPURKJVRMokal daily10.Oct[facility] 2024 9:45am Complies with drug therapyOlmesartan 40 mg xjssaxZbzkhy52ERIPQbuux201Asbqmxv 2024 9:45amComplies with drug therapyCitalopram (Celexa) 40 mg Tablet Qpdwwxsdoilx22WPOLXdesfKluomnti 14th, 2017 12:00amFebruary 2023 4:21pm Ibuprofen 800 mg mvutzyFxiqroevkvtz694BSHDG3N as needed for PainApril 30, 2017 12:00amFebruary 2023 4:22pmTizanidine 4 mg pcskvkIbkvwdzqrocu8YGVX BedtimeApril 30, 2017 12:00amFebruary 2023 4:22pmSumatriptan Succinate 100 mg NijntmLijtfnhoyphr5hhew pkPOAs Directed as needed for Headache April 30, 2017 12:00amMarch 2024 8:05amMeclizine 25 mg Tablet Osxvxoalbvhs87DPYVTcpyqIyymppnl 14th, 2017 12:00amNoveer 2023 3:08pm Lisinopril 10 mg QgkyduSqxxtteblzec03OQCBMqsqyDbugphxu 14th, 2017 12:00am[facility] 20[facility] 3:30pmLorazepam (Ativan) 1 mg JefyxeThmbpxkujuoh2GYPWZprlymc as needed for AnxietyApril 30, 2017 12:00amFebruary 2023 4:22pmAlbuterol Sulfate (Proair Hfa) 90 mcg/actuation Hfa Aerosol UwrethjZfziizbtevjd6AUW TPWBXEIWGPG0T as needed for Shortness Of BreathApril 30, 2017 12:00am August 08, 2023 2:16pmBudesonide-Formoterol 160-4.5 mcg/actuation HFA aerosol wpwpsomBefsnkonvnhq4DANXEQRADPHPPCJdeix dailyApril 30, 2017 12:00am May 27, 2024 11:58amDexlansoprazole (Dexilant) 60 capsule,biphase delayed oljtguAjxntdhtgbyu92KRGOTuevgKwrjyjtl 2016 12:00amFebruary 2023 4:22pmPhentermine 37.5 mg juhpjlIrxogeqsdezq60.8QFMYBkbzm19697Qfkzp 2023 12:42pmMay 2023 1:19pmBody mass index (BMI) of 29.0 to 29.9 in adult Obesity Body mass index [BMI] 29.0-29.9, adult Obesity, unspecifiedFreeTextSi tablet before breakfast Orally Once a day; Note: Source Status: Taking; Refills: 0; Qty: 30 Tablet; Provider: Cholo Sears Fluoxetine 20 mg hnlkvjTjxcycfuiwoc94HVQJZlklu669Htbpkffvy 2023 10:16am September 09, 2024 8:41amDepression Major depressive disorder, single episode, unspecified1 tablet Orally Once a day Levofloxacin 500 mg yolywmLhkihbcwsawr313ARDGDjwzw64227Yossxzir 7th, 2024 12:002023 2:25pmPrednisone 20 mg tyhfgtHsovfzzukoxc72LBGW .RAAQPTO180Lygoamek 7th, 2024 12:002023 2:25pm20 mg orally BID for five days, QD for five days;Diclofenac Sodium (Aleve (Diclofenac)) 1 % gel Gadsqanvnlel3MPORVHGTFCarg times uhxch283968Hmvqzkjr 7th, 2024 12:002023 3:08pmNirmatrelvir-Ritonavir (Paxlovid) 300 mg (150 mg x 2)-100 mg tablets,dose ykmyMfajeqjvslau1WH.FODKYUG247Vpsmqeyk 2023 12:00amJuly 07, 2024 4:30pmtake TWO 150 mg tablets of nirmatrelvir with ONE 100 mg tablet of ritonavir twice daily for 5 days POBudesonide-Formoterol 160-4.5 mcg/actuation HFA aerosol bsczbjfBklvrsrrbkob9XVHCKEZMYFEUULGortu daily10.21 May 27, 2024 11:56amMarch 2024 8:50amDoxycycline Hyclate 100 mg iqjarkzSimyhpncbyeg498WXNKHhrrw xqcax90107Oqffneq 21st, 2025 12:00amMarch 2024 8:05amtake with food and full glass of water, no dairy productsAmlodipine 2.5 mg tabletDiscontinued2.0YQZTTujfo725Eesyqo 2024 11:00pmAugust 2024 1:04pmHypertension Essential (primary) hypertensionOlmesartan 40 mg zgkqilMueayvvilzea27JGDLDwgwn25 3September 2024 11:00pmOctober 2024 11:29amAmlodipine 2.5 mg tablet Rfdqvrspxysm8HFEBRaskqElnnjb 2024 1:03pmSeptember 2024 2:28pm Hypertension Essential (primary) hypertensionIbuprofen-Acetaminophen (Dual Action Pain Reliever) 125-250 mg aigqpnOlnsfo9ZLVJFVmrdt 8 hours as neededAugust 2024 11:00pmComplies with drug therapyRizatriptan (Maxalt-Director Of Guidance) 10 mg tablet,acsyaotmbovgejWiefgz4EH.IMBKEWK991Emfaih 2024 11:00pmtake 1 tab at onset of headache; if no relief may repeat 1 tab after at least 2 hrs; max = 3 tabs/24 hr POComplies with drug therapySpironolactone 25 mg urderpPmvxqk41RLII Lhqsj127Knsjovro 2024 12:00amComplies with drug therapyFluoxetine 20 mg qvyeafGainnqefarsh01FYAJYacjqLglgqkwl 2023 12:00amMarch 2023 1:26pm FreeTextSi tablet Orally Once a day; Note: Source Status: Taking; Refills: 3; Provider: Cholo Collazo PPhentermine 37.5 mg qilyssTzwbfgbmjsmu21.5MGPODaily August 07, 2023 12:00amFebruary 2023 2:16pmFreeTextSi tablet before breakfast Orally Once a day; Note: Source Status: Taking; Refills: 0; Q ty: 30 Tablet; Provider: Cholo Collazo PCetirizine (Zyrtec) 10 mg rjbxjtQemrpd60ZI PODailyFebruary 2023 12:00amFreeTextSi tablet Orally Once a day; Note: Source Status: Taking; Provider: Cholo Collazo ( )Complies with drug therapyPhentermine 37.5 mg loeivyQlxfdviafnna56.8CRFVCyhkv31283Jnsmluaf 2023 2:15pmFebruary 2023 2:50pmBody mass index (BMI) of 29.0 to 29.9 in adult Obesity Body mass index [BMI] 29.0-29.9, adult Obesity, unspecifiedFreeTextSi tablet before breakfast Orally Once a day; Note: Source Status: Taking; Refills: 0; Qty: 30 Tablet; Provider: Cholo Sears Albuterol Sulfate (Proair Hfa) 90 mcg/actuation HFA aerosol inhalerDiscontinued2 CBQGHKFAZPVJNG1D as needed for Shortness Of Breath8.52February 2023 2:16pm August 09, 2023 12:07pmPhentermine 37.5 mg dsgmpwPgqhvrkipcud56.4WVTXUmntf06 300February 2023 2:50pmMarch 2023 1:26pmBody mass index (BMI) of 29.0 to 29.9 in adult Obesity Body mass index [BMI] 29.0-29.9, adult Obesity, unspecifiedFreeTextSi tablet before breakfast Orally Once a day; Note: Source Status: Taking; Refills: 0; Qty: 30 Tablet; Provider: Cholo Sears Phentermine 37.5 mg eigeeqUzayniuerkax07.7RZQBYprsa81923Czjpe 2023 1:24pm September 05, 2023 1:28pmBody mass index (BMI) of 29.0 to 29.9 in adult Obesity Body mass index [BMI] 29.0-29.9, adult Obesity, unspecifiedFreeTextSi tablet before breakfast Orally Once a day; Note: Source Status: Taking; Refills: 0; Qty: 30 Tablet; Provider: Cholo Sears Fluoxetine 20 mg rriowtGrgrfjuurgyh19HYLNOhtba468Nadql 2023 1:24pm[facility] 2023 1:28pmDepression Major depressive disorder, single episode, unspecified1 tablet Orally Once a day Phentermine 37.5 mg wbeqhcBivaicspyssg80.7CWQCNilrg26465Pfwfi 2023 1:27pm October 08, 2023 12:42pmBody mass index (BMI) of 29.0 to 29.9 in adult Obesity Body mass index [BMI] 29.0-29.9, adult Obesity, unspecifiedFreeTextSi tablet before breakfast Orally Once a day; Note: Source Status: Taking; Refills: 0; Qty: 30 Tablet; Provider: Cholo Sears Fluoxetine 20 mg nmjnvvLzjchcrhsnbz83JMTRGkukw521Doyou 2023 1:27pm March 12, 2024 10:16amDepression Major depressive disorder, single episode, unspecified1 tablet Orally Once a day Phentermine 37.5 mg umctamMcsuwhrrrrtv29.8DVBSOnada76299Ihf 2023 1:18pm December 13, 2023 10:21amBody mass index (BMI) of 29.0 to 29.9 in adult Obesity Body mass index [BMI] 29.0-29.9, adult Obesity, unspecifiedFreeTextSi tablet before breakfast Orally Once a day; Note: Source Status: Taking; Refills: 0; Qty: 30 Tablet; Provider: Cholo Sears Phentermine 37.5 mg teutnbKdqbwsgbmifb31.8PSVVPmyxn98579Bwdk 2023 10:21am January 08, 2024 1:17pmBody mass index (BMI) of 29.0 to 29.9 in adult Obesity Body mass index [BMI] 29.0-29.9, adult Obesity, unspecifiedFreeTextSi tablet before breakfast Orally Once a day; Note: Source Status: Taking; Refills: 0; Qty: 30 Tablet; Provider: Cholo Sears Phentermine 37.5 mg rrrzdpNqdkprwrgsgd42.9CHWXTtwah25598Nuiaci 2023 2:01pm April 23, 2024 3:50pmBody mass index (BMI) of 29.0 to 29.9 in adult Obesity Body mass index [BMI] 29.0-29.9, adult Obesity, unspecified1 tablet before breakfast Orally Once a dayAzithromycin (Zithromax Z-Sabas) 250 mg qwkyelEgymaztvvylh0BU.ZFFSECD97Qameqw 26th, 2024 11:00pm[facility] 2023 3:50pmFor 250 mg dose pack: take 500 mg today (day 1), then 250 mg for 4 days (days 2-5) POMupirocin 2 % favwnwesPhmfizbmpbwh4GXQQJH TOPICALTwice ozrjd448Evortf 26th, 2024 11:00pmAugust 2023 9:08amDiclofenac Sodium (Aleve (Diclofenac)) 1 % xaxUrftocrbmsym1ZOWJLOALPXmqr times byzoe890049 May 12, 2024 3:07pm[facility] 2024 8:04amMeclizine 25 mg tablet Qcovkyjahssj97UGKTPpsmp as needed for prn jigenvkuy005Htffzqyj 26th, 2024 3:07pm September 09, 2024 8:05amFluoxetine 20 mg uqnzhplNxwvoowavhvc85GZFZCaiucMzcba 2024 11:00pm[facility] 2024 8:05amMagnesium Gluconate 30 mg (550 mg) jrxaqvHthfednflajf28PHYZPgpyfWhrrp 2024 11:00pm[facility] 20[facility] 1:29pm Omeprazole 20 mg capsule,delayed release(DR/EC)Cbskht87WJLBJteesJeidq 2024 11:00pmComplies with drug therapyFluoxetine (Prozac) 40 mg capsuleDiscontinued 85AEVZNssno925Vwxvt 2024 11:00pmJuly 2024 11:53amLisinopril 20 mg ohdwtdJtkljboedpws26FFORZteku553Jugyv 2024 8:45amApril 2024 11:19am Budesonide-Formoterol 160-4.5 mcg/actuation HFA aerosol kapabnzMpqssazupzda5NLZG INHALATIONTwice daily10.21Mar 2024 8:49amJuly 2024 11:09am B.Ilj-Jgx-Pekss-Jam-Hhje-Zmymi (Black Cohosh Menopause Complex) 20-250-50(d)/20 -200-10 mg (n) tablets, sequentialDiscontinuedEACHPOJune 2024 11:00pm April 27, 2025 1:29pmFluoxetine 20 mg mofzrhqPtyghq86FUXXUydqt273Tovi 2024 11:00pmComplies with drug therapyTizanidine 4 mg kdwbztRyufdieqcdac4LRJU Daily at bedtime as needed for muscle seffsorytb755Fsxm 2024 11:00pmAugust 2024 10:41am Immunizations Immunization Event Date Not Given Reason Dose Number Flight 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 Lot Number Reason(s) Given Vaccine Information Statement (VIS) Detail Administration Location COVID-19 mRNA, Comirnaty (SGB) September 21 COVID-19 mRNA, Comirnaty (SGB)October 12OVID-19 mRNA, Comirnaty (SGB)June 14, 2021Trivalent Influenza VaccineApril 2018Patient Refused Vital Signs Vital Reading Result Reference Range Collection Date/Time Height 62 [in_i] January 27, 2025 10:89szBravic84.19 kgAugust 2024 10:28amBody Temperature 98.2 [degF]97.6-99.0August 2024 10:28amHeart Rate71 /zeo85-887Wklhrx 2024 10:28amRespiratory rate18 /vef90-46Grtakv 2024 10:28amOxygen saturation by Pulse %95-100August 2024 10:28amBP Ybxrmpdq407 mm[Hg]100-140August 2024 10:28amBP Hzigucrcv40 mm[Hg]60-100August 2024 10:28amBMI (Body Mass Index)32.7 kg/u9Mxdcrt 2024 10:00oaXmybec42 [in_i]February 08, 2025 1:84khZhligw18.64 kgAugust 2024 1:05pmHeart Rate87 /cep52-658Mgqapy 2024 1:05pmRespiratory rate16 /qyx01-05Obfrbn 2024 1:05pmOxygen saturation by Pulse trotiuny18 %95-100Augus2024 1:05pmBP Antbeafk869 mm[Hg]100-140Au2024 1:13pmBP Pfbyzyqku78 mm[Hg]60-100 February 08, 2025 1:13pmBMI (Body Mass Index)32.9 kg/e1Kseiff2024 1:05pm Bpcdqb23 [in_i]March 16, 2025 2:87fxKzmnqk01.10 kgSept2024 2:13pmHeart Rate86 /ldx92-637Omguuyxhc 30th, 2025 2:13pmRespiratory rate16 /min 12-24March 16, 2025 2:13pmOxygen saturation by Pulse nayhpkqc47 %95-100 March 16, 2025 2:13pmBP Jjgodazj800 mm[Hg]100-140Sept2024 2:13pmBP Invguokur32 mm[Hg]60-100Se2024 2:13pmBMI (Body Mass Index)33.0 kg/q0Vmwfxqorx2024 2:40fiVdgzyx20 [in_i]April 27, 2025 1:98fxDbkiha40.55 kgApril 27, 2025 1:32pmHeart Rate80 /tjw68-036KrjczalcApril 27, 2025 1:32pmRespiratory rate16 /edz74-00GgbcxothApril 27, 2025 1:32pmOxygen saturation by Pulse mqpmzwla75 %95-100April 27, 2025 1:32pmBP Yxyebgwh629 mm[Hg]100-140April 27, 2025 1:32pmBP Pnxnqwvor90 mm[Hg]60-100April 27, 2025 1:32pmBMI (Body Mass Index)33.3 kg/h6OqyqajatApril 27, 2025 1:32pm Advance Directives Advance Directive Response Recorded Date/ Time Advance Directives No December 08 1:36pm Insurance Providers Guarantor Annabelle Macias Address [address] [place] [id number] Info.Home Phone: Coverage Status Update:2024 Payer Group Member ID Coverage Type Subscriber Relationship to Subscriber Effective Date Expiration Date Gerry SHOOK Id: [id number] Liebold , D Id: [id number] [address] [place] [id number] Home Phone: Email: [email or web address] Encounters Encounter Location(s) Arrival/Admit Date Discharge/Departure Date Discharge/Departure Disposition Provider(s) Departed Physician/ Provider Office Visit -[facility] January 27, 2025 10:54am January 27, 2025 11:47am Discharged to home care or self care (routine discharge) Renu Howard DO Departed Physician/ Provider Office Visit -[facility] February 08, 2025 1:56pm February 08, 2025 2:51pm Discharged to home care or self care (routine discharge) Renu Howard DO Departed Physician/ Provider Office Visit -[facility] March 16, 2025 2:01pm March 16, 2025 3:29pm Discharged to home care or self care (routine discharge) Renu Howard DO Departed Physician/ Provider Office Visit -[facility] April 27, 2025 1:16pm April 27, 2025 2:03pm Discharged to home care or self care (routine discharge) Renu Howard DO Recent Diagnosis Onset Date Admit Date Hypertension Unknown January 27 10:54am Viral gastroenteritis Unknown January 10:54am Hypertension Unknown February 08 1:56pm Migraine Unknown February 08 1:56pm Hypertension Unknown March 16, 2025 2:01pm Migraine Unknown March 16, 2025 2:01pm Hypertension Unknown April 27 025 1:16pm Migraine Unknown April 27 025 1:16pm Assessments Author Elodia Castle [facility] 2024 10:22amSooner if needed, the ER if concerns,The above note written by Elodia Castle LPN acting as human recorder, note dictated by Dr. Zay Emmanuel Author Franny [facility]varado [facility] 20[facility] 2:27pmThe above note written by RICH Cai acting as human recorder, note dictated by Dr. Zay Emmanuel. Author Franny Alvarado [facility] 2024 1:38pmThe above note written by RICH Cai acting as human recorder, note dictated by Dr. Zay Emmanuel. Plan of Treatment Author Elodia Castle [facility] 2024 10:53amSymptoms appear to be consistent with a viral GI bug but seem to be resolving. Encouraged adequate fluid intake and note provided for 01/25-01/31 to allow her time to rest and recover. Blood pressure is elevated today during check in and seems to be trending up recently. Patient does also voice an increase in headaches therefore I did suggest adding Amlodipine 2.5mg to the Lisinopril daily. All questions, concerns, positive, and negative effects reviewed. Patient is in agreement. Rx escribed. Author Franny Alvarado [facility] 2024 2:26pmDue to bilateral lower extremity edema I recommend the patient stop Amlodipine, I advise it may take a week or two for edema and erythema to fully resolve.I advise she could apply topical Cortisone cream if needed. I recommend she avoid crossing her legs and try to elevate her legs when possible. I will instead increase Olmesartan 20 mg to 40 mg daily. Patient encouraged to continue keeping a diary of her blood pressure. We may need to add an additional medication if blood pressure findings remain elevated. We will continue to monitor. Migraine headaches have been less intense since her last office therefore she has not needed to try Maxalt . Patient advised to keep the medication and use as needed. Should Maxalt fail we may need to consider alternatives. Author Riana Yun [facility] 2024 1:46pmIn office BP reading is improved from previous. Home BP readings have been elevated upon review of the log but I did have my nursing staff check patient BP using her home cuff for comparison and the home cuff reading was much higher than the manual obtained in my office today. Encouraged to replace BP monitor and use large cuff which does fit the arm better. Keep track of the BP's as you have been and I have educated her to continue with the current medication regimen at this time. May need to adjust medication further if BP remains elevated. No increased cough or edema to report. Patient reports that she has been waking up consistently with headaches. Over the past few days the headaches are not as severe but did miss work on 02/02 through 02/05 because of this. She has been on imitrex for years and I do want to change this to Maxalt CASING MAN. DC Imitrex. Also take the tizanidine before bedtime since you are waking up with these headaches as there may be as muscle contraction component triggering these as well. If this does not seem to control headaches then I may need to change to Ubrelvy or Nurtec. I will provide FMLA to cover the 4 days and she understands that normally headache coverage is a day at the most 1 -2 times a month. Intermittent leave will be added to the FMLA as requested. Author Franny Alvarado [facility] 2024 2:01pmHome blood pressure findings are borderline elevated upon review of her daily log. Edema has resolved since stopping Amlodipine. I recommend the patient continue Olmesartan 40 mg and I will add a dieretic that should help lower these readings.Positive ,negative and instructions provided. Encouraged to continue checking home blood pressure readings and keep a log of the findings and I will see her back in two months to re-evaluate. Patient is to keep Maxalt on hand to use as needed. Future Tests Future scheduled test information is unavailable Pending Tests Pending diagnostic test information is unavailable Future Visits Future appointment information is unavailable Future Procedures Future procedure information is unavailable Future Medications Future medication information is unavailable Patient Instructions Patient instructions are unavailable
--- OUTSIDE RECORDS SUMMARY | 2025-04-27 14:43 | XMS_ITS | Clinical Summary ---
Author Organization [facility] Address [address] [place] [address] Care Team Providers Care Marketing Database Analyst Name Role Phone Zay Arambula DO Primary Care Provider [phone] Allergies No known active allergies Medications MedicationSigDispense QuantityRefillsLast FilledStart DateEnd DateStatus lisinopril 10 MG tablet Take 20 mg by mouth DailyActive budesonide-formoterol (Symbicort) 80-4.5 MCG/ACT inhaler Inhale 2 puffs in the morning and 2 puffs before bedtime. Rinse mouth with water after use to reduce aftertaste and incidence of candidiasis. Do not swallow.. Active albuterol HFA 90 mcg/act inhaler Inhale 2 puffs every 4 (four) hours if needed for wheezing.Active cetirizine (ZyrTEC) 10 MG tablet Daily08/07/2023ctive FLUoxetine (PROzac) 20 MG tablet Take 20 mg by mouth Daily09/11/2023ctive phentermine (Adipex-P) 37.5 MG tablet TAKE 1 TABLET BY MOUTH BEFORE BREAKFASTActive SUMAtriptan (Imitrex) 100 MG tablet Take 100 mg by mouth 2 (two) times a day as omeyio8302/18/2023ctive Multiple Vitamins-Minerals (VITAMINS TO GO WOMEN PO) Take by mouth SHIVAM Vaginal moisture Take 2 capsules a dayActive omeprazole OTC (PriLOSEC OTC) 20 MG EC tablet Take 20 mg by mouth in the morning. Take before meals. Do not crush, chew, or split.Active MAGNESIUM GLYCINATE PO Take by mouth Take 2 gummies a dayActive Specialty Vitamins Products (MENOPAUSE RELIEF PO) Take by mouth SHIVAM Take 2 gummiesActive Specialty Vitamins Products (MENOPAUSE RELIEF PO) Take by mouthActive Active Problems ProblemNoted DateDiagnosed DatePain in female genitalia on ndvkkhlomgj06/03/2024 Postmenopausal state11/18/2023Well woman exam with routine gynecological exam 11/18/2023 Family History Medical HistoryRelationNameCommentsHypertensionMotherRelationNameStatusComments Brother 1AliveBrother 2DeceasedDaughter 1AliveDaughter 2AliveFatherDeceased MotherAliveSonAlive Social History Tobacco UseTypesPacks/DayYears UsedDateSmoking Tobacco: FormerCigarettes Smokeless Tobacco: Never Tobacco Cessation:Counseling Given: Not Answered Alcohol UseStandard Drinks/WeekCommentsYes8 (1 standard drink = 0.6 oz pure alcohol)CommentsUnknownSex and Gender InformationValueDate RecordedSex Assigned at XhnodZzwnmk74/06/2023 8:49 AM EDTLegal XkbPqzvho65/15/2023 11:47 PM EDTGender HqarvlkaSbzwjl85/06/2023 8:49 AM EDTSexual OrientationStraight 10/20/2022 8:49 AM EDT Last Filed Vital Signs Vital SignReadingTime TakenCommentsBlood Pijjtvac342/78011/19/2024 9:24 AM EDT Pulse--Temperature--Respiratory Rate--Oxygen Saturation--Inhaled Oxygen Concentration--Wbhmxu08.5 kg (173 lb)11/19/2024 9:24 AM GHWYfyqji468.5 cm (5' 2 )11/18/2023 9:01 AM EDTBody Mass Index31.64011/18/2023 9:01 AM EDT Plan of Treatment DateTypeDepartmentCare Team (Latest Contact Info)Qmbkcrwxxjq34/16/2026 10:00 AM EDTOffice Visit [facility] [address] [place] [address] Paddy Ronquillo, [address] [place], [place] [id number] Health MaintenanceDue DateLast DoneCommentsCT Skjsaezsthya46/31/1967Colonoscopy 1966FIT1966FOBT1966 1864Zzftrynxgfvwi54/31/7017Aorlhjxxv17/10/2025 12/25/2023OVID-19 Vaccine ( season), 10/12/2020, 09/21/2020Influenza Vaccine (#1)5Colorectal Cancer Zsorlpgyk97/07/2026 FIT-DNA, 04/28/2018Pap Smear/ervical Cancer Ufbnadlva70/17/2028HPV/Cnqsng433Pneumococcal Vaccine: Pediatrics (0 to 5 Years) and At-Risk Patients (6 to 64 Years)Aged OutNo longer eligible based on patient's age to complete this topic Procedures Procedure NamePriorityDate/TimeAssociated DiagnosisCommentsMM TOMOSYNTHESIS SCREENING BI12/25/2023 7:39 AM EDT THINPREP PAP AND HPV MRNA E6/E7 W/RFL HPV 16,18/82Ltmzwab30/17/2023 1:54 PM EDT Well woman exam with routine gynecological exam PAP XLYSVWbzuvqr22/24/2022 12:00 AM EDTfrom Last 3 Months or Most Recently Relevant to Health Maintenance Results * MM TOMOSYNTHESIS SCREENING BI (12/25/2023 7:39 AM EDT)Anatomical Region LateralityModalityOtherSpecimen (Source)Anatomical Location / Laterality Collection Method / VolumeCollection TimeReceived Time12/25/2023 7:39 AM EDT Narrative 12/25/2023 7:40 AM EDT [facility] ?[address] ? [place] [address] ? Mammography Report ? Signed ? Patient: LIEBOLD,KERRY D ?MR#: [id number] ?? : 1965 ?Acct:[id number] ?? Age/Sex: 58 / F ?ADM Date: 12/24/23 ?? Loc: MAMMO ? Attending Dr: Paddy Ronquillo D.O. ? Ordering Physician: Paddy Ronquillo D.O. ?Results: ? Date of Service: 12/24/23 ?Follow Up: ? Procedure(s): MM tomosynthesis screening BI ?? Accession Number(s): [id number] ? cc: Paddy Ronquillo D.O.; IESHA ARAMBULA ? Patient Name: ? KERRY LIEBOLD ? MR#: [id number] ? : 1965 ? Exam Date: 12/24/2023 ?? Ordering Doctor: DR Paddy Ronquillo . ? RADIOLOGY REPORT ? PROCEDURE: ? MM TOMOSYNTHESIS SCREENING BI ? COMPARISON: ? MM TOMOSYNTHESIS SCREENING BI, 12/20/2022. ??MG MAMM SCREEN 3D ?? BARBARA CAD, 11/09/2021. ? INDICATIONS: ? Screening ? Calculator Name ? NCI Breast Cancer Risk Assessment Tool ?? 5 Year Breast Cancer Risk ? 0.90% ?? Lifetime Breast Cancer Risk ? 5.70% ?? Personal Breast Cancer ?No ?? Personal Ovarian Cancer ? No ?? Treatments ? None ?? Family Cancers ? Father with lung/brain cancer at age 71; Uncle-paternal ?? with throat cancer at age ??75. ? LOCATION: ? [facility] ? BREAST COMPOSITION: ? There are scattered areas of fibroglandular density. ? FINDINGS: ? DIAGNOSTIC CATEGORY 2--BENIGN FINDING. NO CHANGE FROM COMPARISON. ? Scattered benign-appearing nodules are present. ??Scattered benign-appearing ?? calcifications are present. ??Scattered benign-appearing lymph nodes are ?? present. ? RIGHT BREAST: ??No significant suspicious finding. ? LEFT BREAST: ??No significant suspicious finding. ? RECOMMENDATIONS: ? ROUTINE MAMMOGRAM AND CLINICAL EVALUATION IN 12 MONTHS. ? PLEASE NOTE: ??A NORMAL MAMMOGRAM DOES NOT EXCLUDE THE POSSIBILITY OF BREAST ?? CANCER. ??A CLINICALLY SUSPICIOUS PALPABLE LUMP SHOULD BE BIOPSIED. ? Dictated by: Jostin Alexander MD on 12/25/2023 at 07:38 ? Approved by: Jostin Alexander MD on 12/25/2023 at 07:39 ? Dictated By: ?Jostin Alexander M.D. ? Signed By: ?12/25/23 0740 ? DD/ 0739 ? TD/TT: ? Robotics Engineer: Procedure Note Radiology, Radiologist, MD - 12/25/2023 [place] [address] Mammography Report Signed Patient: KERRY LOPEZ DMR#: [id number] : 1965Acct:[id number] Age/Sex: 58 / FADM Date: 12/24/23 Loc: MAMMO Attending Dr: Paddy Ronquillo D.O. Ordering Physician: Paddy Ronquillo D.O.Results: Date of Service: 12/24/23Follow Up: Procedure(s): MM tomosynthesis screening BI Accession Number(s): [id number] cc: Paddy Ronquillo D.O.; IESHA ARAMBULA Patient Name: KERRY LOPEZ MR#: [id number] : 1965 Exam Date: 12/24/2023 Ordering Doctor: DR Paddy Ronquillo . RADIOLOGY REPORT PROCEDURE: MM TOMOSYNTHESIS SCREENING BI COMPARISON: MM TOMOSYNTHESIS SCREENING BI, 12/20/2022. MG MAMM XHQUXO0C BARBARA CAD, 11/09/2021. INDICATIONS: Screening Calculator Name NCI Breast Cancer Risk Assessment Tool 5 Year Breast Cancer Risk 0.90% Lifetime Breast Cancer Risk 5.70% Personal Breast Cancer No Personal Ovarian Cancer No Treatments None Family Cancers Father with lung/brain cancer at age 71; Uncle-paternal with throat cancer at age 75. LOCATION: [facility] BREAST COMPOSITION: There are scattered areas of [...] By: Jostin Alexander M.D. Signed By:12/25/2340 DD/ TD/TT: Robotics Engineer: Authorizing ProviderResult TypeResult StatusCorey Yg DOCLINISYNC IMAGINGFinal Result * THINPREP PAP AND HPV MRNA E6/E7 W/RFL HPV 16,18/45 (12/31/2022 1:54 PM EDT) Narrative Authorizing ProviderResult TypeResult StatusCorey Yg DOLAB BLOOD ORDERABLES Final ResultPerforming OrganizationAddressCity/State/ZIP CodePhone Number EXTERNAL LAB * Pap Smear (11/07/2021 12:00 AM EDT)Specimen (Source)Anatomical Location / LateralityCollection Method / VolumeCollection TimeReceived TimeSwabCervical swab / Unknown Narrative Authorizing ProviderResult TypeResult StatusHistorical Provider KIRSTEN CYTOLOGY ORDERABLESFinal ResultPerforming OrganizationAddressCity/State/ZIP CodePhone Number EXTERNAL LAB from Last 3 Months or Most Recently Relevant to Health Maintenance Insurance Care Teams Team MemberRelationshipSpecialtyStart DateEnd Date Zay Arambula DO [facility]11/13/22
--- OUTSIDE RECORDS SUMMARY | 2025-04-27 14:43 | XMS_ITS | Encounter Summary ---
Author Organization [facility] Address [address] [place] [address] Care Team Providers [employer] Sales Consultant Name Role Phone Héctormabel Zay Renu ANDREW Primary Care Provider [phone] Encounter Details DateTypeDepartmentCare Team (Latest Contact Info)Mbhjktmcgij89/10/2024linisync Result Encounter [facility] External Department Unsolicited Paddy Ronquillo DO [address] [place], [place] [id number] Social History Tobacco UseTypesPacks/DayYears UsedDateSmoking Tobacco: FormerCigarettes Smokeless Tobacco: NeverAlcohol UseStandard Drinks/WeekCommentsYes8 (1 standard drink = 0.6 oz pure alcohol)CommentsUnknownSex and Gender Information ValueDate RecordedSex Assigned at RgxnwVhfphi98/06/2023 8:49 AM EDTLegal Sex Jkqkhm2208/29/2022 11:47 PM EDTGender ZqpmgjksXtasov13/06/2023 8:49 AM EDTSexual KxabygebopfNbnbingo43/06/2023 8:49 AM EDTdocumented as of this encounter Plan of Treatment DateTypeDepartmentCare Team (Latest Contact Info)Mxuvbazmvny67/16/2026 10:00 AM EDTOffice Visit [facility] [address] [place] [phone] Paddy Ronquillo DO [address] [place] [address] documented as of this encounter Procedures Procedure NamePriorityDate/TimeAssociated DiagnosisCommentsMM TOMOSYNTHESIS SCREENING BI12/25/2023 7:39 AM EDT documented in this encounter Results * MM TOMOSYNTHESIS SCREENING BI (12/25/2023 7:39 AM EDT)Anatomical Region LateralityModalityOtherSpecimen (Source)Anatomical Location / Laterality Collection Method / VolumeCollection TimeReceived Time12/25/2023 7:39 AM EDT Narrative 12/25/2023 7:40 AM EDT [facility] ?[address] ? [place] [address] ? Mammography Report ? Signed ? Patient: LIEBOLD,KINZA D ?MR#: [id number] ?? : 1965 ?Acct:[id number] ?? Age/Sex: 58 / F ?ADM Date: 12/24/23 ?? Loc: MAMMO ? Attending Dr: Paddy Ronquillo D.O. ? Ordering Physician: Paddy Ronquillo D.O. ?Results: ? Date of Service: 12/24/23 ?Follow Up: ? Procedure(s): MM tomosynthesis screening BI ?? Accession Number(s): [id number] ? cc: Paddy Ronquillo D.O.; IESHA EMMANUEL ? Patient Name: ? KINZA LOPEZ ? MR#: [id number] ? : 1965 ? Exam Date: 12/24/2023 [...] at age ??76. ? LOCATION: ? [facility] ? BREAST COMPOSITION: ? There are scattered [...] 0740 ? DD/ 0739 ? TD/TT: ? Associate Professor Of Theology: Procedure Note Radiology, Radiologist, MD - 12/25/2023 [place] [address] Mammography Report Signed Patient: KINZA LOPEZ [facility]#: [id number] : 1965Acct:[id number] Age/Sex: 58 / FADM Date: 12/24/23 Loc: MAMMO Attending Dr: Paddy Ronquillo D.O. Ordering Physician: Paddy Ronquillo D.O.Results: Date of Service: 12/24/23Follow Up: Procedure(s): MM tomosynthesis screening BI Accession Number(s): [id number] cc: Paddy Ronquillo D.O.; IESHA EMMANUEL Patient Name: KINZA LOPEZ MR#: [id number] : 1965 Exam Date: 12/24/2023 Ordering Doctor: DR Paddy Ronquillo . RADIOLOGY REPORT PROCEDURE: MM TOMOSYNTHESIS SCREENING BI COMPARISON: MM TOMOSYNTHESIS SCREENING BI, 12/20/2022. MG MAMM UOVRUL3D BARBARA CAD, 11/09/2021. INDICATIONS: Screening Calculator Name NCI Breast Cancer Risk Assessment Tool 5 Year Breast Cancer Risk 0.90% Lifetime Breast Cancer Risk 5.70% Personal Breast Cancer No Personal Ovarian Cancer No Treatments None Family Cancers Father with lung/brain cancer at age 71; Uncle-paternal with throat cancer at age 75. LOCATION: [facility] BREAST COMPOSITION: There are scattered areas [...] Alexander M.D. Signed By:12/25/2340 DD/ 8 TD/TT: Associate Professor Of Theology: Authorizing ProviderResult TypeResult StatusCorey Yg DOCLINISYNC IMAGINGFinal Result documented in this encounter Visit Diagnoses Not on filedocumented in this encounter Care Teams Team MemberRelationshipSpecialtyStart DateEnd Date Zay Emmanuel DO [facility]11/13/22documented as of this encounter
--- OUTSIDE RECORDS SUMMARY | 2025-04-27 14:43 | XMS_ITS | Clinical Summary ---
Author Organization [facility] Address [address] [place] [address] Care Team Providers Care Engineering Group Manager Name Role Phone Unavailable Primary Care Provider Unavailabl e Social History Tobacco UseTypesPacks/DayYears UsedDateSmoking Tobacco: Never Assessed CommentsUnknownSex and Gender InformationValueDate RecordedSex Assigned at Not on fileLegal YidSutzrw39/09/2024 11:02 AM EDTGender IdentityNot on file Sexual OrientationNot on file Plan of Treatment Not on file
--- NOTE | 2025-04-27 14:44 | MM_ITS ---
Patient Name: KINZA GONZALEZ MR#: [id number] : 1965 Exam Date: 04/27/2025 Ordering Doctor: DR MARIANA REDD . RADIOLOGY REPORT PROCEDURE: MM TOMOSYNTHESIS SCREENING BI COMPARISON: MM TOMOSYNTHESIS SCREENING BI, 12/24/2023. MM TOMOSYNTHESIS SCREENING BI, 12/20/2022. MG MAMM SCREEN 3D BARBARA CAD, 11/09/2021. MG MAMM BARBARA SCRN W CAD DIG, 03/15/2015. INDICATIONS: Screening Calculator Name NCI Breast Cancer Risk Assessment Tool 5 Year Breast Cancer Risk 1.00% Lifetime Breast Cancer Risk 5.60% Personal Breast Cancer No Personal Ovarian Cancer No Treatments None Family Cancers Father with lung/brain cancer at age 71; Uncle-paternal with throat cancer at age ~75. LOCATION: [facility] BREAST COMPOSITION: There are scattered areas of fibroglandular density. FINDINGS: RIGHT BREAST: No significant suspicious finding. Similar focal asymmetries are noted. LEFT BREAST: No significant suspicious finding. DIAGNOSTIC CATEGORY 2--BENIGN FINDING. NO CHANGE FROM COMPARISON. RECOMMENDATIONS: ROUTINE MAMMOGRAM AND CLINICAL EVALUATION IN 12 MONTHS. Dictated by: Kameron Thompson MD on 04/27/2025 at 17:28 Approved by: Kameron Thompson MD on 04/27/2025 at 17:44
--- OUTSIDE RECORDS SUMMARY | 2025-04-27 14:47 | XMS_ITS | CCD ---
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 Name Role Phone Zay Arambula Unavailable DO Zay Arambula Primary Care Provider Cholo DO Zay Attending Provider [phone] ZAY ARAMBULA Primary Care Unavailable YG ., DR PEÑA Attending Unavailable YG ., DR PEÑA Consulting Unavailable YG ., DR PEÑA Admitting Unavailable DO Zay Arambula Primary Care Provider DO Zay Arambula Attending Provider HéctorsDO Collazo Primary Care Provider [phone] DO aZy Arambula Attending Provider Zay Arambula DO Primary Care Provider Zay Arambula DO Attending Provider [phone] Cholo, Zay Primary Care Unavailable Cholo, Zay Attending Unavailable Kuns, Zay Admitting Unavailable KunsZay Attending Unavailable Kuns, Zay Admitting Unavailable Kuns, Zay Primary Care Unavailable Kuns, Zay Attending Unavailable Kuns, Zay Admitting Unavailable Kuns, Zay Primary Care Unavailable Kuns, Zay Attending Unavailable Kuns, Zay Admitting Unavailable Kuns, Zay Primary Care Unavailable MARIANA RONQUILLO Attending Unavailable Zay Arambula DO Primary Care Provider Zay Arambula DO Primary Care Provider [phone] Mariana Ronquillo DO Attending Provider [phone] Zay Arambula DO Attending Provider Zay Arambula DO Primary Care Provider Zay Arambula DO Attending Provider Medications Current Medications MedicationDrug Class(es)DatesSig (Normalized)Sig (Original)acetaminophen 250 mg / ibuprofen 125 mg oral tablet (2 sources)Nonsteroidal Anti-inflammatory DrugStart: 14-78-1780phcs 1 tablet by mouth every eight hours as neededIbuprofen-Acetaminophen (Dual Action Pain Reliever) 125-250 mg tablet Active 1 TAB PO Every 8 hoursas needed February 08, 2025 12:00am Complies with drug therapyB.Dtg-Eul-Zhwed-Yrb-Egqf-Gdqid (Black Cohosh Menopause Complex) 20-250-50(d)/20 -200-10 mg (n) tablets, sequential (4 sources)Start: 12-15-2024.Yhf-Tcs-Paxnw-Zkj-Etei-Vhgjx (Black Cohosh Menopause Complex) 20-250-50(d)/20 -200-10 mg (n) tablets, sequential Active EACH PO December 15, 2024 12:00am Complies with drug therapycetirizine hydrochloride 10 mg oral tablet (20 sources)Histamine-1 Receptor AntagonistStart: 62-46-8325pwkhoinflo (ZyrTEC) 10 MG tablet Daily 08/07/2023 Activetake 1 tablet by mouth every twenty-four hoursZyrTEC Allergy 10 MG 1 tablet Orally Once a day ActiveFLUoxetine 20 mg oral capsule (20 sources)Serotonin Reuptake InhibitorStart: 95-71-7601xssw 1 capsule by mouth once dailyFluoxetine 20 mg capsule Active 20 MG PO Daily December 15, 2024 12:00am Complies with drug therapyStart: 09-09-2024 End: 74-73-8031xovk 1 capsule by mouth once dailyFluoxetine 20 mg capsule Discontinued 20 MG PO Daily September 09, 2024 12:00am September 09, 2024 9:05am Start: 09-09-2024 End: 93-83-6683mwlq 1 capsule by mouth once dailyFluoxetine (Prozac) 40 mg capsule Discontinued 40 MG PO Daily September 09, 2024 12:00am December 12:53pmStart: 08-07-2023 End: 02-89-9537evmd 1 tablet by mouth once dailyFLUoxetine (PROzac) 20 MG tablet Take 20 mg by mouth Daily 09/11/2023 ActiveStart: 77-49-1644xqch 1 tablet by mouth every twenty-four hoursFLUoxetine HCl 20 MG 1 tablet Orally Once a day for 30 days Apr, Activemagnesium gluconate 550 mg oral tablet (7 sources)Start: 56-08-3583kxyb 1 tablet by mouth once dailyMagnesium Gluconate 30 mg (550 mg) tablet Active 30 MG PO Daily September 09, 2024 12:00am Complies wi th drug therapyMagnesium glycinate (3 sources)MAGNESIUM GLYCINATE PO Take by mouth Take 2 gummies a day Active Multiple Vitamins-Minerals (VITAMINS TO GO WOMEN PO) (3 sources)take 2 capsules by mouth once dailyMultiple Vitamins-Minerals (VITAMINS TO GO WOMEN PO) Take by mouth SHIVAM Vaginal moisture Take 2 capsules a day Activeolmesartan medoxomil 40 mg oral tablet (3 sources)Angiotensin 2 Receptor BlockerStart: 87-85-2534uexd 1 tablet by mouth once dailyOlmesartan 40 mg tablet Active 40 MG PO Daily March 16, 2025 12:00am Complies with drug therapyStart: 02-02-2025 End: 72-16-6921pmir 1 tablet by mouth once dailyOlmesartan 20 mg tablet Discontinued 20 MG PO Daily February 02, 2025 12:00am March 16, 2025 3:22pmomeprazole 20 mg delayed release oral capsule (10 sources)Proton Pump InhibitorStart: 02-65-3687uazl 1 capsule by mouth once dailyOmeprazole 20 mg capsule,delayed release(DR/EC) Active 20 MG PO Daily September 09, 2024 12:00am Complies with drug therapytake 1 tablet by mouth before mealtimeomeprazole OTC (PriLOSEC OTC) 20 MG EC tablet Take 20 mg by mouth in the morning. Take before meals. Do not crush, chew, or split. ActiveProAir HFA 108 (90 Base) MCG/ACT (18 sources)Start: 06-58-1552ueus 2 puff(s) by inhalation every four hours as neededProAir HFA 108 (90 Base) MCG/ACT 2 puffs as needed Inhalation every 4 hrs Jul, ActiveStart: 30-69-3768yhww 2 puff(s) by inhalation every four hours as neededProAir HFA 108 (90 Base) MCG/ACT 2 puffs as needed Inhalation every 4 hrs prn Jul, Activerizatriptan 10 mg disintegrating oral tablet (2 sources)Serotonin-1b and Serotonin-1d Receptor AgonistStart: 39-62-5103pndv 1 tablet by mouth every two hoursRizatriptan (Maxalt-[employer]) 10 mg tablet,disintegrating Active 0 PO .COMPLEX February 08, 2025 12:00am take 1 tab at onset of headache; if no relief may repeat 1 tab after at least 2 hrs; max = 3 tabs/24 hr PO Complies with drug therapySpecialty Vitamins Products (MENOPAUSE RELIEF PO) (6 sources)Specialty Vitamins Products (MENOPAUSE RELIEF PO) Take by mouth SHIVAM Take 2 gummies ActiveSpecialty Vitamins Products (MENOPAUSE RELIEF PO) Take by mouth ActiveSUMAtriptan 100 mg oral tablet (20 sources)Serotonin-1b and Serotonin-1d Receptor AgonistStart: 11-26-2016 End: 07-42-6435hdga 1 tablet by mouth twice daily as neededSUMAtriptan (Imitrex) 100 MG tablet Take 100 mg by mouth 2 (two) times a day as needed 02/18/2023 Ac tivetiZANidine 4 mg oral tablet (20 sources)Central alpha-2 Adrenergic AgonistStart: 12-15-2024 End: 96-65-2670grec 1 tablet by mouth once daily at bedtime as neededTizanidine 4 mg tablet Active 4 MG PO Daily at bedtime as needed for muscle spasticity February 09, 2025 11:41am Complies with drug therapyStart: 04-30-2017 End: 88-39-9225ppdo 1 tablet by mouth at bedtimeTizanidine 4 mg tablet Discontinued 4 MG PO Bedtime April 30, 2017 1:00am August 07, 2023 5 :22pmStart: 04-30-2017 End: 81-93-9617yand 1 tablet by mouth at bedtimeTizanidine 4 mg tablet Discontinued 4 MG PO Bedtime April 30, 2017 1:00am August 07, 2023 5 :22pm Completed/Discontinued Medications MedicationDrug Class(es)DatesSig (Normalized)Sig (Original)[id number] 200 actuat albuterol 0.09 mg/actuat metered dose inhaler (20 sources)beta2-Adrenergic AgonistStart: 66-66-9066nnal 2 puff(s) by inhalation every four hours as neededProAir HFA 108 (90 Base) MCG/ACT 2 puffs as needed Inhalation every 4 hrs prn Jul, ActiveStart: 98-31-1079Wojtw: 04-30-2017 End: 40-36-7360Finkjkcqo Sulfate (Proair Hfa) 90 mcg/actuation HFA aerosol inhaler Discontinued 2 INH INHALATION Q6H as needed for Shortness Of Breath 8.5 August 08, 2023 3:16pm August 09, 2023 1:07pmtake 2 puff(s) by inhalation every four hours for wheezingalbuterol HFA 90 mcg/act inhaler Inhale 2 puffs every 4 (four) hours if needed for wheezing. ActiveamLODIPine 2.5 mg oral tablet (4 sources)Dihydropyridine Calcium Channel BlockerStart: 02-08-2025 End: 49-28-8817ssau 2 tablets by mouth once dailyAmlodipine 2.5 mg tablet Discontinued 5 MG PO Daily February 08, 2025 2:03pm March 16, 2025 3:28pm Start: 01-27-2025 End: 99-48-7397pdzz 1 tablet by mouth once dailyAmlodipine 2.5 mg tablet Discontinued 2.5 MG PO Daily January 27, 2025 12:00am February 08, 2025 2:04pmazithromycin 250 mg oral tablet (20 sources)Macrolide AntimicrobialStart: 12-08-2024 End: 99-83-3278Zcyrgfaxoile (Zithromax Z-Sabas) 250 mg tablet Discontinued 0 PO .COMPLEX December 08, 2024 12:00am December 15, 2024 12:31pm For 250 mg dose pack: take 500 mg today (day 1), then 250 mg for 4 days (days 2-5) POStart: 02-11-2024 End: 16-49-8160Mjpotzxehdrj (Zithromax Z-Sabas) 250 mg tablet Discontinued 0 PO .COMPLEX April 14, 2024 12:00am April 23, 2024 4:50pm For 250 mg dose pack: take 500 mg today (day 1), then 250 mg for 4 days (days 2-5) POStart: 36-87-2820Ydeimoyjt Z-Sabas 250 MG as directed Orally as directed Sep, ActiveStart: 43-84-3589Yoxwdrllz Z-Sabas 250 MG 2 tablet on the first day, then 1 tablet daily for 4 days Orally Once a day for 5 day(s) May, ActiveStart: actuat budesonide 0.16 mg/actuat / formoterol fumarate 0.0045 mg/actuat metered dose inhaler (20 sources)Corticosteroid, beta2-Adrenergic AgonistStart: 01-72-1165ebvt 2 puff(s) by inhalation once dailyBudesonide-Formoterol Fumarate 160-4.5 MCG/ACT 2 puffs Inhalation Once a day May, ActiveStart: 04-30-2017 End: 17-09-9023lvlb 1 puff(s) by inhalation twice dailyBudesonide-Formoterol 160-4.5 mcg/actuation HFA aerosol inhaler Discontinued 2 PUFF INHALATION Twice daily 10.2 September 09, 2024 9:49am January 01, 2025 12:09pmStart: 97-84-5828wzlq 2 puff(s) by inhalation once daily as neededSymbicort 160-4.5 MCG/ACT 2 puffs Inhalation Once a day prn Aug, ActiveStart: 62-65-6938dqwz 2 puff(s) by inhalation in the morningbudesonide-formoterol (Symbicort) 80-4.5 MCG/ACT inhaler Inhale 2 puffs in the morning and 2 puffs before bedtime. Rinse mouth with water after use to reduce aftertaste and incidence of candidiasis. Do not swallow.. Activecitalopram 40 mg oral tablet (10 sources)Serotonin Reuptake InhibitorStart: 04-30-2017 End: 64-02-2395tcfz 1 tablet by mouth once dailyCitalopram (Celexa) 40 mg Tablet Discontinued 40 MG PO Daily April 30, 2017 1:00am August 07, 2023 5:21pmdexlansoprazole 60 mg delayed release oral capsule (10 sources)Proton Pump InhibitorStart: 04-30-2017 End: 91-02-5507egzz 1 capsule by mouth once dailyDexlansoprazole (Dexilant) 60 capsule,biphase delayed releas Discontinued 60 MG PO Daily April 30, 2017 1:00am August 07, 2023 5:22pmdiclofenac sodium 0.01 mg/mg topical gel (20 sources)Nonsteroidal Anti-inflammatory DrugStart: 04-23-2024 End: 72-27-4971zgnkz 2 g topically four times dailyDiclofenac Sodium (Aleve (Diclofenac)) 1 % gel Discontinued 2 GM TOPICAL Four times daily 100 90 May 12, 2024 4:07pm September 09, 2024 9:04amStart: 04-23-2024 End: 37-15-3775ghfog 2 g topically four times dailyDiclofenac Sodium (Aleve (Diclofenac)) 1 % gel Discontinued 2 GM TOPICAL Four times daily 100 90 April 23, 2024 1:00am May 12, 2024 4:08pmStart: 15-33-7400Ifkybjpy 2 % 2 pumps Externally Twice a day Mar, ActiveStart: 40-30-4591vukderssatc hyclate 100 mg oral capsule (7 sources)Tetracycline-class DrugStart: 07-07-2024 End: 40-83-0566wlcs 1 capsule by mouth twice daily at mealtimeDoxycycline Hyclate 100 mg capsule Discontinued 100 MG PO Twice daily 05 04July 07, 2024 1:00am September 09, 2024 9:05am take with food and full glass of water, no dairy productsibuprofen 800 mg oral tablet (10 sources)Nonsteroidal Anti-inflammatory DrugStart: 04-30-2017 End: 03-27-1545njag 1 tablet by mouth every eight hours as needed for pain Ibuprofen 800 mg tablet Discontinued 800 MG PO Q8H as needed for Pain April 30, 2017 1:00am August 07, 2023 5:22pmlevoFLOXacin 500 mg oral tablet (7 sources)Quinolone AntimicrobialStart: 04-23-2024 End: 94-80-1635rrnv 1 tablet by mouth once dailyLevofloxacin 500 mg tablet Discontinued 500 MG PO Daily April 23, 2024 1:00am May 12, 2024 3:25pmlisinopril 20 mg oral tablet (20 sources)Angiotensin Converting Enzyme InhibitorStart: 09-09-2024 End: 91-57-5912rxgg 1 tablet by mouth once dailyLisinopril 20 mg tablet Discontinued 20 MG PO Daily October 12, 2024 12:19pm February 02, 2025 1:50pm Start: 04-30-2017 End: 12-99-0445lhwo 1 tablet by mouth once dailyLisinopril 10 mg tablet Discontinued 10 MG PO Daily November 25, 2023 4:30pm September 09, 2024 9:50am take 2 tablets by mouth once dailylisinopril 10 MG tablet Take 20 mg by mouth Daily ActiveLORazepam 1 mg oral tablet (10 sources)BenzodiazepineStart: 04-30-2017 End: 86-71-4827hpsx 1 tablet by mouth at bedtime as needed for anxietyLorazepam (Ativan) 1 mg Tablet Discontinued 1 MG PO Bedtime as needed for Anxiety April 30, 2017 1:00am August 07, 2023 5:22pmmeclizine hydrochloride 25 mg oral tablet (20 sources)AntiemeticStart: 33-22-6495cfmn 1 tablet by mouth every twelve hours Meclizine HCl 25 MG 1 tablet as needed Orally every 12 hrs Nov, Active Start: 04-30-2017 End: 97-19-7097zyeq 1 tablet by mouth once daily as needed for dizziness Meclizine 25 mg tablet Discontinued 25 MG PO Daily as needed for prn dizziness May 12, 2024 4:07pm September 09, 2024 9:05ammethylPREDNISolone 4 mg oral tablet (7 sources)CorticosteroidStart: 04-14-2024 End: 39-98-5064cjgp 1 tablet by mouth onceMethylprednisolone (Medrol (Sabas)) 4 mg tablets,dose pack Discontinued 0 PO per package directions April 14, 2024 12:00am April 23, 2024 4:50pm PO PER PKG DIRmupirocin 0.02 mg/mg topical ointment (16 sources)RNA Synthetase Inhibitor AntibacterialStart: 02-11-2024 End: 23-80-7600Fnorynrra 2 % ointment Discontinued 1 APPLIC TOPICAL Twice daily February 12, 2024 10:07am April 23, 2024 4:50pmNirmatrelvir-Ritonavir (4 sources)Start: 05-27-2024 End: 28-31-2230Qspqtvojjopz-Ritonavir (Paxlovid) 300 mg (150 mg x 2)-100 mg tablets,dose pack Discontinued 0 PO .COMPLEX May 27, 2024 1:00am July 07, 2024 5:30pm take TWO 150 mg tablets of nirmatrelvir with ONE 100 mg tablet of ritonavir twice daily for 5 days PONirmatrelvir-Ritonavir (Paxlovid) 300 mg (150 mg x 2)-100 mg tablets,dose pack (3 sources)Start: 05-27-2024 End: 65-16-5053Lufgpquijmqr-Ritonavir (Paxlovid) 300 mg (150 mg x 2)-100 mg tablets,dose pack Discontinued 0 PO .COMPLEX May 27, 2024 1:00am July 07, 2024 5:30pm take TWO 150 mg tablets of nirmatrelvir with ONE 100 mg tablet of ritonavir twice daily for 5 days POphentermine hydrochloride 37.5 mg oral tablet (20 sources)Sympathomimetic Amine AnorecticStart: 03-20-2023 End: 95-21-9137fkqu 1 tablet by mouth once daily before breakfastPhentermine 37.5 mg tablet Discontinued 37.5 MG PO Daily February 11, 2024 3:01pm April 23, 2024 4:50pm 1 tablet before breakfast Orally Once a daypredniSONE 20 mg oral tablet (15 sources)Start: 04-23-2024 End: 48-57-0469Fappzbkcwx 20 mg tablet Discontinued 20 MG PO .COMPLEX April 23, 2024 1:00am May 12, 2024 3:25pm 20 mg orally BID for five days, QD for five days;Start: 29-35-2727adweybWGLF 20 MG 1 tablet Orally BID for 5 days then Daily for 5 days Sep, ActiveStart: 02-74-5895aolpzqFKJY 20 MG 1 tablet Orally BID x 5 days, daily x 5 days for 10 days May, Active Problems Active Problems Problem ClassificationProblemDateDocumented DateEpisodic/ChronicAbdominal hernia (20 sources)Umbilical hernia; Translations: [Umbilical hernia without obstruction or gangrene]EpisodicAbdominal pain (20 sources)Epigastric pain; Translations: [Epigastric pain]53-17-5875Dxcwjivm Adjustment disorders (20 sources)Family tension; Translations: [Reaction to severe stress, unspecified]43-34-8565KfksycbExbrfiz disorders (20 sources)Anxiety disorder; Translations: [Anxiety disorder, unspecified] ChronicAsthma (20 sources)Asthma; Translations: [Other asthma]Onset: 05-01-2021 Resolved: 17-02-4936WdjxgmqYkgvbkynfw associated with dizziness or vertigo (12 sources)Dizziness and giddiness; Translations: [Dizziness]EpisodicDiabetes mellitus without complication (20 sources)Hyperglycemia; Translations: [Hyperglycemia, unspecified]Onset: 04-11-2021 Resolved: 89-84-3794TdpbhxmmEybdodota of lipid metabolism (20 sources)Hyperlipidemia; Translations: [Hyperlipidemia, unspecified]Onset: 04-11-2021 Resolved: 30-76-2186WgtwilrItejykmzuj disorders (20 sources)Gastroesophageal reflux disease; Translations: [Gastro-esophageal reflux disease without esophagitis]89-10-1752GelwbxlPwclgjsqo hypertension (20 sources)Essential hypertension; Translations: [Essential (primary) hypertension]Onset: 12-04-2021 Resolved: 65-01-5596UqwbxyoWoeashol; including migraine (20 sources)Migraine; Translations: [Migraine, unspecified, not intractable, without status migrainosus]Onset: 04-11-2021 Resolved: 57-76-1239VxnxmriGmagytua; including migraine (11 sources)Headache; Translations: [Headache]64-58-4396ScnyizliLawfyvlbbk infection (6 sources)Viral gastroenteritis; Translations: [Viral intestinal infection, unspecified]51-45-0760IvuyykckIjbhglp and fatigue (20 sources)Fatigue; Translations: [Other fatigue]Onset: 04-11-2021 Resolved: 82-41-7875MkcjknpuSemhbzwtrb disorders (10 sources)Menopausal syndrome; Translations: [Menopausal and female climacteric states]ChronicMood disorders (20 sources)Major depressive disorder, single episode, unspecified; Translations: [Depression]78-23-7195VzwivxzFaxip bone disease and musculoskeletal deformities (7 sources)Cervical somatic dysfunction; Translations: [Segmental and somatic dysfunction of cervical region]43-07-6772GasjtzukCafou connective tissue disease (10 sources)Trochanteric bursitis; Translations: [Trochanteric bursitis, left hip]EpisodicOther connective tissue disease (2 sources)Pain in right handOnset: 06-13-2021 Resolved: 53-44-8451DeimulvzToozo female genital disorders (5 sources)Pain in female genitalia on intercourse; Translations: [Unspecified dyspareunia]Onset: 036840-59-5754AwhhpzwXcvzh infections; including parasitic (10 sources)Post-viral disorder; Translations: [Ycoy-ALUAQ-82 condition] 90-42-0160UvgxzmtYxnfq lower respiratory disease (17 sources)Cough; Translations: [Cough]96-22-8807TvehenesMirek lower respiratory disease (7 sources)Cough; Translations: [Acute cough]62-41-7166VhedlcxvGopre nervous system disorders (20 sources)Carpal tunnel syndrome; Translations: [Carpal tunnel syndrome, unspecified upper limb]ChronicOther non-traumatic joint disorders (20 sources)Knee pain; Translations: [Pain in right knee]EpisodicOther non- traumatic joint disorders (10 sources)Hip pain; Translations: [Pain in left hip]EpisodicOther non- traumatic joint disorders (9 sources)Pain in left knee; Translations: [Left knee pain]Onset: 04-13-2024 58-35-5292UiahydoaOvguq nutritional; endocrine; and metabolic disorders (18 sources)Body mass index 30+ - obesity; Translations: [Body mass index (BMI) 30.0-30.9, adult]ChronicOther nutritional; endocrine; and metabolic disorders (6 sources)Obesity caused by energy imbalance; Translations: [Other obesity due to excess calories]ChronicOther nutritional; endocrine; and metabolic disorders (4 sources)Other obesity due to excess caloriesChronicOther nutritional; endocrine; and metabolic disorders (2 sources)Body mass index (BMI) 32.0-32.9, adultChronicOther nutritional; endocrine; and metabolic disorders (3 sources)Obese class I; Translations: [Body mass index (BMI) 31.0-31.9, adult] ChronicOther nutritional; endocrine; and metabolic disorders (1 source)Body mass index (BMI) 31.0-31.9, adultChronicOther nutritional; endocrine; and metabolic disorders (11 sources)Obesity; Translations: [Obesity, unspecified]39-89-3605QxywdkgDcauv nutritional; endocrine; and metabolic disorders (5 sources)Obesity, unspecified; Translations: [Obesity, unspecified]Chronic Other nutritional; endocrine; and metabolic disorders (2 sources)Body mass index (BMI) 30.0-30.9, adultChronicOther nutritional; endocrine; and metabolic disorders (10 sources)Overweight in adulthood with body mass index of 25 or more but less than 30; Translations: [Body mass index (BMI) 28.0-28.9, adult]09-05-2023 EpisodicOther nutritional; endocrine; and metabolic disorders (1 source)Body mass index (BMI) 29.0-29.9, adult; Translations: [Body Mass Index 29.0-29.9, adult]01-55-3214SzqxsdgeRftof nutritional; endocrine; and metabolic disorders (1 source)Body mass index (BMI) 28.0-28.9, adult; Translations: [Body Mass Index 28.0-28.9, adult]93-01-5336DenhwvflLxlwj nutritional; endocrine; and metabolic disorders (1 source)Body mass index (BMI) 27.0-27.9, adult; Translations: [Body Mass Index 27.0-27.9, adult]54-73-2995OtzapaqpDjdxw screening for suspected conditions (not mental disorders or infectious disease) (17 sources)Encounter for screening for malignant neoplasm of cervix; Translations: [Patient encounter status]Onset: 16-04-2704YbhvttnqKdnzi skin disorders (8 sources)Skin tag; Translations: [Other hypertrophic disorders of the skin] 38-44-8779QrxdlyaaBbudb upper respiratory disease (10 sources)Allergic rhinitis; Translations: [Allergic rhinitis, unspecified] ChronicOther upper respiratory disease (15 sources)Seasonal allergy; Translations: [Other seasonal allergic rhinitis] ChronicOther upper respiratory disease (2 sources)Other seasonal allergic rhinitisChronicOther upper respiratory infections (20 sources)Sinusitis; Translations: [Chronic sinusitis, unspecified]Chronic Other upper respiratory infections (17 sources)Acute sinusitis; Translations: [Acute sinusitis, unspecified] 12-83-6079MvjpjlowSnydqmiy codes; unclassified (20 sources)Insomnia; Translations: [Insomnia, unspecified]86-46-6858Apkurjzq Residual codes; unclassified (10 sources)Dyssomnia; Translations: [Sleep disorder, unspecified]Episodic Residual codes; unclassified (8 sources)Pain; Translations: [Pain, unspecified]97-38-3087TgbunkbcMmtot infection (14 sources)Disease caused by 2019-nCoV; Translations: [COVID-19]05-27-2024 Episodic Past or Other Problems Problem ClassificationProblemDateDocumented DateEpisodic/ChronicNeoplasms of unspecified nature or uncertain behavior (2 sources)Neoplasm of uncertain behavior, unspecified; Translations: [Neoplasm of uncertain behavior of skin]Onset: 58-58-6633QbyjlkwvQrtqm connective tissue disease (2 sources)Pain in right finger(s); Translations: [Pain of finger of right hand M79.644]Onset: 04-11-2021 Resolved: 97-13-8204LkfzznclHwueu lower respiratory disease (1 source)CoughOnset: 06-13-2021 Resolved: 08-63-0926SocckxhpJqnthpyy codes; unclassified (1 source)Localized edemaOnset: 06-13-2021 Resolved: 19-04-4563PgbunhkcQfqkadkr codes; unclassified (7 sources)Postmenopausal state; Translations: [Asymptomatic menopausal state] Onset: 553968-51-4199BkpeajceBfxelullyajv (1 source)Lumbar back pain M54.50 Results Test NameValueInterpretationReference RangeFacilityCOVID CepheidOrdered By: Zay Arambula on 24-97-1539QNZK-CoV-2 (COVID-19) RNA JENNIFER+probe Ql (Unsp spec) NegativeUniversity Hospitals Conneaut Medical CenterNo Panel InformationOrdered By: Zay Arambula on 77-29-6246UXO Influenza A (PCR)NegativeUniversity Hospitals [facility] Center POC Influenza B (PCR)NegativeUniversity Hospitals Conneaut Medical CenterQuick Strep (POC) [facility] CenterIGP,APTIMA HPV,AGE GDLNon 41-03-8301GKD GDLN ACOG TESTINGNote.NOMS HealthcareComment on above:TESTS RESULT FLAG UNITS REF RANGE LAB Clinician Provided Cytology Information Source.............Vagina No. of containers..01 ThinPrep Vial Age Alba MCCARTHY Josey... FLAG LEGEND: L-Low Normal,H-High Normal,LL-Alert Low,HH-Alert High <-Panic Low,>-Panic High,A-Abnormal,AA-Critical Abnormal Performed at: 01 =[address] [address] Elvira Ortiz MD, HPV APTIMANegativeNegativeNOMS HealthcareComment on above:This nucleic acid amplification test detects fourteen high- risk HPV types (16,18,31,33,35,39,45,51,52,56,58,59,66,68) without differentiation. Performed at: =[address] [id number] Surveillance Specialist: Elvira Ortiz MD, Phone: [phone] Performed at: [address] [id number] Surveillance Specialist: Elvira Ortiz MD, Phone: [phone] IGP, APTIMA HPV, RFX 16/18,45Note.[facility] HealthcareComment on above:TESTS RESULT FLAG UNITS REF RANGE LAB DIAGNOSIS: 02 NEGATIVE FOR INTRAEPITHELIAL LESION OR MALIGNANCY. Specimen adequacy: 02 Satisfactory for evaluation. Performed by: 02 Jerry Carlisle Dope Edger (ASC) . 02 Note: Note 02 The Pap smear is a screening test designed to aid in the detection of premalignant and malignant conditions of the uterine cervix. It is not a diagnostic procedure and should not be used as the sole means of detecting cervical cancer. Both false-positive and false-negative reports do occur. Test Methodology: Note 02 This liquid based ThinPrep(R) pap test was screened with the use of an image guided system. HPV Genotype Reflex Note 02 Criteria not met, HPV Genotype not performed. FLAG LEGEND: L-Low Normal,H-High Normal,LL-Alert Low,HH-Alert High <-Panic Low,>-Panic High,A-Abnormal,AA-Critical Abnormal Performed at: [address] [facility] [place] [address] Elvira Ortiz MD, SPATULA-ALONE [facility]IS[facility]NCNOM[facility] papilloma virus 16+18+31+33+35+39+45+51+52+56+58+59+66+68 DNA [Presence] in Giu 12-45-3361NWK 16+18+31+33+35+39+45+51+52+56+58+59+66+68 DNA Probe+sig amp Ql (Cvx)Negative NegativeUniversity Hospitals Conneaut Medical CenterComment on above:This nucleic acid amplification test detects fourteen high-risk HPV types (16,18,31,33,35,39,45,51,52,56,58,59,66,68)without differentiation.Performed at: =G - [facility] [id number] Director: Elvira Ortiz MD, Phone: [phone] at: - [facility] [id number] Director: Elvira Ortiz MD, Phone: [phone] Panel Informationon 04-62-3885MVD High Risk Other CommentNote. [facility] Conneaut Medical CenterComment on above:TESTS RESULT FLAG UNITS REF RANGE LAB DIAGNOSIS: 02 NEGATIVE FOR INTRAEPITHELIAL LESION OR MALIGNANCY.Specimen adequacy: 02 Satisfactory forevaluation.Performed by: 02 Jerry Carlisle Dope Edger (ASCP). 02Note: Note 02 The Pap smear is ascreening test designed to aid in the detection of premalignant and malignant conditions of the uterine cervix. It is not a diagnostic procedure and should not be used as the sole means of detecting cervical cancer. Both false-positive and false-negative reports do occur.Test Methodology: Note 02 This liquid based ThinPrep(R) pap test was screened with the use of an image guided system.HPV Genotype Reflex Note 02 Criteria not met, HPV Genotype not performed. FLAG LEGEND: L-Low Normal,H-High Normal,LL-Alert Low,HH- Alert High <-Panic Low,>-Panic High,A-Abnormal,AA-Critical Abnormal Performed at:02 [facility] [address] [address] Ankit Ortiz MD, Dbklhxzgu Lab Test Patient [facility] Conneaut Medical CenterComment on above:TESTS RESULT FLAG UNITS REF RANGE LAB Clinician Provided Cytology Information Source.............Vagina No. of containers..01 ThinPrep VialAge Careno LAYNE Josey... 30-65 01 FLAG LEGEND: L- Low Normal,H-High Normal,LL-Alert Low,HH-Alert High <-Panic Low,>-Panic High,A-Abnormal,AA-Critical Abnormal Performed at:01 =G [facility] [address] [facility] [place] [address] Elvira Ortiz MD, Nhasydd aminotransferase [Enzymatic activity/volume] in Serum or PlasmaOrdered By: Zay Arambula on 32-49-5790ORL [Catalytic activity/Vol]Alanine aminotransferase [Enzymatic activity/volume] in Serum or Plasma7University [facility] Conneaut Medical CenterAlbumin [Mass/volume] in Serum or Plasma by Bromocresol green (BCG) dye binding methoOrdered By: Zay Arambula on 78-56-1210Jsyortk BCG dye [Mass/Vol]Albumin [Mass/volume] in Serum or Plasma by Bromocresol green (BCG) dye binding metho3.5-5.7FMercy Health Urbana HospitalAlkaline phosphatase [Enzymatic activity/volume] in Serum or PlasmaOrdered By: Zay Arambula on 00-86-4275XAQ [Catalytic activity/Vol]Alkaline phosphatase [Enzymatic activity/volume] in Serum or Ofymzg02-482ZagzpobbfUniversity Hospitals Conneaut Medical CenterAspartate aminotransferase [Enzymatic activity/volume] in Serum or PlasmaOrdered By: Zay Arambula on 70-08-4730OXI [Catalytic activity/Vol] Aspartate aminotransferase [Enzymatic activity/volume] in Serum or Apbkyo47-16 [facility] Medical CenterBasophils Auto (Bld) [#/Vol]Ordered By: Zay Arambula on 11-86-6260Rzyyduhjl (Bld) [#/Vol]Automated basophil count0.0-0.2 [facility] Medical CenterBasophils/100 WBC Auto (Bld)Ordered By: Zay Arambula on 74-13-0752Vmsrcqbbu/100 WBC (Bld)Automated basophil %.[facility] Medical CenterBilirubin.total [Mass/volume] in Serum or PlasmaOrdered By: Zay Arambula on 21-16-2317Nsivobdjz [Mass/Vol]Bilirubin.total [Mass/volume] in Serum or Plasma0.3-1.0[facility] Conneaut Medical CenterCMP with reflex to A1Con 74-34-1562Qibxgrz [Mass/Vol]4.7 g/dLNormal3.5-5.7The [facility] Comment on above:Performed By: #### CBC, EBS A1C, CMP wRFX A1C, LIPID, TSH3 #### [facility] [address] [place] [address] USAAlbumin/Globulin [Mass ratio]1.9 {ratio}NormalThe [facility] Pineville Physician GroupComment on above:Performed By: #### CBC, EBS A1C, CMP wRFX A1C, LIPID, TSH3 #### [facility] [address] [place] [address] USAALP [Catalytic activity/Vol]62 U/LQietgk52-488Dtf [facility] Physician GroupComment on above:Performed By: #### CBC, EBS A1C, CMP wRFX A1C, LIPID, TSH3 #### [facility] [address] [place] [address] USAALT [Catalytic activity/Vol]40 U/LNormal7-52The [facility] Physician GroupComment on above:Performed By: #### CBC, EBS A1C, CMP wRFX A1C, LIPID, TSH3 #### [facility] [address] [place] [address] USAAnion gap [Moles/Vol]14.1 mmol/LNormal6.0-15.0The [facility] Physician GroupComment on above:Performed By: #### CBC, EBS A1C, CMP wRFX A1C, LIPID, TSH3 #### [place] [address] USAAST [Catalytic activity/Vol]31 U/GPcigxm64-81Sku [facility] Physician GroupComment on above:Performed By: #### CBC, EBS A1C, CMP wRFX A1C, LIPID, TSH3 #### [place] [address] USABilirubin [Mass/Vol]0.6 mg/dLNormal0.3-1.0The [facility] Physician GroupComment on above:Performed By: #### CBC, EBS A1C, CMP wRFX A1C, LIPID, TSH3 #### [place] [address] USACalcium [Mass/Vol]10.0 mg/dLNormal8.6-10.3The [facility] Physician GroupComment on above:Performed By: #### CBC, EBS A1C, CMP wRFX A1C, LIPID, TSH3 #### [place] [address] USAChloride [Moles/Vol]104 mmol/JFdhpzy45-215Ame [facility]ician GroupComment on above:Performed By: #### CBC, EBS A1C, CMP wRFX A1C, LIPID, TSH3 #### [place] [address] USACO2 [Moles/Vol]29.4 mmol/QXpdlhf78.0-31.0The [facility]ician GroupComment on above:Performed By: #### CBC, EBS A1C, CMP wRFX A1C, LIPID, TSH3 #### [place] [address] USACreatinine [Mass/Vol]0.74 mg/dLNormal0.60-1.20The [facility] Physician GroupComment on above:Performed By: #### CBC, EBS A1C, CMP wRFX A1C, LIPID, TSH3 #### [place] [address] USAGFR/1.73 sq M.predicted MDRD (S/P/Bld) [Vol rate/Area] mL/min/{1.73_m2}NormalThe [facility] Physician GroupComment on above:Performed By: #### CBC, EBS A1C, CMP wRFX A1C, LIPID, TSH3 #### [place] [address] USAGlobulin (S) [Mass/Vol]2.5 g/dLNormalThe [facility] Physician GroupComment on above:Performed By: #### CBC, EBS A1C, CMP wRFX A1C, LIPID, TSH3 #### [place] [address] USAGlucose [Mass/Vol]104 mg/sAIriz16-861Nyq [facility]ician GroupComment on above:Result Comment: ADA recommended reference range Performed By: #### CBC, EBS A1C, CMP wRFX A1C, LIPID, TSH3 #### [place] [address] USAPotassium [Moles/Vol]4.5 mmol/LNormal3.5-5.1The [facility] Physician GroupComment on above:Performed By: #### CBC, EBS A1C, CMP wRFX A1C, LIPID, TSH3 #### [place] [address] USAProtein [Mass/Vol]7.2 g/dLNormal6.4-8.9The [facility] Physician GroupComment on above:Performed By: #### CBC, EBS A1C, CMP wRFX A1C, LIPID, TSH3 #### [place] [address] USASodium [Moles/Vol]143 mmol/QNjzdyq691-453Lwb [facility] GroupComment on above:Performed By: #### CBC, EBS A1C, CMP wRFX A1C, LIPID, TSH3 #### [facility] [address] [place] [address] USAUrea nitrogen [Mass/Vol]12 mg/dLNormal7-25The [facility]ician GroupComment on above:Performed By: #### CBC, EBS A1C, CMP wRFX A1C, LIPID, TSH3 #### [facility] [address] [place] [id number] USACalcium [Mass/volume] in Serum or PlasmaOrdered By: Zay Arambula on 59-06-4109Uxsfjdo [Mass/Vol]Calcium [Mass/volume] in Serum or Plasma 8.6-10.3FMercy Health Urbana HospitalCarbon dioxide, total [Moles/volume] in Serum or PlasmaOrdered By: Zay Arambula on 56-11-7358HE6 [Moles/Vol]Carbon dioxide, total [Moles/volume] in Serum or Cipjhz20.0-31.0[facility] Medical CenterChloride [Moles/volume] in Serum or PlasmaOrdered By: Zay Arambula on 51-03-2777Pesykpuz [Moles/Vol]Chloride [Moles/volume] in Serum or Plasma 98-107[facility] CenterCholesterol [Mass/volume] in Serum or PlasmaOrdered By: Zay Arambula on 43-99-4009Ufcycjdzghp [Mass/Vol]Cholesterol [Mass/volume] in Serum or Lnyfgm225-305PjiwxzaqgUniversity Hospitals Conneaut Medical CenterComment on above:Chol less than 200 mg/dl low riskChol 201-239 mg/dl borderline riskChol 240 mg/dl and greater high riskCholesterol in HDL [Mass/volume] in Serum or PlasmaOrdered By: Zay Arambula on 53-98-9073Nlzevfsqsij in HDL [Mass/Vol]Serum or plasma high density lipoprotein (HDL) cholesterol jozluvqpfvb23-21BhsupcyfoUniversity Hospitals Conneaut Medical CenterComment on above:HDL CHOL ATP-III CLASSIFICATION Cardiovascular RiskHDL > or equal to 60 mg/dL LOWHDL < 40 mg/dL HIGHCholesterol in LDL Calc [Mass/Vol]Ordered By: Zay Arambula on 76-01-4137Mwdtketnfcg in LDL [Mass/Vol]Cholesterol in LDL [Mass/volume] in Serum or Plasma by calculation 0-100[facility] CenterComment on above:LDL ATP III CLASSIFICATIONLDL less than 100 mg/dL OptimalLDL 100-129 mg/dL Near or above wsnteyyFDW395-916 mg/dL Borderline highLDL 160-189 mg/dL HighLDL greater than 189 mg/dL Very highCholesterol in VLDL Calc [Mass/Vol]Ordered By: Zay Arambula on 48-75-8752Tvebzywbkvl in VLDL [Mass/Vol]Cholesterol in VLDL [Mass/volume] in Serum or Plasma by calculationUniversity Hospitals Conneaut Medical CenterComplete Blood Count Auto Diffon 22-82-1169Fahbqdltq (Bld) [#/Vol]0.1 10*3/uLNormal0.0-0.2The [facility]ician GroupComment on above:Result Comment: PERFORMED BY: [place] [address] PATHOLOGIST DESIGN CONSULTANT SPIKE DAVALOS M.D.Performed By: #### CBC, EBS A1C, CMP wRFX A1C, LIPID, TSH3 #### [place] [address] USABasophils/100 WBC (Bld)0.9 %Normal.The [facility] Physician GroupComment on above:Performed By: #### CBC, EBS A1C, CMP wRFX A1C, LIPID, TSH3 #### [place] [address] USAEosinophils (Bld) [#/Vol]0.1 10*3/uLNormal0.0-0.45The [facility] Physician GroupComment on above:Performed By: #### CBC, EBS A1C, CMP wRFX A1C, LIPID, TSH3 #### [place] [address] USAEosinophils/100 WBC (Bld)1.2 %Normal.The [facility] Physician GroupComment on above:Performed By: #### CBC, EBS A1C, CMP wRFX A1C, LIPID, TSH3 #### [place] [address] USAErythrocyte distribution width (RBC) [Ratio]12.7 %Normal 11.9-15.3The [facility] Physician GroupComment on above:Performed By: #### CBC, EBS A1C, CMP wRFX A1C, LIPID, TSH3 #### [place] [address] USAHematocrit (Bld) [Volume fraction]42.4 %Bsrsvy85.0-46.4The [facility] Physician GroupComment on above:Performed By: #### CBC, EBS A1C, CMP wRFX A1C, LIPID, TSH3 #### [place] [address] USAHemoglobin (Bld) [Mass/Vol]14.2 g/zWEhdmdx39.8-15.4The [facility] GroupComment on above:Performed By: #### CBC, EBS A1C, CMP wRFX A1C, LIPID, TSH3 #### [place] [address] USALymphocytes (Bld) [#/Vol]1.3 10*3/uLNormal1.00-4.8The [facility] GroupComment on above:Performed By: #### CBC, EBS A1C, CMP wRFX A1C, LIPID, TSH3 #### [place] [address] USALymphocytes/100 WBC (Bld)18.2 %Normal.The [facility] Physician GroupComment on above:Performed By: #### CBC, EBS A1C, CMP wRFX A1C, LIPID, TSH3 #### [place] [address] USAMCH (RBC) [Entitic mass]30.2 tcJbkrxx17.7-34.3The [facility]ician GroupComment on above:Performed By: #### CBC, EBS A1C, CMP wRFX A1C, LIPID, TSH3 #### [place] [address] USAMCV (RBC) [Entitic vol]89.9 hLIopgot28-993Tfl [facility] GroupComment on above:Performed By: #### CBC, EBS A1C, CMP wRFX A1C, LIPID, TSH3 #### [place] [address] USAMean Corpuscular HGB Conc33.6 g/iEEkxtey17.0-35.0The [facility] Physician GroupComment on above:Performed By: #### CBC, EBS A1C, CMP wRFX A1C, LIPID, TSH3 #### [place] [address] USAMonocytes (Bld) [#/Vol]0.6 10*3/uLNormal0.0-0.8The [facility] GroupComment on above:Performed By: #### CBC, EBS A1C, CMP wRFX A1C, LIPID, TSH3 #### [place] [address] USAMonocytes/100 WBC (Bld)8.2 %Normal.The [facility] Physician GroupComment on above:Performed By: #### CBC, EBS A1C, CMP wRFX A1C, LIPID, TSH3 #### [place] [address] USANeutrophils (Bld) [#/Vol]5.3 10*3/uLNormal1.8-7.7The [facility] GroupComment on above:Performed By: #### CBC, EBS A1C, CMP wRFX A1C, LIPID, TSH3 #### [place] [address] USANeutrophils/100 WBC (Bld)71.5 %Normal.The [facility] Physician GroupComment on above:Performed By: #### CBC, EBS A1C, CMP wRFX A1C, LIPID, TSH3 #### [place] [address] USANRBC%0.1 /100{WBC}Normal0-0.5The [facility] Comment on above:Performed By: #### CBC, EBS A1C, CMP wRFX A1C, LIPID, TSH3 #### [facility] [address] [place] [address] USAPlatelet mean volume (Bld) [Entitic vol]8.4 fLNormal 6.3-10.7The [facility] Physician GroupComment on above:Performed By: #### CBC, EBS A1C, CMP wRFX A1C, LIPID, TSH3 #### [facility] [address] [place] [address] USAPlatelets (Bld) [#/Vol]287 10*3/iOQleljn922-046Ale [facility] GroupComment on above:Performed By: #### CBC, EBS A1C, CMP wRFX A1C, LIPID, TSH3 #### [place] [address] USARBC (Bld) [#/Vol]4.72 10*6/uLNormal3.60-5.00The [facility] CenterComment on above:Performed By: #### CBC, EBS A1C, CMP wRFX A1C, LIPID, TSH3 #### [place] [address] USAWBC (Bld) [#/Vol]7.4 10*3/uLNormal3.8-11.6The [facility] GroupComment on above:Performed By: #### CBC, EBS A1C, CMP wRFX A1C, LIPID, TSH3 #### [place] [address] USACreatinine [Mass/volume] in Serum or PlasmaOrdered By: Zay Arambula on 18-39-1363Kwhtgvacbm [Mass/Vol]Creatinine [Mass/volume] in Serum or Plasma0.60-1.20[facility] Medical CenterEBS A1C with Estimated Ave Gluon 19-19-3139Wotoyqe [Mass/Vol]111 mg/dLNoAtrium Health [facility] Comment on above:Result Comment: PERFORMED BY: [place] [address] PATHOLOGIST DESIGN CONSULTANT SPIKE DAVALOS M.D.Performed By: #### CBC, EBS A1C, CMP wRFX A1C, LIPID, TSH3 #### [facility] [address] [place] [address] FEQYxR1f (Bld) [Mass fraction]5.5 %Normal4.3-5.6The [facility] Physician GroupComment on above:Result Comment: Increased risk for diabetes: 5.7 - 6.4 diabetes: >6.4 glycemic control for adults with diabetes: <7.0Performed By: #### CBC, EBS A1C, CMP wRFX A1C, LIPID, TSH3 #### [facility] [address] [place] [id number] USAEosinophils Auto (Bld) [#/Vol]Ordered By: Zay Arambula on 89-39-9009Eiilmclxamu (Bld) [#/Vol]Automated eosinophil count0.0-0.45[facility] Medical CenterEosinophils/100 WBC Auto (Bld)Ordered By: Zay Arambula on 10-98-1103Lcgmbvaywff/100 WBC (Bld)Automated eosinophil %.[facility] Medical CenterErythrocyte distribution width Auto (RBC) [Ratio]Ordered By: Zay Arambula on 65-30-7014Iytlrneybwu distribution width (RBC) [Ratio]Erythrocyte distribution width [Ratio] by Automated count11.9-15.3FMercy Health Urbana HospitalFPG ECG *PCP OFFICE ONLY*on 10-69-5318DAB ECG *PCP OFFICE ONLY*[facility] [place] [address] [place], [place] [id number] Electrocardiograph Report Signed Patient: Kerry Lopez MR#: [id number] : 1965 Acct:[id number] Age/Sex: 58 / F ADM Date: 09/09/24 Loc: EKGCAST Room: Type: [facility] Attending Dr: Zay Arambula DO Ordering Provider: [...] previous ECGs available Confirmed by Osman Lance ([id number]) on 09/15/2024 5:16:12 AM Referred By: Electronically Signed By: Osman Lance Transcribed By: MUS Signed By Osman Lance MD 09/15/24 0516Children's MinnesotaGlobulin Calc (S) [Mass/Vol] Ordered By: Zay Arambula on 16-84-5724Mxijojyy (S) [Mass/Vol]Serum globulin measurement by calculation (mass/volume)[facility] CenterGlucose [Mass/volume] in Serum or PlasmaOrdered By: Zay Arambula on 98-51-8861Loczreh [Mass/Vol]Glucose [Mass/volume] in Serum or MculzmNwby90-324MkgqskbhmUniversity Hospitals Conneaut Medical CenterComment on above:ADA recommended reference rangeHematocrit Auto (Bld) [Volume fraction]Ordered By: Zay Arambula on 34-88-2430Lygnarsncw (Bld) [Volume fraction]Hematocrit [Volume Fraction] of Blood by Automated count 34.0-46.4FMercy Health Urbana HospitalHemoglobin [Mass/volume] in Blood Ordered By: Zay Arambula on 21-95-9890Rhyqvpmvre (Bld) [Mass/Vol]Hemoglobin [Mass/volume] in Blood11.8-15.4FMercy Health Urbana HospitalLeukocytes [#/volume] corrected for nucleated erythrocytes in Blood by Automated coun Ordered By: Zay Arambula on 43-01-7753MCW corrected for nucl RBC Auto (Bld) [#/Vol]Leukocytes [#/volume] corrected for nucleated erythrocytes in Blood by Automated coun3.8-11.6FMercy Health Urbana HospitalLipid Panelon 09-09-2024 Cholesterol [Mass/Vol]193 mg/hROhcnmr323-960Vwz [facility] CenterComment on above:Result Comment: Chol less than 200 mg/dl low risk Chol 201-239 mg/dl borderline risk Chol 240 mg/dl and greater high riskPerformed By: #### CBC, EBS A1C, CMP wRFX A1C, LIPID, TSH3 #### [place] [address] USACholesterol in HDL [Mass/Vol]86 mg/fYKeitta11-27Kzq [facility] Physician GroupComment on above:Result Comment: HDL CHOL ATP-III CLASSIFICATION Cardiovascular Risk HDL > or equal to 60 mg/dL LOW HDL < 40 mg/dL HIGHPerformed By: #### CBC, EBS A1C, CMP wRFX A1C, LIPID, TSH3 #### [facility] [address] [place] [address] USACholesterol.total/Cholesterol in HDL [Mass ratio]2.2 {ratio}Normal<5.0The [facility] Physician GroupComment on above:Performed By: #### CBC, EBS A1C, CMP wRFX A1C, LIPID, TSH3 #### [facility] [address] [place] [id number] USALDL Cholesterol,Zhtftgwudi24 mg/dLNormal0-100The [facility] Physician GroupComment on above:Result Comment: LDL ATP III CLASSIFICATION LDL less than 100 mg/dL Optimal LDL 100-129 mg/dL Near or above optimal LDL 130-159 mg/dL Borderline high LDL 160-189 mg/dL High LDL greater than 189 mg/dL Very highPerformed By: #### CBC, EBS A1C, CMP wRFX A1C, LIPID, TSH3 #### [facility] [address] [place] [address] USATriglyceride w/Dwojof40 mg/dLNormal0-149The [facility] Physician GroupComment on above:Result Comment: TRIG ATP III CLASSIFICATION TRIG less than 150 mg/dL Normal TRIG 150-199 mg/dL Borderline high TRIG 200-500 mg/dL High TRIG greater than 500 mg/dL Very high Standard traceable to the Center for Disease Conrtrol and Prevention (CDC) test method.Performed By: #### CBC, EBS A1C, CMP wRFX A1C, LIPID, TSH3 #### [facility] [address] [place] [address] USAVLDL DKCLMFQATLN28 mg/dLNormalThe [facility] Physician GroupComment on above:Performed By: #### CBC, EBS A1C, CMP wRFX A1C, LIPID, TSH3 #### [facility] [address] [place] [address] USALymphocytes Auto (Bld) [#/Vol]Ordered By: Zay Arambula on 69-97-8380Ggiigybyvys (Bld) [#/Vol]Lymphocytes [#/volume] in Blood by Automated count1.00-4.8[facility] Medical CenterLymphocytes/100 WBC Auto (Bld) Ordered By: Zay Arambula on 55-72-3334Cnqhfujopnp/100 WBC (Bld)Lymphocytes/100 leukocytes in Blood by Automated count.[facility] Medical CenterMCH Auto (RBC) [Entitic mass]Ordered By: Zay Arambula on 53-36-0780FEI (RBC) [Entitic mass]MCH [Entitic mass] by Automated count24.7-34.3FMercy Health Urbana HospitalMCHC Auto (RBC) [Mass/Vol]Ordered By: Zay Arambula on 03-90-9036XRUL (RBC) [Mass/Vol]MCHC [Mass/volume] by Automated count32.0-35.0[facility] Medical CenterMCV Auto (RBC) [Entitic vol]Ordered By: Zay Arambula on 09-09-2024 MCV (RBC) [Entitic vol]MCV [Entitic volume] by Automated hyyua83-203NctxmhyegUniversity Hospitals Conneaut Medical CenterMonocytes Auto (Bld) [#/Vol]Ordered By: Zay Arambula on 18-28-9080Armszakaf (Bld) [#/Vol]Automated blood monocyte count0.0-0.8[facility] CenterMonocytes/100 WBC Auto (Bld)Ordered By: Zay Arambula on 10-46-0624Qwcgudwgk/100 WBC (Bld)Automated monocyte %.[facility] Medical CenterNeutrophils Auto (Bld) [#/Vol]Ordered By: Zay Arambula on 09-09-2024 Neutrophils (Bld) [#/Vol]Neutrophils [#/volume] in Blood by Automated count 1.8-7.7FMercy Health Urbana HospitalNeutrophils/100 WBC Auto (Bld)Ordered By: Zay Arambula on 53-62-3434Nkcilcrcnsh/100 WBC (Bld)Automated neutrophil %. [facility] CenterNo Panel InformationOrdered By: Zay Arambula on 20-84-1955Mukltiomb GFR (CKD-EPI)> 60.0 mL/MinUniversity Hospitals Conneaut Medical Center Pharmacy Creatinine Clearance (ChemN/AFMercy Health Urbana HospitalNucleated erythrocytes [Presence] in Blood by Automated countOrdered By: Zay Arambula on 87-51-9325Njbgefjxn RBC Auto Ql (Bld)Nucleated erythrocytes [Presence] in Blood by Automated count0-0.5FMercy Health Urbana HospitalPlatelet mean volume Auto (Bld) [Entitic vol]Ordered By: Zay Arambula on 89-79-7916Ozlhfsvw mean volume (Bld) [Entitic vol]Platelet mean volume [Entitic volume] in Blood by Automated count6.3-10.7FMercy Health Urbana HospitalPlatelets Auto (Bld) [#/Vol] Ordered By: Zay Arambula on 11-05-3753Gqvtkuzzc (Bld) [#/Vol]Platelets [#/volume] in Blood by Automated lzygt092-053LuzulanmlUniversity Hospitals Conneaut Medical CenterPotassium [Moles/volume] in Serum or PlasmaOrdered By: Zay Arambula on 02-23-2810Cfnprzejp [Moles/Vol]Potassium [Moles/volume] in Serum or Plasma3.5-5.1FMercy Health Urbana HospitalProtein [Mass/volume] in Serum or PlasmaOrdered By: Zay Arambula on 36-29-0372Vibhuzx [Mass/Vol]Protein [Mass/volume] in Serum or Plasma6.4-8.9 [facility] Medical CenterRBC Auto (Bld) [#/Vol]Ordered By: Zay Arambula on 69-27-0209SXB (Bld) [#/Vol]Erythrocytes [#/volume] in Blood by Automated count 3.60-5.00Mansfield Hospitalerum or plasma albumin/globulin mass ratioOrdered By: Zay Arambula on 42-18-0109Sezxulp/Globulin [Mass ratio]Serum or plasma albumin/globulin mass ratioMansfield Hospitalerum or plasma anion gap determinationOrdered By: Zay Arambula on 86-23-1044Wzxtu gap [Moles/Vol]Serum or plasma anion gap determination6.0-15.0Mansfield Hospitalerum or plasma total cholesterol/high density lipoprotein (HDL) cholesterol mass ratOrdered By: Zay Arambula on 09-09-2024 Cholesterol.total/Cholesterol in HDL [Mass ratio]Serum or plasma total cholesterol/high density lipoprotein (HDL) cholesterol mass rat<5.0Mansfield Hospitalodium [Moles/volume] in Serum or PlasmaOrdered By: Zay Arambula on 47-66-0995Yojwlf [Moles/Vol]Sodium [Moles/volume] in Serum or Plasma 136-145[facility] Medical CenterThyroid Stimulating Hormoneon 09-09-2024 TSH Qn0.88 m[IU]/LNormal0.45-5.33The [facility] Physician GroupComment on above: Result Comment: PERFORMED BY: [place] [address] PATHOLOGIST DESIGN CONSULTANT SPIKE DAVALOS M.D.Performed By: #### CBC, EBS A1C, CMP wRFX A1C, LIPID, TSH3 #### [place] [address] USAThyrotropin [Units/volume] in Serum or PlasmaOrdered By: Zay Arambula on [id number] QnThyrotropin [Units/volume] in Serum or Plasma 0.45-5.33[facility] CenterTriglyceride [Mass/volume] in Serum or PlasmaOrdered By: Zay Arambula on [id number] [Mass/Vol]Triglyceride [Mass/volume] in Serum or Plasma0-149[facility] CenterComment on above:TRIG ATP III CLASSIFICATIONTRIG less than 150 mg/dL NormalTRIG 150-199 mg/dL Borderline highTRIG 200-500 mg/dL High TRIG greater than 500 mg/dL Very highStandard traceable to the Center for Disease Conrtrol and Prevention (CDC) test method.Urea nitrogen [Mass/volume] in Serum or PlasmaOrdered By: Zay Arambula on [id number] nitrogen [Mass/Vol]Urea nitrogen [Mass/volume] in Serum or Plasma7-25[facility] Medical CenterWBC Auto (Bld) [#/Vol]Ordered By: Zay Arambula on 44-94-7252URS (Bld) [#/Vol]Leukocytes [#/volume] in Blood by Automated count3.8-11.6FMercy Health Urbana HospitalLaboratory - Chemistry and Chemistry - challengeon 43-78-3965Onejepvjo Ql (U)NegativeUniversity Hospitals Conneaut Medical CenterGlucose (U) [Mass/Vol]NegativeUniversity Hospitals Conne[facility] Center Ketones Ql (U)NegativeUniversity Hospitals Conneaut Medical CenterpH (U)6.5 [pH][facility]ansfield Hospitalpecific gravity (U) [Rel density]1.010[facility] Medical CenterUrobilinogen (U) [Mass/Vol]0.2 mg/dLUniversity Hospitals Conneaut Medical CenterLaboratory - Specimen informationon 95-94-3027Eecslolyea (U)clearUniversity Hospitals Conneaut Medical CenterColor (U)yellowUniversity Hospitals Conneaut Medical Center Laboratory - Urinalysison 65-25-9583Ojhiughmo esterase Test strip Ql (U)Negative [facility] CenterNitrite Ql (U)NegativeUniversity Hospitals Conneaut Medical CenterProtein Ql (U)NegativeUniversity Hospitals Conneaut Medical CenterNo Panel Informationon 57-38-0137Jsnyi Occult BloodNegativeUniversity Hospitals Conneaut Medical CenterXR knee LT 4V*on 50-09-9297NI knee LT 4V*[facility] [place] [address] XRay Report Signed Patient: Kerry Lopez MR#: [id number] : 1965 Acct:[id number] Age/Sex: 58 / F ADM Date: 04/13/24 Loc: XD Room: Type: [facility] Attending Dr: Zay Arambula DO Copies to: Zay Arambula DO [...] Skye Wheatley M.D.04/13/2024 10:49 AM Dictation Location: [place] [address] Transcribed By: JUANCHO 04/13/24 1049 Dictated By: Skye Wheatley MD 04/13/24 1047 Signed By: 04/13/24 1049[facility] Physician GroupInfluenza virus B Ag [Presence] in Upper respiratory specimen by Rapid immunoassayon 19-41-8712QPART Ag IA.rapid Ql (Nph)NegativeUniversity Hospitals Conneaut Medical CenterNo Panel Informationon 03-88-3413Xybmwmyfq Type A (Rapid)NegativeUniversity Hospitals Conneaut Medical CenterPOC SARS CoV-2 AntigenNegativeUniversity Hospitals Conneaut Medical CenterNo Panel Information Ordered By: Zay Arambula on 97-37-6807Slayj Strep (POC)[facility] Medical CenterRSV (POC)[facility] Medical CenterMM TOMOSYNTHESIS SCREENING BIon 85-35-7011[place], [place] [address] Mammography Report Signed Patient: KERRY LOPEZ MR#: [id number] : 1965 Acct:[id number] Age/Sex: 58 / F ADM Date: 12/24/23 Loc: MAMMO Attending Dr: Mariana Ronquillo D.O. Ordering Physician: Mariana Ronquillo D.O. Results: Date of Service: 12/24/23 Follow Up: Procedure(s): MM tomosynthesis screening BI Accession Number(s): [id number] cc: Mariana Ronquillo D.O.; IESHA ARAMBULA Patient Name: KERRY LOPEZ MR#: [id number] : 1965 Exam Date: 12/24/2023 Ordering Doctor: DR Mariana Ronquillo . RADIOLOGY REPORT PROCEDURE: MM TOMOSYNTHESIS [...] throat cancer at age 76. LOCATION: [facility] BREAST COMPOSITION: There are scattered [...] Signed By: 12/25/23 0740 DD/ 0739 TD/TT: Project Architect:TBHRadiology, Radiologist, - 12/25/2023 [place] [address] Mammography Report Signed Patient: KERRY LOPEZ MR#: [id number] : 1965 Acct:[id number] Age/Sex: 58 / F ADM Date: 12/24/23 Loc: MAMMO Attending Dr: Mariana Ronquillo D.O. Ordering Physician: Mariana Ronquillo D.O. Results: Date of Service: 12/24/23 Follow Up: Procedure(s): MM tomosynthesis screening BI Accession Number(s): [id number] cc: Mariana Ronquillo D.O.; IESHA ARAMBULA Patient Name: KERRY LOPEZ MR#: [id number] : 1965 Exam Date: 12/24/2023 Ordering Doctor: DR Mariana Ronquillo . RADIOLOGY REPORT PROCEDURE: MM TOMOSYNTHESIS [...] throat cancer at age 76. LOCATION: [facility] BREAST COMPOSITION: There are scattered [...] Dictated By: Jostin Alexander M.D. Signed By: 12/25/2340 DD/ 8 TD/TT: Project Architect: [facility] CenterRadiology Study observation (narrative)[facility] TOMOSYNTHESIS SCREENING BIOrdered By: Radiologist Radiology on 90-73-8516[facility] Work Phone: [place] [phone]: [phone] Received: 12/16/23752 Status: JAG Matthew Num: [id number] Spec Type: Surgical Subm Dr: Zay Arambula DO Tissues: A Skin-Other than Cyst, tag, debridement or plastic repair (LT AXILLA) Procedures: HE, Gross/Micro L4 Age/ Patient Sex Location Account Attending Physician Kerry Lopez 58/F KF [id number] Zay Arambula DO SPEC NUM: [id number] RECD: 12/16/23 STATUS: JAG MATTHEW NUM: [id number] GIOVANNA: 12/13/23- SUBM DR: Zay Arambula DO ENTERED: 12/16/[address] [facility] [address]: SPEC TYPE: Surgical DEPT: S ORDERED: David ROSADO/Moy L4 ORDERED: David ROSADO/Moy L4 Supplemental Report Addendum 1 Entered: 12/26/23 This case was sent to [facility] for consultation. 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 Please see attached consultation report from [facility] for diagnostic details. Addendum Signed (signature on file) Spike Davalos MD 12/26/231953 Pathological Diagnosis Preliminary report Skin lesion, left axilla, biopsy: Reactive keratosis. Pending consultation. Specimen: [id number] Received: 12/16/23 Status: JAG Matthew Num: [id number] Spec Type: Surgical Subm Dr: Zay Arambula, Tissues: A Skin-Other than Cyst, tag, debridement or plastic repair (LT AXILLA) Procedures: David ROSADO/Moy L4 Patient: Kerry Lopez [id number] (Continued) Specimen: [id number] Received: 12/16/23 (Continued) Signed (signature on file) Spike Davalos MD 12/18/23 1537 Specimen: [id number] Received: 12/16/23 Status: JAG Matthew Num: [id number] Spec Type: Surgical Subm Dr: Zay Arambula DO Tissues: A Skin-Other than Cyst, tag, debridement or plastic repair (LT AXILLA) Procedures: David ROSADO/Moy Crews Patient: Kerry Lopez [id number] (Continued) Specimen: [id number] Received: 12/16/23 (Continued) Clinical Information Neoplasm of uncertain behavior of skin/suspicious lesion Gross Description Received in formalin labeled with the patient's name, date of and left axilla 1.1 cm is a 0.6 x 0.4 x 0.3 cm raised thakkar-white skin shave biopsy. The specimen is inked black along its resection margin, bisected and entirely submitted in A1. CPT Codes 85813 Specimen: [id number] Received: 12/16/23 Status: JAG Matthew Num: [id number] Spec Type: Surgical Subm Dr: Zay Arambula DO Tissues: A Skin-Other than Cyst, tag, debridement or plastic repair (LT AXILLA) Procedures: ASHLEE, Gross/Micro L4 Patient: Kerry Lopez [id number] (Continued) Signed (signature on file) Spike Davalos MD 12/18/[address] [place] [address] Physician GroupAlanine aminotransferase [Enzymatic activity/volume] in Serum or PlasmaOrdered By: Zay Arambula on 25-36-2861ZGS [Catalytic activity/Vol]27 U/L7-52[facility] CenterAlbumin [Mass/volume] in Serum or Plasma by Bromocresol green (BCG) dye binding methoOrdered By: Zay Arambula on 53-62-6644Uwywspy BCG dye [Mass/Vol]4.4 g/dL3.5-5.7FMercy Health Urbana HospitalAlkaline phosphatase [Enzymatic activity/volume] in Serum or PlasmaOrdered By: Zay Arambula on 46-30-9143JZX [Catalytic activity/Vol]59 U/V81-353GdzbjairdUniversity Hospitals Conneaut Medical CenterAspartate aminotransferase [Enzymatic activity/volume] in Serum or PlasmaOrdered By: Zay Arambula on 66-89-1319ATR [Catalytic activity/Vol]22 U/K09-29OvchwqrwaUniversity Hospitals Conneaut Medical CenterBasophils Auto (Bld) [#/Vol]Ordered By: Zay Arambula on 09-09-2023 Basophils (Bld) [#/Vol]0.1 10*3/uL0.0-0.2FMercy Health Urbana Hospital Basophils/100 WBC Auto (Bld)Ordered By: Zay Arambula on 29-47-2325Umdpwvyvb/100 WBC (Bld)0.9 %.[facility] CenterBilirubin.total [Mass/volume] in Serum or PlasmaOrdered By: Zay Arambula on 21-42-7658Knukysoyr [Mass/Vol]0.6 mg/dL0.3-1.0[facility] CenterCalcium [Mass/volume] in Serum or PlasmaOrdered By: Zay Arambula on 94-65-1112Viqucay [Mass/Vol]9.4 mg/dL8.6-10.3 [facility] CenterCarbon dioxide, total [Moles/volume] in Serum or PlasmaOrdered By: Zay Arambula on 17-42-7801BC8 [Moles/Vol]28.2 mmol/L21.0-31.0 [facility] CenterChloride [Moles/volume] in Serum or Plasma Ordered By: Zay Arambula on 87-50-9408Hfqyebbc [Moles/Vol]107 mmol/L98-107 [facility] CenterCholesterol [Mass/volume] in Serum or Plasma Ordered By: Zay Arambula on 44-08-4211Pmvrrfghcni [Mass/Vol]176 mg/tQ010-864 [facility] CenterComment on above:Chol less than 200 mg/dl low riskChol 201-239 mg/dl borderline riskChol 240 mg/dl and greater high risk Cholesterol in LDL Calc [Mass/Vol]Ordered By: Zay Arambula on 09-09-2023 Cholesterol in LDL [Mass/Vol]81 mg/dL0-100[facility] Comment on above:LDL ATP III CLASSIFICATIONLDL less than 100 mg/dL OptimalLDL 100-129 mg/dL Near or above srwuuuxVEP397-452 mg/dL Borderline highLDL 160-189 mg/dL HighLDL greater than 189 mg/dL Very highCholesterol in VLDL Calc [Mass/Vol]Ordered By: Zay Arambula on 00-77-4809Ejsqwvnuvio in VLDL [Mass/Vol]15 mg/dLUniversity Hospitals Conneaut Medical CenterCreatinine [Mass/volume] in Serum or PlasmaOrdered By: Zay Arambula on 85-87-1489Jqzwpftxrl [Mass/Vol]0.75 mg/dL 0.60-1.20[facility] CenterEosinophils Auto (Bld) [#/Vol]Ordered By: Zay Arambula on 62-50-9692Mxiaegchito (Bld) [#/Vol]0.1 10*3/uL0.0-0.45 [facility] CenterEosinophils/100 WBC Auto (Bld)Ordered By: Zay Arambula on 87-14-9786Nhdpbnrasve/100 WBC (Bld)1.2 %.[facility] Medical CenterErythrocyte distribution width Auto (RBC) [Ratio]Ordered By: Zay Arambula on 86-58-7695Ehsyrshhgkb distribution width (RBC) [Ratio]13.2 %11.9-15.3FMercy Health Urbana HospitalGlobulin Calc (S) [Mass/Vol]Ordered By: Zay Arambula on 64-19-2756Jrexpeja (S) [Mass/Vol]2.2 g/dLUniversity Hospitals Conneaut Medical Center Glucose [Mass/volume] in Serum or PlasmaOrdered By: Zay Arambula on 09-09-2023 Glucose [Mass/Vol]104 mg/qE95-720UrzrjyukwUniversity Hospitals Conneaut Medical CenterComment on above:ADA recommended reference rangeRandom Glucose Reference Range is dependent on time and content of last meal. Glucose of more than 200 mg/dL in a nonstressed, ambulatory subject supports the diagnosisof Diabetes Mellitus. Glucose mean value [Mass/volume] in Blood Estimated from glycated hemoglobin Ordered By: Zay Arambula on 51-89-7235Dyslzhg glucose Estimated from glycated hemoglobin (Bld) [Mass/Vol]111 mg/dLUniversity Hospitals Conneaut Medical CenterHematocrit Auto (Bld) [Volume fraction]Ordered By: Zay Arambula on 40-26-6003Nfpgsnvnxx (Bld) [Volume fraction]42.2 %34.0-46.4FMercy Health Urbana HospitalHemoglobin A1c percentageOrdered By: Zay Arambula on 68-18-6993ReW7k (Bld) [Mass fraction]5.5 % 4.3-5.6FMercy Health Urbana HospitalComment on above:Increased risk for diabetes: 5.7 - 6.4diabetes: >6.4glycemic control for adults with diabetes: &l t;7.0Hemoglobin [Mass/volume] in BloodOrdered By: Zay Arambula on 09-09-2023 Hemoglobin (Bld) [Mass/Vol]13.7 g/dL11.8-15.4FMercy Health Urbana Hospital Leukocytes [#/volume] corrected for nucleated erythrocytes in Blood by Automated counOrdered By: Zay Arambula on 07-45-4469ISM corrected for nucl RBC Auto (Bld) [#/Vol]6.3 10*3/uL3.8-11.6FMercy Health Urbana HospitalLymphocytes Auto (Bld) [#/Vol]Ordered By: Zay Arambula on 83-03-7672Uzqaaihovvm (Bld) [#/Vol]1.5 10*3/uL1.00-4.8[facility] Medical CenterLymphocytes/100 WBC Auto (Bld) Ordered By: Zay Arambula on 79-92-3638Oearymyxdpb/100 WBC (Bld)24.6 %.[facility] HospitalH Auto (RBC) [Entitic mass]Ordered By: Zay Arambula on 09-27-8720DYN (RBC) [Entitic mass]29.6 pg24.7-34.3FMercy Health Urbana HospitalMCHC Auto (RBC) [Mass/Vol]Ordered By: Zay Arambula on 53-53-2593RTRA (RBC) [Mass/Vol]32.6 g/dL32.0-35.0[facility] Medical CenterMCV Auto (RBC) [Entitic vol]Ordered By: Zay Arambula on 58-85-0448NCU (RBC) [Entitic vol]90.8 fL 80-100[facility] CenterMonocytes Auto (Bld) [#/Vol]Ordered By: Zay Arambula on 74-91-0663Mawbxekzc (Bld) [#/Vol]0.6 10*3/uL0.0-0.8[facility] CenterMonocytes/100 WBC Auto (Bld)Ordered By: Zay Arambula on 09-30-5598Lhagowzhx/100 WBC (Bld)9.7 %.[facility] Neutrophils Auto (Bld) [#/Vol]Ordered By: Zay Arambula on 84-96-8618Okqywdwkdix (Bld) [#/Vol]4.0 10*3/uL1.8-7.7FMercy Health Urbana HospitalNeutrophils/100 WBC Auto (Bld)Ordered By: Zay Arambula on 46-30-9065Hvjatdslypl/100 WBC (Bld)63.6 %.[facility] CenterNo Panel InformationOrdered By: Zay Arambula on 55-35-3654Hffbowtdq GFR (CKD-EPI)> 60.0 mL/MinUniversity Hospitals Conneaut Medical Center Pharmacy Creatinine Clearance (ChemN/AFMercy Health Urbana HospitalNucleated erythrocytes [Presence] in Blood by Automated countOrdered By: Zay Arambula on 91-85-0189Arkfidzol RBC Auto Ql (Bld)0.1 /100{WBC}0-0.5FMercy Health Urbana HospitalPlatelet mean volume Auto (Bld) [Entitic vol]Ordered By: Zay Arambula on 63-14-6916Tfnscmph mean volume (Bld) [Entitic vol]8.2 fL6.3-10.7 [facility] Medical CenterPlatelets Auto (Bld) [#/Vol]Ordered By: Zay Arambula on 32-32-6212Mwhcudfkt (Bld) [#/Vol]249 10*3/cQ788-903UyzrpqvshUniversity Hospitals Conneaut Medical CenterPotassium [Moles/volume] in Serum or PlasmaOrdered By: Zay Arambula on 53-66-5943Uafgbaonr [Moles/Vol]4.1 mmol/L3.5-5.1FMercy Health Urbana HospitalProtein [Mass/volume] in Serum or PlasmaOrdered By: Zay Arambula on 90-90-4826Jdwqsqy [Mass/Vol]6.6 g/dL6.4-8.9[facility] Medical CenterRBC Auto (Bld) [#/Vol]Ordered By: Zay Arambula on 77-07-0467UVA (Bld) [#/Vol]4.64 10*6/uL3.60-5.00Mansfield Hospitalerum or plasma albumin/globulin mass ratioOrdered By: Zay Arambula on 48-40-0705Xgtpauj/Globulin [Mass ratio]2.0 {ratio}Mansfield Hospitalerum or plasma anion gap determinationOrdered By: Zay Arambula on 76-63-8335Wodmj gap [Moles/Vol]9.9 mmol/L6.0-15.0Mansfield Hospitalerum or plasma high density lipoprotein (HDL) cholesterol measurementOrdered By: Zay Arambula on 09-09-2023 Cholesterol in HDL [Mass/Vol]79 mg/dU35-15BpapwjrmvUniversity Hospitals Conneaut Medical Center Comment on above:HDL CHOL ATP-III CLASSIFICATION Cardiovascular RiskHDL > or equal to 60 mg/dL LOWHDL < 40 mg/dL HIGHSerum or plasma total cholesterol/high density lipoprotein (HDL) cholesterol mass ratOrdered By: Zay Arambula on 10-94-3639Etifvtfdofs.total/Cholesterol in HDL [Mass ratio]2.2 {ratio}<5.0 Mansfield Hospitalodium [Moles/volume] in Serum or PlasmaOrdered By: Zay Arambula on 02-34-8658Avvezz [Moles/Vol]141 mmol/N353-958EwnuvwiakUniversity Hospitals Conneaut Medical CenterThyrotropin [Units/volume] in Serum or PlasmaOrdered By: Zay Arambula on 93-97-9048VVC Qn1.22 m[IU]/L0.45-5.33[facility] Medical CenterTriglyceride [Mass/volume] in Serum or PlasmaOrdered By: Zay Arambula on 13-17-0134Eifzrelozkck [Mass/Vol]79 mg/dL0-149[facility] Comment on above:TRIG ATP III CLASSIFICATIONTRIG less than 150 mg/dL NormalTRIG 150-199 mg/dL Borderline highTRIG 200-500 mg/dL High TRIG greater than 500 mg/dL Very highStandard traceable to the Center for Disease Conrtrol and Prevention (CDC) test method.Urea nitrogen [Mass/volume] in Serum or PlasmaOrdered By: Zay Arambula on 65-28-7928Cqfc nitrogen [Mass/Vol]11 mg/dL7[facility] CenterWBC Auto (Bld) [#/Vol]Ordered By: Zay Arambula on 35-13-9330UHJ (Bld) [#/Vol]6.3 10*3/uL3.8-11.6FMercy Health Urbana HospitalA1C HEMOGLOBIN on 30-43-4393BaE2i (Bld) [Mass fraction]5,.5NortWills Eye Hospital OnDeck Other HbA1c (Bld) [Mass fraction]on 09-53-6027V0I HEMOGLOBIN [employer] Other Alanine aminotransferase [Enzymatic activity/volume] in Serum or PlasmaOrdered By: Zay Arambula on 57-00-7151AKP [Catalytic activity/Vol]37 U/L7-52[facility] CenterAlbumin [Mass/volume] in Serum or Plasma by Bromocresol green (BCG) dye binding methoOrdered By: Zay Arambula on 29-25-4354Aifdkcw BCG dye [Mass/Vol]4.3 g/dL3.5-5.7FMercy Health Urbana HospitalAlkaline phosphatase [Enzymatic activity/volume] in Serum or PlasmaOrdered By: Zay Arambula on 38-69-6727KAE [Catalytic activity/Vol]47 U/L 34-104[facility] Medical CenterAspartate aminotransferase [Enzymatic activity/volume] in Serum or PlasmaOrdered By: Zay Arambula on 76-42-9312OSK [Catalytic activity/Vol]28 U/V57-88NqpkablhfUniversity Hospitals Conneaut Medical CenterBasophils Auto (Bld) [#/Vol]Ordered By: Zay Arambula on 65-57-1855Qomxdbsaw (Bld) [#/Vol]0.1 10*3/uL0.0-0.2FMercy Health Urbana HospitalBasophils/100 WBC Auto (Bld) Ordered By: Zay Arambula on 32-99-6590Srdoipowz/100 WBC (Bld)1.1 %.[facility] Medical CenterBilirubin.total [Mass/volume] in Serum or PlasmaOrdered By: Zay Arambula on 17-04-6808Iqqnmtgrq [Mass/Vol]0.7 mg/dL0.3-1.0[facility] CenterCalcium [Mass/volume] in Serum or PlasmaOrdered By: Zay Arambula 38-11-2388Cfrjsum [Mass/Vol]8.7 mg/dL8.6-10.3FMercy Health Urbana HospitalCarbon dioxide, total [Moles/volume] in Serum or PlasmaOrdered By: Zay Arambula on 94-45-0821NW1 [Moles/Vol]27.1 mmol/L21.0-31.0[facility] CenterChloride [Moles/volume] in Serum or PlasmaOrdered By: Zay Arambula on 63-47-7397Pypmozlx [Moles/Vol]108 mmol/Y91-446ZxcaeseruUniversity Hospitals Conneaut Medical Center Cholesterol [Mass/volume] in Serum or PlasmaOrdered By: Zay Arambula on 09-28-2022 Cholesterol [Mass/Vol]162 mg/fI967-616WgvwuncllUniversity Hospitals Conneaut Medical CenterComment on above:Chol less than 200 mg/dl low riskChol 201-239 mg/dl borderline riskChol 240 mg/dl and greater high riskCholesterol in LDL Calc [Mass/Vol]Ordered By: Zay Arambula on 16-01-6371Kcsalqaeqsj in LDL [Mass/Vol]69 mg/dL0-100[facility] CenterComment on above:LDL ATP III CLASSIFICATIONLDL less than 100 mg/dL OptimalLDL 100-129 mg/dL Near or above pppeqbcBUW765-024 mg/dL Borderline highLDL 160-189 mg/dL HighLDL greater than 189 mg/dL Very high Cholesterol in VLDL Calc [Mass/Vol]Ordered By: Zay Arambula on 09-28-2022 Cholesterol in VLDL [Mass/Vol]9 mg/dLUniversity Hospitals Conneaut Medical CenterCreatinine [Mass/volume] in Serum or PlasmaOrdered By: Zay Arambula on 45-59-4673Dliutgoift [Mass/Vol]0.78 mg/dL0.60-1.20[facility] CenterEosinophils Auto (Bld) [#/Vol]Ordered By: Zay Arambula on 59-60-1630Chzphgkiajx (Bld) [#/Vol]0.2 10*3/uL0.0-0.45[facility] CenterEosinophils/100 WBC Auto (Bld) Ordered By: Zay Arambula on 87-66-6845Hfbsihbtzqo/100 WBC (Bld)2.9 %.[facility] CenterErythrocyte distribution width Auto (RBC) [Ratio]Ordered By: Zay Arambula on 85-13-1996Qkueimpvfso distribution width (RBC) [Ratio]12.9 % 11.9-15.3FMercy Health Urbana HospitalFerritin [Mass/volume] in Serum or PlasmaOrdered By: Zay Arambula on 46-66-9846Dzchsnwd [Mass/Vol]115.5 ng/mL 11.0-306.8[facility] Medical CenterGlobulin Calc (S) [Mass/Vol]Ordered By: Zay Arambula on 80-94-2910Xnubbabn (S) [Mass/Vol]2.2 g/dLUniversity Hospitals Conneaut Medical CenterGlucose [Mass/volume] in Serum or PlasmaOrdered By: Zay Arambula on 79-30-0158Nwneiou [Mass/Vol]105 mg/pP87-453LqmjcsrrxUniversity Hospitals Conneaut Medical Center Comment on above:ADA recommended reference rangeRandom Glucose Reference Range is dependent on time and content of last meal. Glucose of more than 200 mg/dL in a nonstressed, ambulatory subject supports the diagnosisof Diabetes Mellitus. Hematocrit Auto (Bld) [Volume fraction]Ordered By: Zay Arambula on 09-28-2022 Hematocrit (Bld) [Volume fraction]42.3 %34.0-46.4FMercy Health Urbana HospitalHemoglobin [Mass/volume] in BloodOrdered By: Zay Arambula on 09-28-2022 Hemoglobin (Bld) [Mass/Vol]13.9 g/dL11.8-15.4FMercy Health Urbana Hospital Iron [Mass/volume] in Serum or PlasmaOrdered By: Zay Arambula on 96-39-8766Aygy [Mass/Vol]115 ug/hK84-562AekrdtnafUniversity Hospitals Conneaut Medical CenterIron binding capacity [Mass/volume] in Serum or PlasmaOrdered By: Zay Arambula on 15-56-5439Ooml binding capacity [Mass/Vol]392 ug/vJ996-505IxpgxbxbuUniversity Hospitals Conneaut Medical CenterIron saturation [Mass Fraction] in Serum or PlasmaOrdered By: Zay Arambula on 88-00-8605Gidx saturation [Mass fraction]29.3 %20-50[facility] CenterLeukocytes [#/volume] corrected for nucleated erythrocytes in Blood by Automated counOrdered By: Zay Arambula on 23-03-5180WRO corrected for nucl RBC Auto (Bld) [#/Vol]6.5 10*3/uL3.8-11.6FMercy Health Urbana Hospital Lymphocytes Auto (Bld) [#/Vol]Ordered By: Zay Arabmula on 20-28-7772Tweyjdtodxj (Bld) [#/Vol]2.0 10*3/uL1.00-4.8[facility] CenterLymphocytes/100 WBC Auto (Bld)Ordered By: Zay Arambula on 12-25-7252Dztvteqgkvp/100 WBC (Bld)31.2 %.[facility] HospitalH Auto (RBC) [Entitic mass]Ordered By: Zay Arambula on 59-91-2967IVK (RBC) [Entitic mass]29.8 pg24.7-34.3FMercy Health Urbana HospitalMCHC Auto (RBC) [Mass/Vol]Ordered By: Zay Arambula on 43-69-6837TNXQ (RBC) [Mass/Vol]32.7 g/dL32.0-35.0[facility] CenterMCV Auto (RBC) [Entitic vol]Ordered By: Zay Arambula on 13-20-5021EEF (RBC) [Entitic vol]91.2 zL72-423DsssshctfUniversity Hospitals Conneaut Medical CenterMonocytes Auto (Bld) [#/Vol]Ordered By: Zay Arambula on 71-74-2871Inphbluub (Bld) [#/Vol]0.6 10*3/uL 0.0-0.8[facility] CenterMonocytes/100 WBC Auto (Bld)Ordered By: Zay Arambula on 59-49-5795Wfywkzliu/100 WBC (Bld)9.6 %.[facility] Medical CenterNeutrophils Auto (Bld) [#/Vol]Ordered By: Zay Arambula on 09-28-2022 Neutrophils (Bld) [#/Vol]3.6 10*3/uL1.8-7.7FMercy Health Urbana Hospital Neutrophils/100 WBC Auto (Bld)Ordered By: Zay Arambula on 09-28-2022 Neutrophils/100 WBC (Bld)55.2 %.[facility] CenterNo Panel InformationOrdered By: Zay Arambula on 96-89-1706Baledtscj GFR (CKD-EPI)> 60.0 mL/MinUniversity Hospitals Conneaut Medical CenterPharmacy Creatinine Clearance (ChemN/A [facility] CenterNucleated erythrocytes [Presence] in Blood by Automated countOrdered By: Zay Arambula on 87-19-8336Fqflzxzli RBC Auto Ql (Bld) 0.3 /100{WBC}0-0.5FMercy Health Urbana HospitalPlatelet mean volume Auto (Bld) [Entitic vol]Ordered By: Zay Arambula on 10-29-5587Ofmwuetw mean volume (Bld) [Entitic vol]8.8 fL6.3-10.7FMercy Health Urbana HospitalPlatelets Auto (Bld) [#/Vol]Ordered By: Zay Arambula on 05-25-5006Esfopwrgq (Bld) [#/Vol]212 10*3/hE572-941DtraywfdyUniversity Hospitals Conneaut Medical CenterPotassium [Moles/volume] in Serum or PlasmaOrdered By: Zay Arambula on 72-61-5296Sgzspwtpu [Moles/Vol]4.2 mmol/L 3.5-5.1FMercy Health Urbana HospitalProtein [Mass/volume] in Serum or Plasma Ordered By: Zay Arambula on 02-13-9923Luypqfb [Mass/Vol]6.5 g/dL6.4-8.9[facility] Medical CenterRBC Auto (Bld) [#/Vol]Ordered By: Zay Arambula on 54-19-9762DVE (Bld) [#/Vol]4.65 10*6/uL3.60-5.00M[facility]field Hospitalerum or plasma albumin/globulin mass ratioOrdered By: Zay Arambula on 36-28-1479Hraznqw/Globulin [Mass ratio]2.0 {ratio}[facility]field Hospitalerum or plasma anion gap determinationOrdered By: Zay Arambula on 90-11-9687Ppkiy gap [Moles/Vol]10.1 mmol/L6.0-15.0Mansfield Hospitalerum or plasma high density lipoprotein (HDL) cholesterol measurement Ordered By: Zay Arambula on 64-62-1262Mxnixduqvhq in HDL [Mass/Vol]83 mg/dL35-85 [facility] CenterComment on above:HDL CHOL ATP-III CLASSIFICATION Cardiovascular RiskHDL > or equal to 60 mg/dL LOWHDL < 40 mg/dL HIGHSerum or plasma total cholesterol/high density lipoprotein (HDL) cholesterol mass ratOrdered By: Zay Arambula on 58-46-7010Qlouyiebsds.total/Cholesterol in HDL [Mass ratio]2.0 {ratio}<5.0Mansfield Hospitalodium [Moles/volume] in Serum or PlasmaOrdered By: Zay Arambula on 60-51-9715Sxkkgf [Moles/Vol]141 mmol/K471-490WitvozuwcUniversity Hospitals Conneaut Medical CenterThyrotropin [Units/volume] in Serum or PlasmaOrdered By: Zay Arambula on 15-14-0906MSI Qn1.64 m[IU]/L0.45-5.33[facility] Medical CenterThyroxine (T4) free [Mass/volume] in Serum or PlasmaOrdered By: Zay Arambula on 73-34-3690Tnix T4 [Mass/Vol]0.85 ng/dL0.61-1.12[facility] CenterTransferrin [Mass/volume] in Serum or PlasmaOrdered By: Zay Arambula on 05-52-5541Ebahdcnoaqv [Mass/Vol]280 mg/sL738-985EsdciyygxUniversity Hospitals Conneaut Medical CenterTriglyceride [Mass/volume] in Serum or PlasmaOrdered By: Zay Arambula on 23-02-3154Dyrrujudcxab [Mass/Vol]49 mg/dL0-149[facility] CenterComment on above:TRIG ATP III CLASSIFICATIONTRIG less than 150 mg/dL NormalTRIG 150-199 mg/dL Borderline highTRIG 200-500 mg/dL High TRIG greater than 500 mg/dL Very highStandard traceable to the Center for Disease Conrtrol and Prevention (CDC) test method.Urea nitrogen [Mass/volume] in Serum or PlasmaOrdered By: Zay Arambula on 06-50-4165Srbq nitrogen [Mass/Vol]15 mg/dL7-25[facility] CenterWBC Auto (Bld) [#/Vol]Ordered By: Zay Arambula on 01-71-1591IKE (Bld) [#/Vol]6.5 10*3/uL3.8-11.6FMercy Health [facility] Vital Signs Date TimeVital SignValuePerforming KbmsdxsrrBqryszrp57-53-9446 15:13-0400Body nxfxod028.48 cmBryan Kuns DO Work Phone: [facility]09-30-2025 15:13-0400 Body mass index (BMI) [Ratio]33 kg/w6FuljiZay Anayas DO Work Phone: [facility]09-30-2025 15:13-0400 Body lpwwcy51.1 kgZay Anayas DO Work Phone: [facility]09-30-2025 15:13-0400 Diastolic blood letprgek62 mm[Hg]Zay Anayas DO Work Phone: 1(020)841-[address] [place], [place] 4500109-30-2025 15:13-0400 Heart rate86 /minZay Anayas DO Work Phone: 1(769)[address]09-30-2025 15:13-0400 Respiratory rate16 /minZay Anayas DO Work Phone: 1(142)0-[address] [place], [place] 4500109-30-2025 15:13-0400 SaO2% (BldA) [Mass fraction]96 %Zay Arambula DO Work Phone: 1(152)2-[address] [place], [place] 4500109-30-2025 15:13-0400 Systolic blood xkghqmsi045 mm[Hg]Zay Anayas DO Work Phone: [phone]93[facility]08-25-2025 14:13-0400 Diastolic blood etechwqq01 mm[Hg]Zay Anayas DO Work Phone: [facility]08-25-2025 14:13-0400 Systolic blood xrswfqgo544 mm[Hg]Zay Anayas DO Work Phone: [phone]08-25-2025 14:05-0400 Body dmfzjy380.48 cmZay Anayas DO Work Phone: 2(712)8-[address] [place], [place] 4500108-25-2025 14:05-0400 Body mass index (BMI) [Ratio]32.9 kg/o3YwhdmZay Anayas DO Work Phone: 1(419)[address]08-25-2025 14:05-0400 Body yuzgrx15.64 kgZay Anayas DO Work Phone: 1(446)8-[address] [place], [place] 4500108-25-2025 14:05-0400 Heart rate87 /minZay Anayas DO Work Phone: 1(043)8-[address] [place], [place] 4500108-25-2025 14:05-0400 Respiratory rate16 /minZay Anayas DO Work Phone: 1(408)6-[address] [place], [place] 4500108-25-2025 14:05-0400 SaO2% (BldA) [Mass fraction]97 %Zay Arambula DO Work Phone: 1(964)[address] [place], [place] 9714908-13-2025 11:28-0400 Body .48 cmZay Arambula DO Work Phone: 1(940)[address] [place], [place] 9714908-13-2025 11:28-0400 Body mass index (BMI) [Ratio]32.7 kg/f0HhahzZay Anayas DO Work Phone: 1(798)[address] [place], [place] 9714908-13-2025 11:28-0400 Body kczikwxyvak76.2 [degF]Zay Arambula DO Work Phone: 1(652)[address]08-13-2025 11:28-0400 Body vnthmy32.19 kgZay Arambula DO Work Phone: 1(118)[address]08-13-2025 11:28-0400 Diastolic blood uquocxtt69 mm[Hg]Zay Arambula DO Work Phone: 1(125)[address]08-13-2025 11:28-0400 Heart rate71 /minZay Anayas DO Work Phone: 1(163)0-[address] [place], [place] 4500108-13-2025 11:28-0400 Respiratory rate18 /minZay Anayas DO Work Phone: 1(613)2-[address] [place], [place] 4500108-13-2025 11:28-0400 SaO2% (BldA) [Mass fraction]95 %Zay Kuns DO Work Phone: [facility]08-13-2025 11:28-0400 Systolic blood tektildt737 mm[Hg]Zay Arambula DO Work Phone: [facility]07-01-2025 12:36-0400 Body vqlvty241.48 cmZay Arambula DO Work Phone: [address] [place], [place] 3904107-01-2025 12:36-0400 Body mass index (BMI) [Ratio]31.8 kg/s2YufqhZay Arambula DO Work Phone: 1(428)[address]07-01-2025 12:36-0400 Body uzjsna89.92 kgZay Arambula DO Work Phone: 1(433)[address]07-01-2025 12:36-0400 Diastolic blood dfqrnuox57 mm[Hg]Zay Arambula DO Work Phone: 1(419)287-[address] [place], [place] 4500107-01-2025 12:36-0400 Heart rate77 /minZay Arambula DO Work Phone: 7(543)[address] [place], [place] 4500107-01-2025 12:36-0400 Respiratory rate16 /minZay Arambula DO Work Phone: 0(363)2-[address] [place], [place] 4500107-01-2025 12:36-0400 SaO2% (BldA) [Mass fraction]96 %Zay Arambula DO Work Phone: [facility]07-01-2025 12:36-0400 Systolic blood wfjjusyj901 mm[Hg]Zay Arambula DO Work Phone: [address] [place], [place] 3904106-05-2025 09:24-0400 Body mass index (BMI) [Ratio]31.64 kg/n4TlwkzMariana Galavizo DO Work Phone: [facility] CenterVczqveozjl46-68-8277 09:24-0400Body ogksof08.47 kgCorebea Galavizo DO Work Phone: [facility] CenterRqvhuikyzf31-44-1653 09:24-0400Diastolic blood ioiotogy19 mm[Hg]Mariana Yg DO Work Phone: [facility] CenterXcyflidrwr74-51-7988 09:24-0400Systolic blood jzveufrg774 mm[Hg]Mariana Yg DO Work Phone: [facility] CenterDbfxuahrpc01-91-3058 09:00-0400Body atuhte143.48 cmZay Arambula DO Work Phone: 1(568)5-[address] [place], [place] 4500103-26-2025 09:00-0400 Body mass index (BMI) [Ratio]31.2 kg/l7WynxrZay Anayas DO Work Phone: 1(077)1-[address] [place], [place] 4500103-26-2025 09:00-0400 Body fquhjo69.56 kgZay Anayas DO Work Phone: 1(568)7-[address] [place], [place] 4500103-26-2025 09:00-0400 Diastolic blood snapkbgf33 mm[Hg]Zay Anayas DO Work Phone: 1(223)1-[address] [place], [place] 4500103-26-2025 09:00-0400 Heart rate88 /minZay Arambula DO Work Phone: 1(017)3-[address] [place], [place] 4500103-26-2025 09:00-0400 Respiratory rate18 /minZay Anayas DO Work Phone: [phone]03-26-2025 09:00-0400 SaO2% (BldA) [Mass fraction]97 %Zay Arambula DO Work Phone: 1(048)8-[address] [place], [place] 4500103-26-2025 09:00-0400 Systolic blood errntswk460 mm[Hg]Zay Anayas DO Work Phone: [phone]01-21-2025 16:04-0500 Body .48 cmZay Anayas DO Work Phone: [phone]01-21-2025 16:04-0500 Body mass index (BMI) [Ratio]31.8 kg/d3FbqljZay Anayas DO Work Phone: [facility]01-21-2025 16:04-0500 Body sremek38.92 kgBryjailyn Kuns DO Work Phone: [facility]01-21-2025 16:04-0500 Diastolic blood sbefpjpx84 mm[Hg]Zay Kuns DO Work Phone: [facility]01-21-2025 16:04-0500 Heart rate87 /minNavan Kuns DO Work Phone: [facility]01-21-2025 16:04-0500 Respiratory rate18 /minBryan Kuns DO Work Phone: [address] [place], [place] 3904101-21-2025 16:04-0500 SaO2% (BldA) [Mass fraction]98 %Zayjailyn Anayas DO Work Phone: [facility]01-21-2025 16:04-0500 Systolic blood xvpsiltp443 mm[Hg]Zay Héctors DO Work Phone: [facility]08-27-2024 14:32-0400 Body fokrgz697.48 cmDO Zay Anayas Work Phone: [facility]08-27-2024 14:32-0400 Body mass index (BMI) [Ratio]27.4 kg/m2DO Zay Kuns Work Phone: [facility]08-27-2024 14:32-0400 Body rnoocd95.03 kgDO Zay Kuns Work Phone: [facility]08-27-2024 14:32-0400 Diastolic blood kfqwflge49 mm[Hg]DO Zay Kuns Work Phone: [facility]08-27-2024 14:32-0400 Heart rate91 /minDO Zay Kuns Work Phone: [facility]08-27-2024 14:32-0400 Respiratory rate16 /minDO Zay Arambula Work Phone: [facility]08-27-2024 14:32-0400 SaO2% (BldA) [Mass fraction]98 %DO Zay Arambula Work Phone: [facility]08-27-2024 14:32-0400 Systolic blood mm[Hg]DO Zay Arambula Work Phone: [facility]03-21-2024 13:49-0400 Body ydkzeh777.48 cmDO Zay Arambula Work Phone: [address] [place], [place] 3904103-21-2024 13:49-0400 Body mass index (BMI) [Ratio]28.9 kg/m2DO Zay Arambula Work Phone: [facility]03-21-2024 13:49-0400 Body vifxyn63.66 kgDO Zay Arambula Work Phone: [facility]03-21-2024 13:49-0400 Diastolic blood grizuzvv67 mm[Hg]DO Zay Arambula Work Phone: [facility]03-21-2024 13:49-0400 Heart rate85 /KiarraO Zay Arambula Work Phone: [facility]03-21-2024 13:49-0400 Respiratory rate16 /minDO Zay Arambula Work Phone: [facility]03-21-2024 13:49-0400 SaO2% (BldA) [Mass fraction]94 %DO Zay Arambula Work Phone: [facility]03-21-2024 13:49-0400 Systolic blood zugqxokt974 mm[Hg]DO Zay Arambula Work Phone: [facility]02-22-2024 14:12-0500 Body .48 cmDO Zay Arambula Work Phone: [address] [place], [place] 3904102-22-2024 14:12-0500 Body mass index (BMI) [Ratio]29.6 kg/m2DO Zay Arambula Work Phone: [facility]02-22-2024 14:12-0500 Body meaigl50.48 kgDO Zay Arambula Work Phone: [facility]02-22-2024 14:12-0500 Diastolic blood daladfog55 mm[Hg]DO Zay Arambula Work Phone: [facility]02-22-2024 14:12-0500 Heart rate83 /minDO Zay Arambula Work Phone: [facility]02-22-2024 14:12-0500 Respiratory rate16 /minDO Zay Arambula Work Phone: [facility]02-22-2024 14:12-0500 SaO2% (BldA) [Mass fraction]97 %DO Zay Arambula Work Phone: [facility]02-22-2024 14:12-0500 Systolic blood ltxeebai112 mm[Hg]DO Zay Arambula Work Phone: [facility]01-25-2024 13:45-0500 Body taitiv749.48 cmZay Arambula Other [facility]01-25-2024 13:45-0500 Body mass index (BMI) [Ratio]30.21 kg/n1WewvdZay Arambula Other [employer] Other [id number] 13:45-0500Body xukznk03.93 kgZay Arambula Other [facility]01-25-2024 13:45-0500 Diastolic blood dvcygmds41 mm[Hg]Zay Arambula Other [facility]01-25-2024 13:45-0500 Respiratory rate16 /minNavjailyn Anayamabel Other [employer] Other 01-25-2024 13:45-1090FdQ3% (BldA) [Mass fraction]96 % Zay Arambula Other [employer] Other 01-25-2024 13:45-0500Systolic blood mkazqcqc841 mm[Hg] Zay Arambula Other [facility]12-28-2023 14:45-0500 Body wrojuk886.48 cmZay Arambula Other [facility]12-28-2023 14:45-0500 Body mass index (BMI) [Ratio]30.47 kg/h4Hjcnq Kuns Other [employer] Other 12-28-2023 14:45-0500Body bbhzyj73.57 kgZay rAambula Other [employer] Other 12-28-2023 14:45-0500Body .56 kgDO Zay Arambula Work Phone: [facility]12-28-2023 14:45-0500 Diastolic blood gixorsbq31 mm[Hg]Zay Arambula Other [facility]12-28-2023 14:45-0500 Respiratory rate16 /minNavjailyn Arambula Other [employer] Other 12-28-2023 14:45-9297AnZ2% (BldA) [Mass fraction]96 % Zayjailyn Anayamabel Other [employer] Other 12-28-2023 14:45-0500Systolic blood vafqbfzw715 mm[Hg] Zay Arambula Other [facility]11-30-2023 14:15-0500 Body lrbqyo141.48 cmNavjailyn Cholo Other [employer] Other 11-30-2023 14:15-0500Body mass index (BMI) [Ratio] 31.02 kg/i0VlxoxZay Arambula Other [employer] Other 11-30-2023 14:15-0500Body umegqg86.93 kgZay Arambula Other [employer] Other 11-30-2023 14:15-0500Diastolic blood lzdjtaxf59 mm[Hg] Zay Arambula Other [employer] Other 11-30-2023 14:15-0500Respiratory rate18 /minBryjailyn Arambula Other [employer] Other 11-30-2023 14:15-1348QmB8% (BldA) [Mass fraction]95 % Zay Arambula Other [employer] Other 11-30-2023 14:15-0500Systolic blood mm[Hg] Zay Arambula Other [employer] Other 11-02-2023 12:30-0400Body knoixx761.48 cmZay Arambula Other [employer] Other 11-02-2023 12:30-0400Body mass index (BMI) [Ratio]32 kg/o0HmndfZay Arambula Other [employer] Other 11-02-2023 12:30-0400Body decefm09.38 kgZay Arambula Other [employer] Other 11-02-2023 12:30-0400Diastolic blood mm[Hg] Zay Arambula Other [employer] Other 11-02-2023 12:30-0400Respiratory rate18 /minZay Arambula Other [employer] Other 11-02-2023 12:30-4524OmD3% (BldA) [Mass fraction]99 % Zay Arambula Other [employer] Other 11-02-2023 12:30-0400Systolic blood ipgxosyw527 mm[Hg] Zayjailyn Anayamabel Other [employer] Other 10-04-2023 09:30-0400Body .48 cmZay Arambula Other [employer] Other 10-04-2023 09:30-0400Body mass index (BMI) [Ratio] 32.55 kg/e2Shetg Kuns Other [employer] Other 10-04-2023 09:30-0400Body ashlts69.74 kgNavjailyn Arambula Other [employer] Other 10-04-2023 09:30-0400Diastolic blood etadywlf65 mm[Hg] Zayjailyn Anayamabel Other [employer] Other 10-04-2023 09:30-0400Respiratory rate16 /minNavjailyn Cholo Other [employer] Other 10-04-2023 09:30-8144ZnU0% (BldA) [Mass fraction]98 % Zay Arambula Other [employer] Other 10-04-2023 09:30-0400Systolic blood qxuoixvp026 mm[Hg] Zay Arambula Other [employer] Other 06-26-2023 14:00-0400Body .48 cmZay Arambula Other [employer] Other 06-26-2023 14:00-0400Body mass index (BMI) [Ratio] 32.19 kg/z1VnrayZay Arambula Other [employer] Other 06-26-2023 14:00-0400Body .83 kgZay Arambula Other [employer] Other 06-26-2023 14:00-0400Diastolic blood mm[Hg] Zay Arambula Other [employer] Other 06-26-2023 14:00-0400Respiratory rate16 /minZay Arambula Other [employer] Other 06-26-2023 14:00-7944QtA1% (BldA) [Mass fraction]97 % Zay Arambula Other [employer] Other 06-26-2023 14:00-0400Systolic blood hswruxfq553 mm[Hg] Zay Arambula Other [employer] Other 05-02-2023 14:45-0400Body pvcumd020.48 cmZay Arambula Other [employer] Other 05-02-2023 14:45-0400Body mass index (BMI) [Ratio]32 kg/j8KrnjfZay Arambula Other [employer] Other 05-02-2023 14:45-0400Body blajif69.38 kgZay Arambula Other [employer] Other 05-02-2023 14:45-0400Diastolic blood vgjncyic73 mm[Hg] Zay Anayamabel Other [employer] Other 05-02-2023 14:45-0400Respiratory rate16 /minBryjailyn Arambula Other [employer] Other 05-02-2023 14:45-2067KxE8% (BldA) [Mass fraction]98 % Zayjailyn Anayamabel Other [employer] Other 05-02-2023 14:45-0400Systolic blood xwzdttmo220 mm[Hg] Zay Cholo Other [employer] Other 04-10-2023 15:00-0400Body sfcrdu192.48 cmNavjailyn Arambula Other [employer] Other 04-10-2023 15:00-0400Body mass index (BMI) [Ratio]32 kg/f1Njndh Kuns Other [employer] Other 04-10-2023 15:00-0400Body canigu97.38 kgZay Arambula Other [employer] Other 04-10-2023 15:00-0400Diastolic blood zfuyvvpe08 mm[Hg] Zay Arambula Other [employer] Other 04-10-2023 15:00-0400Respiratory rate16 /minNavjailyn Arambula Other [employer] Other 04-10-2023 15:00-2262HrW8% (BldA) [Mass fraction]96 % Zay Arambula Other [employer] Other 04-10-2023 15:00-0400Systolic blood mm[Hg] Zayjailyn Arambula Other [employer] Other 12-28-2021 14:45-0500Body eeyfkf317.48 cmZay Arambula Other [employer] Other 12-28-2021 14:45-0500Body zykgpoywzyb49.7 [degF]Zay Arambula Other [employer] Other 12-28-2021 14:45-0500Diastolic blood qtvotwfb15 mm[Hg] Zayjailyn Arambula Other [employer] Other 12-28-2021 14:45-0500Systolic blood rwlezask811 mm[Hg] Zayjailyn Anayas Other [employer] Other 10-26-2021 14:45-0400Body cnulnt540.48 cmNavjailyn Anayamabel Other [employer] Other 10-26-2021 14:45-0400Body mass index (BMI) [Ratio] 31.82 kg/r2WpfmuZay Arambula Other [employer] Other 10-26-2021 14:45-0400Body .93 kgZay Arambula Other [employer] Other 10-26-2021 14:45-0400Diastolic blood mm[Hg] Zay Arambula Other [employer] Other 10-26-2021 14:45-0400Respiratory rate16 /minZay Arambula Other [employer] Other 10-26-2021 14:45-2428NwA5% (BldA) [Mass fraction]97 % Zay Arambula Other [employer] Other 10-26-2021 14:45-0400Systolic blood ypmqeoof538 mm[Hg] Zay Arambula Other [employer] Other Encounters Encounter DateEncounter TypeCare ProviderFacilityStart: 03-16-2025 End: 78-26-6803lsbfwjjlvcQjtzs Kuns DO Work Phone: [employer] [facility] Work Phone: Start: 03-16-2025 End: 51-48-9070Wllpuwl encounter procedureZay Arambula P DO-[facility] [place] Work Phone: Start: 02-08-2025 End: 26-38-1817dsrbrngwbxLqhez Kuns DO Work Phone: [facility] Work Phone: Start: 02-08-2025 End: 13-31-8658Bevopga encounter procedureZay Arambula P DO-[facility] [place] Work Phone: Start: 01-27-2025 End: 95-90-7560rrbtoamzylDwagu Kuns DO Work Phone: [facility] Work Phone: Start: 01-27-2025 End: 85-74-1471Yfzxohq encounter procedureZay Arambula P DO-[facility] [place] Work Phone: Start: 12-15-2024 End: 63-70-2886fxwwoetnhvLrfvd Kuns DO Work Phone: [facility] Work Phone: Start: 12-15-2024 End: 66-13-1380Peowlby encounter procedureNavjailyn Arambula P DO-[facility] [place] Work Phone: Start: 12-08-2024 End: 19-26-7862Nwrxitl encounter procedureZay Arambula P DO-[facility] [place] Work Phone: Start: 11-19-2024 End: 70-47-8727Noyjan flowsheetCorey Yg DO Work Phone: [facility] OBStart: 11-19-2024 End: 85-31-6701Jdqnvs flowsheetCorey Yg DO Work Phone: [facility] OBStart: 11-19-2024 End: 60-29-7395Aupiectwn Result EncounterCorey Yg DO Work Phone: [facility] External Department UnsolicitedStart: 11-19-2024 Non-patient / Non-visitCorey Yg-[facility] Work Phone: Start: 11-19-2024 End: 59-65-0513Uuhmutt encounter procedureCorey Yg DO Work Phone: [facility] Work Phone: Start: 11-19-2024 End: 33-01-2010Watnemhf preventive med est patient 40-64yrsCorey Yg DO Work Phone: [facility] BCP OBComment on above:Well woman exam with routine gynecological exam; Breast cancer screening by mammogram; Postmenopausal stateStart: 11-19-2024 End: 44-95-4995kfudebdbjyLXHDA FAZIONot AvailableStart: 09-09-2024 End: 08-08-7035Rsuqais encounter procedureZay Arambula DO Work Phone: [facility] [place] Work Phone: Start: 09-09-2024 End: 17-70-9933prkmlirdpqZqyzw Kuns DO Work Phone: [facility] Work Phone: Start: 09-09-2024 End: 16-14-5223wyjvmmzdkhKcmgr Kuns DO Work Phone: [facility] Work Phone: Start: 09-09-2024 End: 44-27-4553Rtracyuud for general adult medical examination without abnormal findingsZay Arambula DO [facility] Phone[facility] 09-09-2024 End: 94-79-4192Eboldcs encounter procedureZay Arambula DO Work Phone: [facility] Work Phone: Start: 07-07-2024 End: 87-24-2034Otkyplj encounter procedureZay Arambula DO Work Phone: [facility] [place] Work Phone: Start: 04-13-2024 End: 11-04-4506Bujxdzw encounter procedureDO Zay Arambula Work Phone: [facility] Work Phone: Start: 04-13-2024 End: 80-98-8695dlweulhgbkDR Zay Arambula Work Phone: [facility] Work Phone: Start: 88-42-4863Zqp-patient / Non-visitDO Zay Arambula Work Phone: [facility] Work Phone: Start: 02-11-2024 End: 87-72-9236Uxjppnx encounter procedureDO Zay Arambula Work Phone: [facility] Work Phone: Start: 12-25-2023 End: 34-32-3502Azexkzeqo Result EncounterCorey Yg DO Work Phone: [facility] External Department UnsolicitedStart: 12-25-2023 End: 56-56-7997Szizeltep Result EncounterCorey Yg DO Work Phone: [facility] External Department UnsolicitedStart: 12-13-2023 End: 35-70-7091oyzankkpghSesnp KunsFacility:[facility] Start: 46-78-2607Jqgkzkx encounter procedureCorey Gy DO Work Phone: [facility] HealthcareStart: 09-09-2023 End: 12-39-2532qspusshakkNZ Zay Arambula Work Phone: [facility] Work Phone: Start: 09-09-2023 End: 42-53-8868Uwntlcu encounter procedureDO Zay Arambula Work Phone: [facility] [place] Work Phone: Start: 09-05-2023 End: 25-48-5832Mpzjvsg encounter procedureDO Zay Arambula Work Phone: [facility] [place] Work Phone: Start: 08-08-2023 End: 01-01-7168Ifzptcj encounter procedureDO Zay Arambula Work Phone: [facility] [place] Work Phone: Start: 07-11-2023 End: 82-02-5454mvxvawujkjZlajl Kuns Other [employer] Other Start: 92-31-0519Xjpywu outpatient visit 15 minutes [facility] [place]Start: 07-11-2023 End: 39-23-4325Qkvickg encounter procedureDO Zay Arambula Work Phone: [facility]-Start: 06-13-2023 End: 44-46-5621efsvexcoesSuzty Kuns Other [employer] Other Start: 91-56-0115Amtyjp outpatient visit 15 minutes Z[facility] [place]Start: 06-13-2023 End: 21-34-5599Urlokki encounter procedureDO Zay Arambula Work Phone: [facility] [place] Work Phone: Start: 05-16-2023 End: 54-09-4396suzkbezqpoXbiej Kuns Other [employer] Other Start: 78-55-2751Koednz outpatient visit 15 minutes [facility] [place]Start: 04-19-2023 End: 95-77-9613tepwpobyuhTaklz [employer] Other [employer] Other Start: 63-37-3011Djqdoesbq encounterZay [facility] [place]aliaStart: 04-18-2023 End: 22-31-7755ycrtubalveLiylp Kuns Other [employer] Other Start: 95-74-9794Ozkhxp outpatient visit 15 minutes [facility] [place]Start: 03-20-2023 End: 94-01-5396jivsbckyxsBmrih Kuns Other [employer] Other Start: 32-99-9009Vwzjvl outpatient visit 15 minutes [facility] [place]Start: 02-18-2023 End: 66-73-1948tqgqqyyohuRdcza Kuns Other [employer] Other Start: 55-42-5267Quddjipwl by computer linkBryan Héctors [facility] [place]Start: 01-16-2023 End: 23-12-8872omgmufbexsIyeml Kuns Other [employer] Other Start: 79-42-4341Edpyynfrr by computer linkBryan Héctors [facility] [place]Start: 12-10-2022 End: 11-62-3375wrjpnagskgXdgre Kuns Other [employer] Other Start: 51-62-0317Iaxcyk outpatient visit 15 minutes Zay ArambulaG [facility] [place]Start: 12-07-2022 End: 97-41-9394dobkkkdjcyBgfrv Kuns Other [employer] Other Start: 64-00-8393Kvazwkaty encounterBryjailyn CholoG [facility] [place]Start: 12-02-2022 End: 78-87-7714eabiahxqduLmuaa Kuns Other [employer] Other Start: 29-15-0973Bjzgtqtql by computer linkBryan Kuns [facility] [place]Start: 11-13-2022 End: 25-74-6196smzzfinqnjFB ZAY ARAMBULAFacility:H8Abste: 10-18-2022 End: 33-29-9123leippfplndYvssu Kuns Other [employer] Other Start: 65-48-2832Gazmessdj encounterBryjailyn AnayamabelBRADG [facility] [place]Start: 10-16-2022 End: 97-52-2608nyamizeetcIrfuk Héctors Other [facility] [employer] Other Start: 02-64-2980Xklcun outpatient visit 15 minutes Zay AnayamabelBRADG [facility] [place]aliaStart: 43-27-9996Fayevrcse encounterBryjailyn AnayamabelG [facility] [place]Start: 09-28-2022 End: 91-11-3021gssftwiomwQJ Zay Arambula Work Phone: [facility] Work Phone: Start: 09-28-2022 End: 58-06-6848Nnaytec encounter procedureDO Zay Arambula Work Phone: [facility] [place] Work Phone: Start: 09-24-2022 End: 23-03-7442uacgzlqymuHjwyc Kuns Other [facility] [employer] Other Start: 75-10-9704Emyytk outpatient visit 25 minutes Zay AnayamabelBRADG [facility] [place]Start: 07-17-2022 End: 91-77-1989dvqgufajitKqwqb Kuns Other [employer] Other Start: 49-28-9100Qqioifnin by computer Bethel Arambula [facility] [place]Start: 06-28-2022 End: 77-25-5833cbwyqanfczMgdan Kuns Other [employer] Other Start: 43-75-4442Bdivxjypj encounterBryjailyn ArambulaG [facility] [place]Start: 06-02-2022 End: 37-93-9083fwbqepfhurBpjev Kuns Other [employer] Other Start: 70-58-3148Xlmkrywzy by computer linkBryjailyn Arambula [facility] [place]Start: 12-04-2021 End: 58-10-3217tzfivdzhenRehjb Kuns Other [employer] Other Start: 99-70-2600Ompifamug by computer linkBryjailyn Arambula [facility] [place]Start: 11-16-2021 End: 31-60-8501cgkiiapfwgMhoqf Hé[employer] Other [employer] Other Start: 68-42-6466Mcdkkihgz encounterBryjailyn ArambulaG [facility] [place]Start: 06-18-2021 End: 06-83-1514zzhdrhnmxqXesxg Kuns Other [employer] Other Start: 22-24-2896Djcdaescj by computer sadafBryjailyn Arambula [facility] [place]Start: 06-13-2021(Televisit) TelevisitZay CholoG [facility] [place]Start: 06-13-2021 End: 45-05-0868gdzelzwgvySwega Kuns Other [employer] Other Start: 05-01-2021 End: 75-13-7376releavdcujJwhfw Kuns Other [employer] Other Start: 19-15-2069Gtqyeunya by computer linkBryan Cholo [facility] Family [facility] [place]Start: 55-91-5235Wujrjc outpatient visit 15 minutes Zay CholoFPG [facility] [place] Procedures DateProcedureProcedure DetailPerforming ClinicianStart: 41-05-2887Xqpmb Strep (POC)Zay Arambula DO Work Phone: Start: 77-07-5987UIC,APTIMA HPV,AGE GDLNCorey Yg DO Work Phone: Start: 62-81-4665N-ray of left knee, four viewsDO Zay Arambula Work Phone: Start: 41-99-2107Lqdyr Strep (POC)DO Zay Arambula Work Phone: Start: 68-90-0206FIM (POC)DO Zay Arambula Work Phone: Start: 96-33-8160HU TOMOSYNTHESIS SCREENING BICorey [employer] Work Phone: Start: 49-80-6860RzeljsopfqqSchgb Yg DO Work Phone: Start: 94-54-2691Ekgfjnonauo observation [Identifier] in Cervix by Cyto stainCorey IdeaString DO Work Phone: ElectrocardiogramZay Arambula Other Plan of Treatment DateCare ActivityDetailAuthorStart: 74-31-8030Ubqfmiesk for malignant neoplasm of cervixNOMS HealthcareStart: 96-04-4411Fegtiaodo for malignant neoplasm of cervixPap SmearNOMS HealthcareStart: 40-22-8953Ddhyiuksa for malignant neoplasm of colonNOMS HealthcareStart: 11-30-2025 End: 44-43-7193Mvjzxhs encounter procedureNOMS BCP OBStart: 42-07-3182Swbelocln vaccinationNOMS HealthcareStart: 63-56-7453Tsnsivlzw for malignant neoplasm of breastMammogramNOMS HealthcareStart: 11-19-2024 End: 09-51-0483OF Breast - bilateral ScreeningBilateral screening mammogram Imaging Routine Breast cancer screening by mammogram Expected: 11/19/2024, Expires: 01/19/2026[facility] Work Phone: comment on above:Expected: 11/19/2024, Expires: 01/19/2026Start: 11-19-2024 End: 93-63-3136Moefleh encounter fbxemolus25/05/2025 9:00 AM EDT Office Visit [facility] [address] [address] Mariana Ronquillo, DO [address] [place] [address] [facility]OL[facility] OBComment on above:ArrivedStart: 00-61-9096CowsvdboqMansfield Hospitaltart: 67-42-6454FvtrobhqmMansfield Hospitaltart: 24-40-1257Gvrnpakhh for malignant neoplasm of colonNODE HealthcareAlbumin/Globulin ratioUniversity Hospitals Conneaut Medical CenterAnion gap measurementUniversity Hospitals Conneaut Medical CenterBasophils [#/volume] in Blood by Automated countUniversity Hospitals Conneaut Medical CenterBasophils/100 leukocytes in Blood by Automated countUniversity Hospitals Conneaut Medical CenterCalculated LDL cholesterol levelUniversity Hospitals Conneaut Medical CenterCholesterol.total/Cholesterol in HDL [Mass Ratio] in Serum or PlasmaUniversity Hospitals Conneaut Medical Center Eosinophils/100 leukocytes in Blood by Automated countUniversity Hospitals Conneaut Medical CenterErythrocyte distribution width [Ratio] by Automated countUniversity Hospitals Conneaut Medical CenterErythrocytes [#/volume] in BloodUniversity Hospitals Conneaut Medical CenterGlobulin [Mass/volume] in SerumUniversity Hospitals Conneaut Medical Center Glucose measurement estimated from glycated hemoglobinUniversity Hospitals Conneaut Medical CenterGlucose measurement estimated from glycated hemoglobinUniversity Hospitals Conneaut Medical CenterHematocrit [Volume Fraction] of BloodUniversity Hospitals Conneaut Medical CenterHemoglobin [Mass/volume] in [facility] Hemoglobin A1c/Hemoglobin.total in [facility] Leukocytes [#/volume] corrected for nucleated erythrocytes in Blood by Automated counUniversity Hospitals Conneaut Medical CenterLeukocytes [#/volume] in BloodUniversity Hospitals Conneaut Medical CenterLymphocytes [#/volume] in Blood by Automated count [facility] Medical CenterLymphocytes/100 leukocytes in Blood by Automated [facility] CenterMCH [Entitic mass] by Automated [facility] Medical CenterMCHC [Mass/volume] by Automated count [facility] Medical CenterMCV [Entitic volume] by Automated [facility] HospitalMonocytes [#/volume] in Blood by Automated [facility] CenterMonocytes/100 leukocytes in Blood by Automated [facility] CenterNeutrophils [#/volume] in Blood by Automated [facility] CenterNeutrophils/100 leukocytes in Blood by Automated [facility] CenterNucleated erythrocytes [Presence] in Blood by Automated [facility] Medical CenterPlatelet mean volume [Entitic volume] in Blood by Automated [facility] Medical CenterPlatelets [#/volume] in BloodUniversity Hospitals Conneaut Medical CenterTHIN PREP TIS PAP AND HR HPV DNATHIN PREP TIS PAP AND HR HPV DNA Pathology and Cytology Routine Well woman exam with routine gynecological exam Ordered: 11/19/2024NODE HealthcareComment on above:Ordered: 11/19/2024VLDL cholesterol measurementUniversity Hospitals Conneaut Medical Center Immunizations Immunization DateImmunizationNotesCare WifvycprXmyaqerr63-58-6444WXLQO-33 mRNA, Comirnaty (Pfizer)DO Zay Arambula Work Phone: [facility]04-28-2021COVID-19 Vaccine Pfizer - Documentation Purposes OnlyZay Arambula Other [facility]04-07-2021COVID-19 Vaccine Pfizer - Documentation Purposes OnlyZay Arambula Other [facility]04-12-2019influenza, seasonal, injectablePatient ObjectionZay Anayas Other [place] [employer] Other NEGATED: Highlighted row has not occurred!09-26-2018 influenza, seasonal, injectablePatient ObjectionZay Anayas Other [facility] Payers DatePayer CategoryPayerPolicy [id number]-[id number] Cross Blue ShieldBCBS [id number] 2..1.170757.3.57[id number] 2.0.1.212733.3.579.2.989874-70-5989Qbri Cross Blue [id number] 2..1.067254.19UnknownHCAP/HFA/FAP Active [id number] 2.[id number] 2.160.1.034927.3.579.2.531 [id number] 2.16840.1.8[id number] 2.0.1.326026.3.579.2.531 Social History DateTypeDetailFacilityUnknown if ever smokedPeopleDoc Other Start: 39-73-9521Kmm Assigned At BirthIntimate Bridge 2 Conception Other Start: 04-30-2017 End: 29-94-2519Nkyshpn smoking status NHISEx-smoker (finding)[facility] Hospitaltart: 11-82-3982Dxa [facility]igned [facility]ertart: 09-09-2024 End: 72-15-0694XzdFnugfr (finding)[facility] Medical CenterHistory of tobacco useCurrent smokerNOMS HealthcareHistory of tobacco useCigarette Smoker [facility] HealthcareStart: 04-58-5955Mgmlbcm use and exposureSmokeless tobacco non-userNOMS HealthcareStart: 46-85-9092Afxnwwijk beverage intakeCurrent drinker of alcohol (finding)[facility] HealthcareStart: 08-21-0974Qxgippjnz beverage intake [facility] HealthcareStart: 15-68-7158Iehetj identityIdentifies as female gender (finding)[facility] HealthcareStart: 84-83-6420Krovmo orientationHeterosexual (finding)[facility] HealthcareStart: 79-83-1354IjtZskvraLKVK Healthcare Clinical Notes 07-18-2016 to 01-27-2025 Note Date & CwlaFvsrLictfxxt70-61-5613 Evaluation note* Author Elodia Castle [facility] 2024 11:22amSooner if needed, the ER if concerns,The above note written by Elodia Castle LPN acting as human recorder, note dictated by Dr. Zay Arambula [facility] Work Phone: 1(497) 976-467708-13-2025 Evaluation note* Author Elodia Castle [facility] 2024 11:22amSooner if needed, the ER if concerns,The above note written by Elodia Castle LPN acting as human recorder, note dictated by Dr. Zay Arambula Author Franny Alvarado [facility] 2024 3:27pmThe above note written by RICH Cai acting as human recorder, note dictated by Dr. Zay Arambula. [facility] Work Phone: 1(520) 154-510706-24-2025 Evaluation note* Diagnosis Onset Date Resolution Status Admit Date Acute cough acuteJune 2024 2:56pmSore throatacuteJune 2024 2:56pmDepressionacute Marina 2024 12:11pmSomatic dysfunction of cervical regionacuteJuly 2024 12:11pmTension headacheacuteJuly 2024 12:11pm [facility] Work Phone: 1(346) 242-599306-05-2025 History of Present illness Narrative* Pam Acevedo, ALECIA - 11/19/2024 9:00 AM EDT Reason for [...] DILATION AND CURETTAGE OF UTERUS HYSTERECTOMY 08/11/2018 [place] TONSILLECTOMY & ADENOIDECTOMY <AGE 12 TUBAL LIGATION [...] nursing note reviewed. Exam conducted with a hand bindery assembly worker present. Vitals: Estimated body mass index is 31.64 kg/m as calculated from the following: Height as [...] by Pam Acevedo LPN on behalf of: Mariana Ronquillo DO documented in this encounterUniversity Health Truman Medical CenterUjmzlcfegg09-58-8689 Evaluation note* Author Magali Cardoso [facility] 2024 9:24amThe above note written by Magali Cardoso LPN, acting as human recorder, note dictated by Dr. Zay Arambula. [facility] Work Phone: 1(244) 337-176208-27-2024 Evaluation note* Author Magali ChristiansenK[facility] 2023 2:27pmThe above note written by Magali Cardoso LPN, acting as human recorder, note dictated by Dr. Zay Arambula. [facility] Work Phone: 1(189) 408-742102-22-2024 Evaluation note* Author rFanny Alvarado [facility] 20[facility] 3:53pmThe above note written by RICH Cai acting as human recorder, note dictated by Dr.Bryan Arambula. Author Elodia Castle [facility] 2023 2:12pmSooner if needed, the ER if concerns,The above note written by Elodia Castle LPN acting as human recorder, note dictated by Dr. Zay Arambula [facility] Work Phone: 1(158) 147-331001-25-2024 Evaluation note* Encounter Date Diagnosis Assessment Notes Treatment Notes Treatment Clinical Notes Jun, BMI 30.0-30.9,adult (ICD-10 - Z6 8.30) Patient is to continue with the above medication. Encouraged patient with her efforts in weight loss. Refill provided. We will follow up again next month. Jun,Obesity (ICD-10 - E66.9) Encouraged to watch diet and increase exercise regimen; we will continue to monitor. [employer] Other 12-28-2023 Evaluation note* Encounter Date Diagnosis Assessment Notes Treatment Notes Treatment Clinical Notes May, Obesity (ICD-10 - E66.9) Encouraged she continue with weight loss efforts. May,MI 30.0-30.9,adult (ICD-10 - Z68.30) Patient has lost three pounds and was advised she needs to lose another five pounds over the next two months to continue after the initial three months. Patient encouraged to stay active and monitor diet to promote optimal weight loss. Refill e-scribed. 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 She also has multiple other spots on her arms and legs that I advised should be monitored. She is in agreementwith getting established with dermatology. She will call if a referral is needed. May,Other asthma (ICD-10 - J45.998) Brand symbicort is no longer covered as of the beginning of the year, generic printed to take in when she needs a refill. [employer] Other 11-30-2023 Evaluation note* Encounter Date Diagnosis Assessment Notes Treatment Notes Treatment Clinical Notes Apr, Other obesity due to excess radha wagner (ICD-10 - E66.09) Encouraged to watch diet and increase exercise regimen; we will continue to monitor. Apr,MI 31.0-31.9,adult (ICD-10 - Z68.31) Patient presents in the office with a nine pound weight loss from last check. Refill provided. Apr,nxiety (ICD-10 - F41.9) Patient admits to increase of anxiety, stress and irritability. Patient has been on different SSRI's in the past. The patient has on prozac in the past that Dr. Ronquillo did prescribe and she does recall this helping. Therefore I did prescribe the above medication. Apr,Other asthma (ICD-10 - J45.998) The patient got a notice her insurance will no longer be covering the symbicort inhaler, patient isto bring in the letter from her insurance at the next appointment to see what they will cover. [employer] Other 11-03-2023 Evaluation note* Encounter Date Diagnosis Assessment Notes Treatment Notes Treatment Clinical Notes Apr, Other obesity due to excess radha wagner (ICD-10 - E66.09) [employer] Other 11-02-2023 Evaluation note* Encounter Date Diagnosis Assessment Notes Treatment Notes Treatment Clinical Notes Apr, Other obesity due to excess radha wagner (ICD-10 - E66.09) Pt's goal was to [...] OARRS report was generated and reviewed. Pt isto continue with the above medication and continue watching their diet and increase their exercise regimen. Apr,ody mass index [BMI] 32.0-32.9, adult (ICD-10 - Z68.32) [employer] Other 10-04-2023 Evaluation note* Encounter Date Diagnosis Assessment Notes Treatment Notes Treatment Clinical Notes Mar, Dizziness (ICD-10 - R42) Dizziness has subsided somewhat. It is triggered periodically when she gets her hair done. Mar,Seasonal allergies (ICD-10 - J30.2) Mar,Screening for colon cancer (ICD-10 - Z12.11) Recent cologuard from 12/2022 was negative. This will be repeated in 3 years. To report any changes in stools Mar,Hyperglycemia (ICD-10 - R73.9) In house A1C is 5.5 which has improved from previous. She has modified her diet and has tried to reduce her carb and starch intake. I do want her to continue with diet modification. Increase activityas tolerated and she needs to work on weight loss. Mar,Essential (primary) hypertension (ICD-10 - I10) Blood pressure is well controlled on the lisinopril She denies any cough. I do wish to keep her on the current meds as ordered and I want her to continue to monitor her BP at home. Work on weight loss Mar,Other obesity due to excess calories (ICD-10 - E66.09) Patient is wanting to lose weight. She had taken Adipex by a different provider over a year ago anddid well on it. She is interested in [...] months. EKG in office does not show anychanges from the previous. Safe to start medication Mar,ody mass index [BMI] 32.0-32.9, adult (ICD-10 - Z68.32) Patient needs to reduce her caloric intake. Increase activity and work on weight loss. I will initiate adipex today. [employer] Other 09-04-2023 Evaluation note* Encounter Date Diagnosis Assessment Notes Treatment Notes Treatment Clinical Notes Feb, Other asthma (ICD-10 - J45.998) [employer] Other 06-26-2023 Evaluation note* Encounter Date Diagnosis Assessment Notes Treatment Notes Treatment Clinical Notes Nov, Dizziness (ICD-10 - R42) Patient voices significant improvement on antivert. She describes several instances of vertigo in afew days time before calling last Saturday when antivert was prescribed for her. Upon examination I did reproduce a slight vertiginious episode with head maneuver, very mild in nature. Work note provided, she may continue with antivert as needed. Nov,Screening for colon cancer (ICD-10 - Z12.11) [employer] Other 06-23-2023 Evaluation note* Encounter Date Diagnosis Assessment Notes Treatment Notes Treatment Clinical Notes Nov, Vertigo (ICD-10 - R42) [employer] Other 06-18-2023 Evaluation note* Encounter Date Diagnosis Assessment Notes Treatment Notes Treatment Clinical Notes Nov, Essential (primary) hypertension (ICD-10 - I10) [employer] Other 05-02-2023 Evaluation note* Encounter Date Diagnosis [...] to continue to monitor diet and exercise. October,Hyperglycemia (ICD-10 - R73.9) Fasting glucose reading of 105 and A1C reading of 5.8. Therefore, patient is to continue to monitordiet and exercise. October,Fatigue, unspecified type (ICD-10 - R53.83) Iron levels and thyroid levels are WNL upon review of blood work results. October,Migraine (ICD-10 - G43.909) Patient admits to missing two days of work back in August due to migraines. I am agreeable that the patient needs to get FMLA for migraines and I am agreeable to provide this for her. Refill provided of the above medication. [employer] Other 04-10-2023 Evaluation note* Encounter Date Diagnosis Assessment Notes Treatment Notes Treatment Clinical Notes Sep, Hand pain, right (ICD-10 - M79.6 41) Patient does have significant pain and swelling in her right hand but she does repetitive movementsat work using a cutting tool. Sep,Seasonal allergies (ICD-10 - J30.2) I did suggest updating blood work then as long as everything looks okay, we will discuss a kenalog injection when she returns as OTC allergy medications are not as effective. Sep,Lumbar back pain (ICD-10 - M54.50) Patient does have intermittent back pain that is worsened with different tasks at work. Sep,Fatigue (ICD-10 - R53.83) Patient reports significant fatigue [...] joint pain/swelling. Blood work ordered to update. Sep,Hyperlipidemia (ICD-10 - E78.5) Blood work ordered to update. Sep,Hyperglycemia (ICD-10 - R73.9) Blood work ordered to update. Sep,Sinusitis (ICD-10 - J32.9) Above prescribed to alleviate sinus symptoms related to the weather. She was advised if the oral steroids help but wear off and symptom start to return, we will discuss a kenalog injection when she comes back to review her blood work. Pt was advised to get blood work before starting oral steroid but she may start the zpak right away. [employer] Other 01-31-2023 Evaluation note* Encounter Date Diagnosis Assessment Notes Treatment Notes Treatment Clinical Notes Jun, Other asthma (ICD-10 - J45.998) [employer] Other 01-12-2023 Evaluation note* Encounter Date Diagnosis Assessment Notes Treatment Notes Treatment Clinical Notes Jun, Other asthma (ICD-10 - J45.998) [employer] Other 12-17-2022 Evaluation note* Encounter Date Diagnosis Assessment Notes Treatment Notes Treatment Clinical Notes May, Essential (primary) hypertension (ICD-10 - I10) [employer] Other 06-20-2022 Evaluation note* Encounter Date Diagnosis Assessment Notes Treatment Notes Treatment Clinical Notes Nov, Essential (primary) hypertension (ICD-10 - I10) [employer] Other 12-28-2021 Evaluation note* Encounter Date Diagnosis Assessment Notes Treatment Notes Treatment Clinical Notes May, Cough (ICD-10 - R05) I did prescribe the above antibiotic with steroids and encouraged patient to increase fluids. Discussed with patient if the symptoms persist, suggest a covid test. Patient verbally understood. May,dema of hand (ICD-10 - R60.0) Reviewed XR results with the patient May,ight hand pain (ICD-10 - M79.641) Reviewed XR results with patient. Noted mild arthritis at the right thumb. I advised patient to continue using topical as needed. May,Other asthma (ICD-10 - J45.998) Patient is to continue with the above inhaler as needed. [employer] Other 11-15-2021 Evaluation note* Encounter Date Diagnosis Assessment Notes Treatment Notes Treatment Clinical Notes Apr, Pain of finger of right hand (IC D-10 - M79.644) Apr,Other asthma (ICD-10 - J45.998) [employer] Other 10-26-2021 Evaluation note* Encounter Date Diagnosis Assessment Notes Treatment Notes Treatment Clinical Notes Mar, Migraine (ICD-10 - G43.909) I did provide a refill of the above medication for patient to take as needed for migraine. Mar,Hyperglycemia (ICD-10 - R73.9) Patients A1C reading of 5.6 upon review of blood work results. Mar,Fatigue, unspecified type (ICD-10 - R53.83) Patients TSH and iron levels are WNL upon review of blood work results. Mar,Hyperlipidemia (ICD-10 - E78.5) Patients cholesterol levels continue to be WNL upon review of blood work results. Therefore I encouraged patient to continue with diet and exercise. Mar,ain of finger of right hand (ICD-10 - M79.644) Noted right middle finger. Patient reports pain, swelling and tingling sensation. I did provide sample of the above topical cream. XR order provided to rule out abnormalities. [employer] Other 02-01-2017 History general Narrative - Reported* Type Description Date Medical History hypertension 2010 Medical Historymammogram (2010)Medical History07/2016 Right Nephrolithiasis Medical Gfpiyxh6807/27/2016Medical HistoryFollows with Dr. Ronquillo for paps and mammogramsMedical Ngzhlqn57/2020 Mammogram, PAP smear, and DEXA at [facility] Surgical Historygallbladder dggihcw4546Gaznchzb Historytonsils bpqqosd2345's Surgical Historyc-pnrycln3447Lckvyffi HistoryD&C4/2016Surgical History Gsdnofugksfi84/2019Hospitalization Historysee above [facility] [employer] Other [id number] History general Narrative - Reported* Type Description Date Medical History hypertension 2010 Medical Historymammogram (2010)Medical History07/2016 Right Nephrolithiasis Medical Ehpqcfv2407/27/2016Medical HistoryFollows with Dr. Ronquillo for paps and mammogramsMedical Urtoldb02/2020 Mammogram, PAP smear, and DEXA at [facility] Medical Haxuewx3812/21/2022 Negative cologuardSurgical Historygallbladder removed 1994Surgical Historytonsils pmtsmga7038'sSurgical Historyc-ggvswxc1255Vanlgcse HistoryD&C4/2016Surgical XysolzyWaqhiyfygzzl91/2018Hospitalization Historysee above [employer] [facility] [employer] Other Evaluation noteNort [employer] Other Evaluation noteNo InformationNortWills Eye Hospital On[employer] Other Evaluation noteNo assessment information available [facility] Work Phone: Evaluation note* Author Magali Cardoso [facility] HospitalhoredTrihealth [facility] 2024 9:24amThe above note written by Magali Cardoso LPN, acting as human recorder, note dictated by Dr. Zay Arambula. [facility] Work Phone: Evaluation note* Diagnosis Well woman exam with routine gynecological exam Routine gynecological examination Breast cancer screening by mammogram Postmenopausal state Asymptomatic postmenopausal status (age-related) (natural) documented in this encounter [facility]OM[facility] HealthcareEvaluation note* Author Elodia Castle [facility] Medical CenterJaysonredWillie 2024 11:22amSooner if needed, the ER if concerns,The above note written by Elodia Castle LPN acting as human recorder, note dictated by Dr. Zay Arambula [facility] Work Phone: History general Narrative - ReportedNoConemaugh Miners Medical Center OnDeck Other Reason for referral (narrative)No reason for referral information availableHocking [facility] Work Phone: Chief Complaint and Reason for Visit Chief Complaint E78.5 R53.83 r73.9 Chief Complaint Adipex Adipex adipex adipex E78.5Reason for VisitBody mass index 29.0-29.9, adult Obesity BMI 28.0-28.9,adult Depression Hyperglycemia Hyperlipidemia Obesity Chief Complaint 2 month f/u Amb Documentation m25.562Reason for VisitBMI 27.0-27.9,adult Obesity Stress at home Headache Sinusitis [...] 3am z00.00 September 09, 2024 9:5 3am Chief Complaint Admit Date swab for everything,sinus ,sore throat, congestion December 08, 2024 2:56pm sinus congestion not improving per bpk Alida parker 2024 12:11pm Reason for Visit Admit Date Acute cough December 08, 2024 2:56 pm Sore throat December 08, 2024 2:56 pm Depression December 15, 2024 12:11 pm Somatic dysfunction of cervical region Alida parker 2024 12:11pm Tension headache December 15, 2024 12:11 pm Chief Complaint Admit Date swab for everything,sinus ,sore throat, congestion December 08, 2024 2:56pm sinus congestion not improving per [facility] 2024 12:11pm per bpk work note January 27, 2025 10 :54am Reason for Visit Admit Date Acute cough December 08, 2024 2:56 pm Sore throat December 08, 2024 2:56 pm Depression December 15, 2024 12:11 pm Somatic dysfunction of cervical region J keith 2024 12:11pm Tension headache December 15, 2024 12:11 pm Hypertension January 27, 2025 10 :54am Viral gastroenteritis January 27, 2025 10:54am Chief Complaint Admit Date swab for everything,sinus ,sore throat, congestion December 08, 2024 2:56pm sinus congestion not improving per bpk [facility] 2024 12:11pm per bpk work note January 27, 2025 10 :54am BP per Dr. Arambula/ VANDANA February 08, 2025 1:56pm Reason for Visit Admit Date Acute cough December 08, 2024 2:56 pm Sore throat December 08, 2024 2:56 pm Depression December 15, 2024 12:11 pm Somatic dysfunction of cervical region J keith 2024 12:11pm Tension headache December 15, 2024 12:11 pm Hypertension January 27, 2025 10 :54am Viral gastroenteritis January 27, 2025 10:54am Hypertension February 08, 2025 1: 56pm Migraine February 08, 2025 1: 56pm Chief Complaint Admit Date per bpk work note January 27, 2025 10 :54am BP per Dr. Arambula/ VANDANA February 08, 2025 1:56pm HTN med check March 16, 2025 2:01pm Reason for Visit Admit Date Hypertension January 27, 2025 10 :54am Viral gastroenteritis January 27, 2025 10:54am Hypertension February 08, 2025 1: 56pm Migraine February 08, 2025 1: 56pm Hypertension March 16, 2025 2:01pm Migraine March 16, 2025 2:01pm Advance Directives Advance Directive Response Recorded Date/ Time Advance Directives No February 4:24pm Advance Directive Response Recorded Date/ Time Advance Directives No December 08 2:36pm Summary Purpose Family History Relationship Condition Age at Onset Recorded Date/T ramez brother Unknown fatherDeceasedUnknownfamily memberDeceasedUnknownNot SpecifiedHypertension UnknownFamily history of mental disorderUnknownnatural sonDiabetes mellitus UnknowndaughterHigh blood cholesterolUnknownDisorder of thyroidUnknown Relationship Condition Age at Onset Recorded Date/T ramez brother Unknown sonDiabetes mellitusUnknowndaughterHigh blood cholesterolUnknownDisorder of thyroidUnknownmotherHypertensionUnknownCerebrovascular accident (CVA)Unknown Family history of mental disorderUnknownHeart diseaseUnknown Relationship Condition Age at Onset Recorded Date/T ramez daughter High blood cholesterol Unknown Disorder of thyroidUnknownmotherHypertensionUnknownCerebrovascular accident (CVA)UnknownFamily history of mental disorderUnknownsonDiabetes mellitusUnknown Heart diseaseUnknown Additional Source Comments REASON FOR VISIT (unrecogniz ed section and content) ReasonCommentsWell Women Visit Care Teams (unrecognized sec tion and content) Team Status: Active Member Role Status Jhonny Arambula DO Primary Care Provider Active Team Status: Inactive Member Role Status Jhonny Arambula DO Primary Care Provider Active Sta rt: January 27, 2025 End: January 27gen Arambula DOAttending ProviderActiveStart: January 27, 2025 End: January 27, 2025 Team Status: Inactive Member Role Status Dates Zay Arambula DO Primary Care Provider Active Sta rt: February 08, 2025 End: February 08gen Arambula DOAttending ProviderActiveStart: February 08, 2025 End: February 08, 2025 Team Status: Inactive Member Role Status Jhonny Arambula DO Primary Care Provider Active Sta rt: March 16, 2025 End: March 16gen Arambula DOAttending ProviderActiveStart: March 16, 2025 End: March 16, 2025 Team Status: Active Member Role Status Jhonny Arambula DO Primary Care Provider Active Sta rt: November 19, 2024 Mariana Yg , DOAttending ProviderActiveStart: November 19, 2024 Team Status: Inactive Member Role Status Dates Zay Arambula DO Primary Care Provider Active Sta rt: December 08, 2024 End: December 08gen Arambula DOAttending ProviderActiveStart: December 08, 2024 End: December 08, 2024 Team Status: Inactive Member Role Status Dates Zay Aarmbula DO Primary Care Provider Active Sta rt: December 15, 2024 End: December 15gen Arambula DOAttending ProviderActiveStart: December 15, 2024 End: December 15, 2024 Team Status: Inactive Member Role Status Dates Zay Arambula DO Primary Care Provider, Attending Provi melodie Active Team Status: Inactive Member Role Status Dates Zay Arambula DO Attending Provider Active Start: June 13, 2023 End: June 13, 2023 Team Status: Inactive Member Role Status Dates Zay Arambula DO Attending Provider Active Start: July [...] Team Status: Inactive Member Role Status Jhonny Arabmula DO Primary Care Provide r, Attending Provider Active Start: February 11, 2024 End: February 11, 2024 Team Status: Active Member Role Status Dates Zay Arambula DO Primary Care Provider Active Sta rt: March 12, 2024 Franny Alvarado RMAAttenmanas ProviderActiveStart: March 12, 2024 Team Status: Inactive Member Role Status Dates Zay Arambula DO Primary Care Provide r, Attending Provider Active Start: April 13, 2024 End: April 13, 2024 Team Status: Inactive Member Role Status Jhonny Arambula DO Primary Care Provide r, Attending Provider Active Start: July 07, 2024 End: July 07, 2024 Team Status: Inactive Member Role Status Dates Zay Arambula DO Primary Care Provide r, Attending Provider Active Start: September 09, 2024 End: September 09, 2024 Team Status: Active Member Role Status Dates Zay Arambula DO Primary Care Provide r, Attending Provider Active Start: September 09, 2024 Team MemberRelationshipSpecialtyStart DateEnd Date Héctormabel Zay Renu PCP General11/13/22Team MemberRelationshipSpecialtyStart DateEnd Date Héctormabel Zay Renu PCP [facility]11/13/22Team MemberRelationshipSpecialtyStart DateEnd Date Héctormabel Zay Renu PCP [facility]11/13/22 Goals (unrecognized section and content) Goals may be documented in a n alternate section INFORMATION SOURCE (unrecogn ized section and content) DATE CREATED AUTHOR 11/23/2022 [facility] DATE CREATED AUTHOR AUTHOR'S FRANCIA DUMONTION 09/30/2024 [facility] DATE CREATED AUTHOR AUTHOR'S ORGANIVET ATION 11/20/2024 [facility] EPIC FOR RECORDS PERTAINING TO PATIENTS WHO ARE [...] BE BASED ON THE PRIMARY CLINICAL RECORDS. [employer] provides no warranty or guarantee of the accuracy or completeness of information in this document.
== END 2025-04-27 14:42 | disposition home or self-care (01) ==
LOC: MAMMO 14:41
PROVIDERS: PCP Family Medicine; Visit Provider Obstetrics & Gynecology
DX: Z12.31 Encounter for screening mammogram for malignant neoplasm of breast (principal); Z80.1 Family history of malignant neoplasm of trachea, bronchus and lung; Z80.8 Family history of malignant neoplasm of other organs or systems
CPT/HCPCS: 77063; 77067